=== PATIENT | female | born 1980 | race Caucasian/White ===

== ENCOUNTER 2019-12-02 13:33 | Emergency (ER) | payer SELFPAY ==
[~2019-12-02] VITALS: Ht 167.6 cm; Wt 102.2 kg
[2019-12-02 13:35] VITALS: BP 114/77
[2019-12-02] MEDS ORDERED: IV NORMAL SALINE 1,000ML 1,000 ML IV ONE (14:00)
--- NOTE | 2019-12-02 14:23 | RAD ---
INDICATION: Reason: cough / Spl. Instructions: / History: COMPARISON: None. FINDINGS: Single view of chest obtained. Cardiac silhouette is unremarkable. A definite focal region of airspace consolidation or edema is not seen. IMPRESSION: * No focal airspace consolidation or edema. Electronically signed by: Rizwan Deluca MD (12/02/2019 2:20 PM) [id number]
[2019-12-02] MEDS ORDERED: ONDANSETRON PF 4 MG/2 ML VIAL. IVP ONE (15:00)
[2019-12-02] MEDS ORDERED: FAMOTIDINE 20 MG/2 ML VIAL IVP ONE (15:00)
[2019-12-02] MEDS ORDERED: PANTOPRAZOLE IV 40 MG VIAL. IVP ONE (15:00)
--- NOTE | 2019-12-02 15:04 | PHYS DOC ---
General Adult EDM: Chief Complaint: COUGH HPI: HPI: 39-year-old female presents with 5-day history of cough, fatigue, and abdominal pain. The pain is a cramping and burning of mild intensity. She has had occasional vomiting, but more persistent nausea. The patient has a known peptic ulcer and takes medication for this. She ran out 1 week ago. She has not had a fever at home. She has no known COVID-19 symptoms, but she does go to work and occasionally to the store. Review of Systems: Review of Systems: Constitutional: Denies fever or chills. Fatigue. Eyes: Denies change in visual acuity HENT: Denies nasal congestion or sore throat Respiratory: Cough without shortness of breath Cardiovascular: Denies chest pain or edema GI: nausea, vomiting. : Denies dysuria Musculoskeletal: Denies back pain or joint pain Integument: Denies rash Neurologic: Denies headache, focal weakness or sensory changes Endocrine: Denies polyuria or polydipsia Lymphatic: Denies swollen glands Psychiatric: Denies depression or anxiety Heart Score: Risk Factors: Risk Factors: DM, Current or recent (<one month) smoker, HTN, HLP, family history of CAD, obesity. Risk Scores: Score 0 - 3: 2.5% MACE over next 6 weeks - Discharge Home Score 4 - 6: 20.3% MACE over next 6 weeks - Admit for Clinical Observation Score 7 - 10: 72.7% MACE over next 6 weeks - Early Invasive Strategies Current Medications: Current Meds: Current Medications Medications (Trade) Dose Ordered Sig/Lizzie Start Time Stop Time Status Last Admin Dose Admin Sodium Chloride 1,000 ml @ 1,000 mls/hr 1X ONCE 12/02/19 14:00 12/02/19 14:59 12/02/19 14:55 1,000 MLS/HR Allergies: Allergies: Allergies Coded Allergies Type Severity Reaction Last Updated Verified No Known Drug Allergies 12/02/19 No Physical Exam: PE: Constitutional: Well developed, well nourished, obese, no acute distress, non- toxic appearance. [] HENT: Normocephalic, atraumatic, bilateral external ears normal, oropharynx moist, no oral exudates, nose normal. [] Eyes: PERRLA, EOMI, conjunctiva normal, no discharge. [] Neck: Normal range of motion, no tenderness, supple, no stridor. [] Cardiovascular: Heart rate regular rhythm, no murmur [] Lungs & Thorax: Bilateral breath sounds clear to auscultation [] Abdomen: Bowel sounds normal, soft, no tenderness, no masses, no pulsatile masses. [] Skin: Warm, dry, no erythema, no rash. [] Back: No tenderness, no CVA tenderness. [] Extremities: No tenderness, no cyanosis, no clubbing, ROM intact, no edema. [] Neurologic: Alert and oriented X 3, normal motor function, normal sensory func tion, no focal deficits noted. [] Psychologic: Affect normal, judgement normal, mood normal. [] EKG: EKG: [] Radiology/Procedures: Radiology/Procedures: [] Impressions: INDICATION: Reason: cough / Spl. Instructions: / History: COMPARISON: None. FINDINGS: Single view of chest obtained. Cardiac silhouette is unremarkable. A definite focal region of airspace consolidation or edema is not seen. IMPRESSION: * No focal airspace consolidation or edema. Electronically signed by: Kimo Deluca MD (12/02/2019 2:20 PM) [id number] DICTATED AND SIGNED BY: KIMO DELUCA MD DATE: 12/02/191419 CC: BEVERLEY HUTCHINSON DO; PCP,NO ~ Course & Med Decision Making: Course & Med Decision Making Pertinent Labs and Imaging studies reviewed. (See chart for details) The patient's labs are essentially unremarkable. Her x-ray is negative for ac gilberto findings. We have done a COVID-19 test. These results are pending. I have advised the patient to stay isolated until she gets her results. I have also advised supportive care at home. She is stable for discharge at this time. [] Dragon Disclaimer: Dragon Disclaimer: This electronic medical record was generated, in whole or in part, using a voice recognition dictation system. Departure Departure: Impression: Primary Impression: Suspected COVID-19 virus infection Disposition: 01 HOME/RESIDENCE PRIOR TO ADM Condition: STABLE Referrals: PCP,NO (PCP) Additional Instructions: You have been tested for or diagnosed with COVID-19. It is an infection caused by a new type of coronavirus. COVID-19 will cause cold-like or mild flu symptoms in most. It can cause more severe symptoms like problems breathing in some. There is no treatment for COVID-19. The body will clear the infection over time. Self-care will help to ease discomfort. Steps to Take: Self-Care Rest as needed. Healthy habits may help you feel better. Steps include: Choose healthy foods including fruits and vegetables. Drink water throughout the day. Get plenty of sleep each night. If you smoke, try to quit. It may ease breathing. Avoid alcohol. Keep Others Healthy The virus can spread to others. Droplets are released every time you sneeze or cough. The droplets can get into the mouth, nose, or eyes of people near you and lead to infection. To lower the chances of spreading COVID-19 to others: Stay at home until your doctor has said it is safe to leave. If you tested positive this will mean staying isolated until both of the following are true: At least 7 days have passed since the start of illness. You are free of fever for at least 72 hours without the use of medicine. During this time: - Avoid public areas, events, or transportation. Do not return to work or school until your doctor has said it is safe to do so. - Call ahead if you need to go to a medical center. Let them know you may have COVID-19. It will help them guide you where to go. They may also ask you to wear a facemask when you come to the office. - If you call for emergency medical services, let them know you may have COVID- 19. While at home: - Try to avoid close contact with others. Stay about 6 feet away. - If possible, spend most of your time in a separate room from others. - Use a face mask if you will be in close contact with others such as sharing a room or vehicle. - Have someone wipe down common surfaces in the home. Use household spray gun repairer every day on areas like doorknobs, counters, or sinks. - Cough or sneeze into a tissue. Throw the tissue away right after use. If a tissue is not available, cough or sneeze into your elbow. - Wash your hands often. Wash them after sneezing or coughing. Use soap and water and wash for at least 20 seconds. Alcohol based hand cleaner wall can be used if soap and water is not available. - Do not prepare food for others. Avoid sharing personal items like forks, spoons, or toothbrushes. - Avoid close contact with pets while you are sick. There is no evidence of the virus passing to pets. This is a safety step until more is known about this virus. Isolation can be frustrating. Social interaction can help. Keep in touch with friends and family through phone and tech options. You can still interact with others in your home, just keep a safe distance of about 6 feet. Follow-up: Your doctors office will check in with you to see if there are any changes in your health. You may be asked to keep track of symptoms to share with them. They will also let you know when you are clear to be in public again. Problems to Look Out For: Contact your doctor if your recovery is not going as you expect. Get emergency care if you have problems such as: - Trouble breathing - Nonstop chest pain or pressure - Changes in awareness, confusion, or problems waking - Lips or face have bluish color - Worsening of symptoms If you think you have an emergency, call for emergency medical services right away. As taken from [facility] Justification of Admission: Justification of Admission: Justification of Admission Dx: N/A BEVERLEY HUTCHINSON DO Dec 02, 2019 15:04
[2019-12-02 15:15] LABS: BASO % 1 % (0-3); EOS # 0.2 x10^3/uL (0.0-0.7); EOS % 5 % (0-3); HEMATOCRIT 37.7 % (36.0-47.0); HEMOGLOBIN 12.2 g/dL (12.0-15.5); LYMPH # 1.7 x10^3/uL (1.0-4.8); LYMPH % 35 % (24-48); MEAN CORPUSCULAR HEMOGLOBIN 29 pg (25-35); MEAN CORPUSCULAR HGB CONC 32 g/dL (31-37); MEAN CORPUSCULAR VOLUME 89 fL (79-100); MONO # 0.5 x10^3/uL (0.0-1.1); MONO % 10 % (0-9); NEUT # 2.5 x10^3uL (1.8-7.7); NEUT % 50 % (31-73); PLATELET COUNT 179 x10^3/uL (140-400); RED BLOOD COUNT 4.23 x10^6/uL (3.50-5.40); RED CELL DISTRIBUTION WIDTH 14.5 % (11.5-14.5); WHITE BLOOD COUNT 4.9 x10^3/uL (4.0-11.0)
[2019-12-02 15:52] LABS: ALBUMIN 3.5 g/dL (3.4-5.0); ALBUMIN/GLOBULIN RATIO 1.1 (1.0-1.7); CALCIUM 8.8 mg/dL (8.5-10.1); TOTAL BILIRUBIN 0.3 mg/dL (0.2-1.0); TOTAL PROTEIN 6.6 g/dL (6.4-8.2)
[2019-12-02 15:53] LABS: CREATININE 1.2 mg/dL (0.6-1.0); POTASSIUM 3.4 mmol/L (3.5-5.1)
--- NOTE | 2019-12-03 12:29 | NUR ---
IP: notified patient of COVID result.
--- NOTE | 2019-12-04 09:31 | NUR ---
IP: notified patient of COVID result.
== END 2019-12-02 16:25 | disposition home or self-care (01) ==
LOC: ER 13:33
DX: R05 Cough (principal); R53.83 Other fatigue; R11.2 Nausea with vomiting, unspecified; R10.9 Unspecified abdominal pain; Z20.828 Contact with and (suspected) exposure to other viral communicable diseases
CPT/HCPCS: 36415; 71045; 80053; 85025; 87070; 87880; 96361; 96374; 96375; 99284; C9113; J2405; J3490; J7030; U0003

== ENCOUNTER 2019-12-12 14:31 | Emergency (ER) | payer SELFPAY ==
[~2019-12-12] VITALS: Ht 167.6 cm; Wt 102.2 kg
[2019-12-12] MEDS ORDERED: GUAI-108 PO (15:19)
[2019-12-12] MEDS ORDERED: FLUT9.9S NS (15:19)
[2019-12-12] MEDS ORDERED: FAMO-63 PO (15:19)
--- NOTE | 2019-12-12 15:19 | PHYS DOC ---
Past History Past Medical History: Anxiety, Depression, Kidney Stones Past Surgical History: Appendectomy, Hysterectomy Alcohol Use: Occasionally General Adult EDM: Chief Complaint: SORE THROAT HPI: HPI: History obtained from the patient. Patient is a 39-year-old female past medical history significant for anxiety, depression who presents with chief complaint of general fatigue, sore throat. Patient states she was seen in our facility approximately 10 days ago and had COVID testing obtained. States it was negative. States she did get better after her general fatigue symptoms at that time. However she states she has not felt well over the past 2 days. Denies any objective fevers. Denies any sinus pressure teeth pain. Does note a mild raspy throat. Denies pain with swallowing. Denies changes to her voice. Denies headaches. Denies chest pain or shortness of breath. Does note a mild dry cough. Denies any recent antibiotics. Has tried NyQuil at home with minimal relief. Denies of tobacco abuse. States has a follow-up appoint with her primary care physician in 2 weeks. Denies abdominal pain. Does note some nausea but is been able to eat and drink well otherwise. No other complaints. Review of Systems: Review of Systems: Constitutional: General fatigue Eyes: Denies change in visual acuity HENT: Sore throat Respiratory: Cough Cardiovascular: Denies chest pain or edema GI: Denies abdominal pain, nausea, vomiting, bloody stools or diarrhea : Denies dysuria Musculoskeletal: Denies back pain or joint pain Integument: Denies rash Neurologic: Denies headache, focal weakness or sensory changes Endocrine: Denies polyuria or polydipsia Lymphatic: Denies swollen glands Psychiatric: Denies depression or anxiety Heart Score: Risk Factors: Risk Factors: DM, Current or recent (<one month) smoker, HTN, HLP, family history of CAD, obesity. Risk Scores: Score 0 - 3: 2.5% MACE over next 6 weeks - Discharge Home Score 4 - 6: 20.3% MACE over next 6 weeks - Admit for Clinical Observation Score 7 - 10: 72.7% MACE over next 6 weeks - Early Invasive Strategies Allergies: Allergies: Allergies Coded Allergies Type Severity Reaction Last Updated Verified No Known Drug Allergies 12/12/19 No Physical Exam: PE: Constitutional: Well developed, well nourished, no acute distress, non-toxic appearance. [] HENT: Normocephalic, atraumatic, bilateral external ears normal, oropharynx moist, no oral exudates, nose normal. [] Eyes: PERRLA, EOMI, conjunctiva normal, no discharge. [] Neck: Normal range of motion, no tenderness, supple, no stridor. [] Cardiovascular:Heart rate regular rhythm, no murmur [] Lungs & Thorax: Bilateral breath sounds clear to auscultation [] Abdomen: soft, no tenderness, no masses, no pulsatile masses. [] Skin: Warm, dry, no erythema, no rash. [] Back: No tenderness, no CVA tenderness. [] Extremities: No tenderness, no cyanosis, no clubbing, ROM intact, no edema. [] Neurologic: Alert and oriented X 3, normal motor function, normal sensory function, no focal deficits noted. [] Psychologic: Affect normal, judgement normal, mood normal. [] EKG: EKG: [] Radiology/Procedures: Radiology/Procedures: [] Course & Med Decision Making: Course & Med Decision Making Pertinent Labs and Imaging studies reviewed. (See chart for details) [] Patient is a clinically nontoxic and well-appearing 39-year-old female who presents with chief complaint of general fatigue, sore throat, cough. Initial vital signs unremarkable. Physical exam overall reassuring. Lungs are clear to auscultation bilaterally. No signs of focal bacterial infection. Posterior oropharynx clear. Sinus without tactile tenderness. She does note she was tested for coronavirus approximate 10 days ago and was negative. Patient is requesting COVID testing to be reobtained per her work. This will be obtained and she will be notified of positive results. Given her continued symptoms and repeat testing she was instructed to quarantine again. She will be discharged home with Mucinex, Flonase, and refilled prescriptions for home dyspepsia medication. Instructed to follow-up with her primary care physician. Return precautions discussed and understood. Stable for discharge home. COVID-19 CRITERIA: The patient was evaluated during the global COVID-19 pandemic, and that diagnosis was suspected/considered upon their initial presentation. Their evaluation, treatment and testing was consistent with current guidelines for patients who present with complaints or symptoms that may be related to COVID-19. Lencho Disclaimer: Lencho Disclaimer: This electronic medical record was generated, in whole or in part, using a voice recognition dictation system. Departure Departure: Impression: Primary Impression: Sore throat Additional Impressions: Cough Fatigue Qualified Codes: R53.83 - Other fatigue Disposition: 01 DC HOME SELF CARE/HOMELESS Condition: STABLE Referrals: PCPGEOFF (PCP) Additional Instructions: You have been tested for or diagnosed with COVID-19. It is an infection caused by a new type of coronavirus. COVID-19 will cause cold-like or mild flu symptoms in most. It can cause more severe symptoms like problems breathing in some. There is no treatment for COVID-19. The body will clear the infection over time. Self-care will help to ease discomfort. Steps to Take: Self-Care Rest as needed. Healthy habits may help you feel better. Steps include: Choose healthy foods including fruits and vegetables. Drink water throughout the day. Get plenty of sleep each night. If you smoke, try to quit. It may ease breathing. Avoid alcohol. Keep Others Healthy The virus can spread to others. Droplets are released every time you sneeze or cough. The droplets can get into the mouth, nose, or eyes of people near you and lead to infection. To lower the chances of spreading COVID-19 to others: Stay at home until your doctor has said it is safe to leave. If you tested positive this will mean staying isolated until both of the following are true: At least 7 days have passed since the start of illness. You are free of fever for at least 72 hours without the use of medicine. During this time: - Avoid public areas, events, or transportation. Do not return to work or school until your doctor has said it is safe to do so. - Call ahead if you need to go to a medical center. Let them know you may have COVID-19. It will help them guide you where to go. They may also ask you to wear a facemask when you come to the office. - If you call for emergency medical services, let them know you may have COVID- 19. While at home: - Try to avoid close contact with others. Stay about 6 feet away. - If possible, spend most of your time in a separate room from others. - Use a face mask if you will be in close contact with others such as sharing a room or vehicle. - Have someone wipe down common surfaces in the home. Use household straight slicing machine operator every day on areas like doorknobs, counters, or sinks. - Cough or sneeze into a tissue. Throw the tissue away right after use. If a tissue is not available, cough or sneeze into your elbow. - Wash your hands often. Wash them after sneezing or coughing. Use soap and water and wash for at least 20 seconds. Alcohol based hand cone cleaner can be used if soap and water is not available. - Do not prepare food for others. Avoid sharing personal items like forks, spoons, or toothbrushes. - Avoid close contact with pets while you are sick. There is no evidence of the virus passing to pets. This is a safety step until more is known about this virus. Isolation can be frustrating. Social interaction can help. Keep in touch with friends and family through phone and tech options. You can still interact with others in your home, just keep a safe distance of about 6 feet. Follow-up: Your doctors office will check in with you to see if there are any changes in your health. You may be asked to keep track of symptoms to share with them. They will also let you know when you are clear to be in public again. Problems to Look Out For: Contact your doctor if your recovery is not going as you expect. Get emergency care if you have problems such as: - Trouble breathing - Nonstop chest pain or pressure - Changes in awareness, confusion, or problems waking - Lips or face have bluish color - Worsening of symptoms If you think you have an emergency, call for emergency medical services right away. As taken from [facility] Famotidine (PEPCID) 20 Mg Tablet 20 MG PO BID for dyspepsia for 7 Days, #14 TAB Prov: SHAYE LUIS DO 12/12/19 Fluticasone Propionate (Flonase Allergy Relief) 9.9 Ml [place].susp 2 SPRAYS NS DAILY for nasal congestion for 14 Days, #1 BOTTLE Prov: SHAYE LUIS DO 12/12/19 Guaifenesin/Dextromethorphan (MUCINEX DM ER 600-30 MG TABLET) 1 Each Tab.er.12h 1 TAB PO PRN BID PRN for cough and congestion for 5 Days, #10 TAB 0 Refills Prov: SHAYE LUIS DO 12/12/19 SHAYE LUIS DO Dec 12, 2019 15:19
[2019-12-12 15:40] VITALS: BP 123/93
== END 2019-12-12 15:40 | disposition home or self-care (01) ==
LOC: ER 14:31
DX: J02.9 Acute pharyngitis, unspecified (principal); R53.83 Other fatigue; R05 Cough; Z20.828 Contact with and (suspected) exposure to other viral communicable diseases; Z87.442 Personal history of urinary calculi
CPT/HCPCS: 99283; U0003

== ENCOUNTER 2020-02-02 15:52 | Emergency (ER) | payer SELFPAY ==
[~2020-02-02] VITALS: Ht 167.6 cm; Wt 100.0 kg
[~2020-02-02 15:52] MED LIST: FAMO-63 PO; FLUT9.9S NS; GUAI-108 PO
[2020-02-02 15:58] VITALS: BP 116/87
[2020-02-02] MEDS ORDERED: KETOROLAC 60 MG/2 ML VIAL. IM ONE (16:30)
--- NOTE | 2020-02-02 16:47 | RAD ---
Right knee 4 views, left hip 2 views with one view pelvis. HISTORY: Right knee pain, left hip pain Right knee 3 views were taken of the right knee. There is mild hypertrophic spurring medially. There is no acute fracture. There is no joint effusion. Left hip with one view pelvis AP view was taken of the pelvis. Pelvis is intact without fracture. There is mild disc space narrowing at the lower lumbar spine. AP and lateral views were taken the left hip. There is no fracture or acute osseous abnormality. There is a minimal spur on the femoral head. IMPRESSION: 1. Mild hypertrophic spurring medially without other acute osseous abnormality. 2. Slight spurring on the femoral head without other osseous abnormality in the left hip. 3. No acute osseous abnormality in the pelvis. Electronically signed by: Nathaniel Gonzalez MD (02/02/2020 4:45 PM) [facility]
[2020-02-02] MEDS ORDERED: MELO7.5T5 PO (17:38)
--- NOTE | 2020-02-02 17:38 | PHYS DOC ---
Past History Past Medical History: Depression, Other Additional Past Medical Histor: sleep (RAFI BERRY APRN) Past Surgical History: Appendectomy, , Hysterectomy, Tubal ligation (RAFI BERRY APRN) Alcohol Use: None (RAFI BERRY APRN) Adult General Chief Complaint Chief Complaint: HIP PAIN [facility] HPI Patient is a 39-year-old female presents emergency department with complaints of left hip and right knee pain for the past 3 weeks after having been manipulated by her chiropractor. Patient states that her pain is currently a 10/10 on a 1- 10 pain scale. Patient states that she did not injure her left hip nor her right knee, however has just been having chronic pains for what she says is quite some time possibly a year and has followed up with a chiropractor because she thought that would help. Patient states that she last took 5 tablets of extra strength Tylenol over the past 3 to 4 days without relief of pain. Patient denies any other injuries, denies any other illnesses. Patient states no one else living in her home is having similar symptoms, or illnesses. (RAFI BERRY APRN) Review of Systems Review of Systems Constitutional: Denies fever or chills Eyes: Denies change in visual acuity, redness, or eye pain HENT: Denies nasal congestion or sore throat Respiratory: Denies cough or shortness of breath Cardiovascular: No additional information not addressed in HPI GI: Denies abdominal pain, nausea, vomiting, bloody stools or diarrhea : Denies dysuria or hematuria Musculoskeletal: Denies back pain, complains of left hip and right knee pain Integument: Denies rash or skin lesions Neurologic: Denies headache, focal weakness or sensory changes Endocrine: Denies polyuria or polydipsia All other systems were reviewed and found to be within normal limits, except as documented in this note. Patient reports a surgical history of L4-L5 and S1 hernia repair 1-1/2 years ago , appendectomy repair 15 years ago, hysterectomy in 2010, kidney stones removed 7 months ago, 16 years ago, colonoscopy 2 years ago with polyp removal. (RAFI BERRY APRN) Family History Family History Patient states that her mother and father are generally healthy and there is no family history significant to this ER visit today. (RAFI BERRY APRN) Current Medications Current Medications Patient denies taking home prescription medications. Current Medications Medications (Trade) Dose Ordered Sig/Lizzie Start Time Stop Time Status Last Admin Dose Admin Ketorolac Tromethamine (Toradol Im) 60 mg 1X ONCE 02/02/20 16:30 02/02/20 16:31 DC 02/02/20 16:53 60 MG (RAFI BERRY APRN) Allergies Allergies Allergies Coded Allergies Type Severity Reaction Last Updated Verified No Known Drug Allergies 12/12/19 No (RAFI BERRY APRN) Physical Exam Physical Exam Constitutional: Well developed, well nourished, no acute distress, non-toxic appearance. HENT: Normocephalic, atraumatic, bilateral external ears normal, oropharynx moist, no oral exudates, nose normal. Eyes: PERRLA, EOMI, conjunctiva normal, no discharge. Neck: Normal range of motion, no tenderness, supple, no stridor. Cardiovascular:Heart rate regular rhythm, no murmur Lungs & Thorax: Bilateral breath sounds clear to auscultation Abdomen: Bowel sounds normal, soft, no tenderness, no masses, no pulsatile masses. Skin: Warm, dry, no erythema, no rash. Back: No tenderness, no CVA tenderness. Extremities: No tenderness, no cyanosis, no clubbing, ROM intact, no edema. Full AROM/PROM of right knee and left hip, no crepitus noted, no deformity noted, no swelling, no erythema, no ecchymotic areas noted. Distal cap refill less than 2 seconds. +2 dorsalis pedis and posterior tibial pulses bilaterally. No numbness or tingling to the lower extremities. Neurologic: Alert and oriented X 3, normal motor function, normal sensory function, no focal deficits noted. Psychologic: Affect normal, judgement normal, mood normal. (RAFI BERRY APRN) Current Patient Data Vital Signs Vital Signs Date Time Temp Pulse Resp B/P (MAP) Pulse Ox O2 Delivery O2 Flow Rate FiO2 02/02/20 15:58 97.6 108 16 116/87 (97) 97 Room Air (RAFI BERRY APRN) EKG EKG [] (RAFI BERRY APRN) Radiology/Procedures Radiology/Procedures STATUS: REG ER ORD. PHYSICIAN: RAFI BERRY APRN REASON: Right knee PAIN FROM CHIROPRACTOR MANIPULATION PROCEDURE: KNEE RIGHT 4V Right knee 4 views, left hip 2 views with one view pelvis. HISTORY: Right knee pain, left hip pain Right knee 3 views were taken of the right knee. There is mild hypertrophic spurring medially. There is no acute fracture. There is no joint effusion. Left hip with one view pelvis AP view was taken of the pelvis. Pelvis is intact without fracture. There is mild disc space narrowing at the lower lumbar spine. AP and lateral views were taken the left hip. There is no fracture or acute osseous abnormality. There is a minimal spur on the femoral head. IMPRESSION: 1. Mild hypertrophic spurring medially without other acute osseous abnormality. 2. Slight spurring on the femoral head without other osseous abnormality in the left hip. 3. No acute osseous abnormality in the pelvis. Electronically signed by: Nathaniel Gonzalez MD (02/02/2020 4:45 PM) [facility] DICTATED AND SIGNED BY: NATHANIEL GONZALEZ MD DATE: 02/02/20 1645 CC: RAFI BERRY APRN; CIARA BLANCO ~MTH0 0 (RAFI BERRY APRN) Heart Score Risk Factors: Risk Factors: DM, Current or recent (<one month) smoker, HTN, HLP, family history of CAD, obesity. Risk Scores: Risk Factors: DM, Current or recent (<one month) smoker, HTN, HLP, family history of CAD, obesity. (RAFI BERRY APRN) Course & Med Decision Making Course & Med Decision Making Pertinent Labs and Imaging studies reviewed. (See chart for details) 39-year-old patient reported to the emergency department with left hip and right knee pain after being manipulated by a chiropractor for relief of chronic aches and pains of these 2 joints. Physical examination was unremarkable. However given the patient's complaints of pain of 10/10 on a 1-10 pain scale, 60 mg of Toradol was ordered IM. X-ray imaging of the left hip and pelvis along with the right knee were done. Radiologist interpreted right knee is negative for acute process, interpreted left hip and pelvis as small bony spur of the left femoral head. Discussed findings with patient and reexamination patient found marika atkinson's pain down to a 1/10 1-10 pain scale. Will start patient on 7.5 mg of Mobic, patient is to see her primary care provider this week to let them know she is on new medication Mobic, and to have her follow-up with an home health specialist regarding her abnormal x-rays. Patient gave verbal understanding of prescription medications, follow-up with primary care physician, follow-up with home health specialist. Patient gave understanding of return to ER concerns, patient had no further questions or concerns, patient discharged home without incident. Diagnosis of hip pain most likely related to bone spur of left femoral head as interpreted by house radiologist. Related to radiologist interpretation of x- ray, femoral neck fracture is unlikely, also unlikely pelvis fracture, dislocation of hip, groin injury, tendinitis or bursitis, this is unlikely a avascular necrosis of the hip. (RAFI BERRY APRN) Dragon Disclaimer Dragon Disclaimer This electronic medical record was generated, in whole or in part, using a voice recognition dictation system. (RAFI BERRY APRN) Attending Co-Sign The patient was seen and well-appearing. The chart was reviewed. The case was discussed. Agree with the plan of care. (RL JARQUIN DO) Departure Departure: Impression: Primary Impression: Hip joint pain Disposition: 01 DC HOME SELF CARE/HOMELESS Condition: IMPROVED Referrals: CIARA BLANCO (PCP) Patient Instructions: Hip Pain Additional Instructions: Please take medications as prescribed, follow-up with your primary care physician soon, please see a home health specialist regarding your left hip spur of the femoral head. Return to emergency department for worsening symptoms, or other concerns. EMERGENCY DEPARTMENT GENERAL DISCHARGE INSTRUCTIONS Thank you for coming to [facility] (ED) today and trusting us with you care. We trust that you had a positivie experience in our Emergency Department. If you wish to speak to the department management, you may call the director at [phone]. YOUR FOLLOW UP INSTRUCTIONS ARE FOLLOWS: 1. Do you have a private Doctor? If you do not have a private doctor, please ask for a resource list of physicians or clinics that may be able to assist you with follow up care. 2. The Emergency Physician has interpreted your x-rays. The X-Ray specialist will also review them. If there is a change in the findings, you will be notified in 48 hours when at all possible. 3. A lab test or culture has been done, your results will be reviewed and you will be notified if you need a change in treatment. ADDITIONAL INSTRUCTIONS AND INFORMATION: 1. Your care today has been supervised by a physician who is specially trained in emergency care. Many problems require more than one evaluation for a complete diagnosis and treatment. We recommend that you schedule your follow up appointment as recommended to ensure complete treatment of you illness or injury. If you are unable to obtain follow up care and continue to have a problem, or if your condition worsens, we recommend that you return to the ED. 2. We are not able to safely determine your condition over the phone nor are we able to give sound medical advice over the phone. For these safety reasons, if you call for medical advice we will ask you to come to the ED for further evaluation. 3. If you have any questions regarding these discharge instructions please call the ED at [phone]. SAFETY INFORMATION: In the interest of safety, wellness, and injury prevention; we encourage you to wear your sealbelt, if you smoke; quite smoking, and we encourage family to use a protective helmet for bicycling and other sporting events that present an increased risk for head injury. IF YOUR SYMPTOMS WORSEN OR NEW SYMPTOMS DEVELOP, OR YOU HAVE CONCERNS ABOUT YOUR CONDITION; OR IF YOUR CONDITION WORSENS WHILE YOU ARE WAITING FOR YOUR FOLLOW UP APPOINTMENT; EITHER CONTACT YOUR PRIMARY CARE DOCTOR, THE PHYSICIAN WHOSE NAME AND NUMBER YOU WERE GIVEN, OR RETURN TO THE ED IMMEDIATELY. Scripts Meloxicam (MOBIC) 7.5 Mg Tablet 1 TAB PO DAILY for HIP PAIN, #30 TAB 0 Refills TAKE ONE PER DAY FOR HIP PAIN Prov: RAFI BERRY APRN 02/02/20 Problem Qualifiers Primary Impression: Hip joint pain Laterality: left Qualified Codes: M25.552 - Pain in left hip RAFI BERRY APRN Feb 02, 2020 17:38 RL JARQUIN DO Feb 04, 2020 13:08
== END 2020-02-02 17:51 | disposition home or self-care (01) ==
LOC: ER 15:52
DX: M25.552 Pain in left hip (principal); M25.561 Pain in right knee; F32.9 Major depressive disorder, single episode, unspecified; Z90.89 Acquired absence of other organs; Z98.890 Other specified postprocedural states; Z90.710 Acquired absence of both cervix and uterus; Z98.51 Tubal ligation status
CPT/HCPCS: 73502; 73564; 96372; 99284; J1885

== ENCOUNTER 2020-03-13 09:45 | Emergency (ER) | payer SELFPAY ==
[~2020-03-13] VITALS: Ht 167.6 cm; Wt 100.0 kg
[~2020-03-13 09:45] MED LIST changes: +MELO7.5T5 PO
[2020-03-13 10:11] VITALS: BP 154/65
--- NOTE | 2020-03-13 10:15 | PHYS DOC ---
Past History Past Medical History: Anxiety, Depression, High Cholesterol, Migraines, Other Additional Past Medical Histor: sleep Past Surgical History: Appendectomy, , Hysterectomy, Tubal ligation Alcohol Use: None Adult General Chief Complaint Chief Complaint: NAUSEA/VOMITING/DIARRHEA [facility] Patient is a 39-year-old female presenting with URI-like symptoms and nausea. Reports onset was approximately 72 hours. Nothing known makes better or worse. Patient denies any focal pain. Patient states " a lot of people are out at work recently for Covid", is here for testing today. Denies any fever, syncope, chest pain, productive cough, abdominal pain, changes in bladder or bowel function. She is not immunocompromised Review of Systems Review of Systems Fourteen body systems of review of systems have been reviewed. See HPI for pertinent positives and negative responses, other dubois all other systems are negative, non-pertinent or non-contributory Allergies Allergies Allergies Coded Allergies Type Severity Reaction Last Updated Verified No Known Drug Allergies 12/12/19 No Physical Exam Physical Exam General: Appears well, non toxic, and comfortable Skin: Warm, dry. Normal for ethnicity. HEENT: Atraumatic. PERRLA. Rhinorrhea and congestion. Nasal turbinates boggy b/l. Moist mucous membranes. Uvula midline. Maintaining secretions. No phonation changes. Neck: Trachea midline. Normal ROM. No stridor. Respiratory: Normal WOB. CTAB w/o w/r/r. No tachypnea. Cardiovascular: Regular rate and rhythm. Normal peripheral perfusion. Abdomen: Soft. Non tender. No distension. No guarding or tenderness, nonacute abdomen Back: Normal ROM. Musculoskeletal: No swelling or deformity. Neuro: Alert and oriented x 4. MAEE. Lymph: No cervical LAD. Psych: Normal affect and mood. Current Patient Data Vital Signs Vital Signs Date Time Temp Pulse Resp B/P (MAP) Pulse Ox O2 Delivery O2 Flow Rate FiO2 03/13/20 09:54 98.0 102 16 171/94 (119) 97 Room Air EKG EKG [] Radiology/Procedures Radiology/Procedures [] Heart Score Risk Factors: Risk Factors: DM, Current or recent (<one month) smoker, HTN, HLP, family history of CAD, obesity. Risk Scores: Risk Factors: DM, Current or recent (<one month) smoker, HTN, HLP, family history of CAD, obesity. Course & Med Decision Making Course & Med Decision Making I discussed most likely diagnosis of viral syndrome, cannot rule out COVID-19 given current pandemic, patient tested for this with test pending. I disclose there is no indication for further diagnostic work-up and otherwise hemodynamically stable well-appearing nontoxic patient. Patient has had prior hysterectomy, no indication for urine . I advised continued supportive care at home with self quarantine instructions. I stressed need for close outpatient follow-up to review today's ER visit when appropriate/safe. Strict return precautions were also discussed at length with good understanding by patient. Patient voiced understanding and agreement with the plan. Patient knows to come back for repeat evaluation if concerning signs or symptoms present prior to outpatient follow-up. Dragon Disclaimer Dragon Disclaimer This electronic medical record was generated, in whole or in part, using a voice recognition dictation system. Departure Departure: Impression: Primary Impression: Person under investigation for COVID-19 Disposition: 01 DC HOME SELF CARE/HOMELESS Condition: GOOD Referrals: CIARA BLANCO (PCP) Additional Instructions: You were seen for URI-like symptoms and nausea, given current pandemic cannot definitively rule out COVID-19. Your physical exam was reassuring. As disclose, there was no further indication for further diagnostic work-up in ER setting. We tested you for COVID-19 but this test does not come back for 1 to 2 days. In the meantime you need to quarantine yourself at home away from all other individuals, especially those who are elderly or have any other chronic health issues or an immunocompromised status. You should return to the ED if you develop worsening cough, shortness of breath, chest pain, or any other new or concerning symptoms. Alternate Tylenol and ibuprofen as needed for body aches and pain. If your test does come back positive you need to quarantine yourself for 10 days until symptom-free. You should make sure to drink plenty of fluids and get plenty of rest. RL JARQUIN DO Mar 13, 2020 10:15
--- NOTE | 2020-03-16 09:06 | NUR ---
IP: notified patient of COVID result.
== END 2020-03-13 10:18 | disposition home or self-care (01) ==
LOC: ER 09:45
DX: R11.0 Nausea (principal); Z20.828 Contact with and (suspected) exposure to other viral communicable diseases; F41.9 Anxiety disorder, unspecified; F32.9 Major depressive disorder, single episode, unspecified; E78.00 Pure hypercholesterolemia, unspecified; G43.909 Migraine, unspecified, not intractable, without status migrainosus; Z90.89 Acquired absence of other organs; Z90.710 Acquired absence of both cervix and uterus; Z98.51 Tubal ligation status; Z98.890 Other specified postprocedural states
CPT/HCPCS: 99283; U0003

== ENCOUNTER 2020-03-17 18:24 | Emergency (ER) | payer SELFPAY ==
[~2020-03-17] VITALS: Ht 167.6 cm; Wt 100.0 kg
--- NOTE | 2020-03-17 19:06 | PHYS DOC ---
Past History Past Medical History: Anxiety, Depression, High Cholesterol, Migraines, Other Additional Past Medical Histor: sleep Past Surgical History: Appendectomy, , Hysterectomy, Tubal ligation Alcohol Use: None General Adult EDM: Chief Complaint: NAUSEA/VOMITING/DIARRHEA HPI: HPI: ".. My doctor stopped the refill of my Imtrex... and I am getting my Migraines again... " Patient is a 39 year old female who presents with above hx and complaints n ausea, vomiting, migraine symptoms. Patient has longstanding history of migraines. Has recently had success with Imitrex for blunting course of a migraine. Patient has had previous CT head which were reportedly normal. Patient denies any intake of bad food. No recent travel. No specific ill contacts. No history of fever or chills. Normally follows at [facility] for care. Recent Covid test was negative. Patient does have past medical history of anxiety, depression, elevated cholesterol, migraines, insomnia unable to maintain duration or adequate sleep. Patient denies any illicit drug use. Patient denies any alcohol use. Patient has had previous surgeries appendectomy, , hysterectomy and tubal ligation. Patient currently ambulatory without significant discomfort. Localizes her migraine pain on posterior neck and radiates upward top of scalp. There is no temporal artery tenderness. There is no bruits of carotids. It is right-hand dominant. Pt. did have one loose stool earlier today. Review of Systems: Review of Systems: Constitutional: Denies fever or chills Eyes: Denies change in visual acuity HENT: Denies nasal congestion or sore throat Respiratory: Denies cough or shortness of breath Cardiovascular: Denies chest pain or edema GI: Complains of nausea, vomiting,. Denies bloody stools or diarrhea : Denies dysuria Musculoskeletal: Denies back pain or joint pain Integument: Denies rash Neurologic: Complains of migraine headache,. Denies focal weakness or sensory changes Endocrine: Denies polyuria or polydipsia Lymphatic: Denies swollen glands Psychiatric: Denies depression or anxiety Family History: Family History: Noncontributory to presentation. Current Medications: Current Meds: See nursing for home meds. Allergies: Allergies: Allergies Coded Allergies Type Severity Reaction Last Updated Verified No Known Drug Allergies 12/12/19 No Physical Exam: PE: Constitutional: no acute distress, non-toxic appearance. [] HENT: Normocephalic, atraumatic, bilateral external ears normal, oropharynx moist, no oral exudates, nose normal. Scalp tenderness. Eyes: PERRLA, EOMI, conjunctiva normal, no discharge. Myopia. (Not wearing her glasses). Fundus benign Neck: Normal range of motion, no tenderness, supple, no stridor. [] Cardiovascular:Heart rate regular rhythm, no murmur [] Lungs & Thorax: Bilateral breath sounds equal apex on auscultation [], .A few scattered wheezes Abdomen: Bowel sounds hyperactive, soft, no tenderness, no masses, no pulsatile masses. Obese. Old surgery scars. Skin: Warm, dry, no erythema, no rash. [] Back: No tenderness, no CVA tenderness. [] Extremities: No tenderness, no cyanosis, no clubbing, ROM intact, no edema. No cording appreciated Neurologic: Alert and oriented X 3, moves extremities on request, has distal sensory, no gross focal deficits noted. [] DTRs +2 at patella and brachial. No drift. Certified Nurse equal. Right-hand dominant. Ambulatory without problems. Psychologic: Affect anxious, judgement normal, mood normal. [] EKG: EKG: [] Radiology/Procedures: Radiology/Procedures: Patient declined CT of head. [] Heart Score: Risk Factors: Risk Factors: DM, Current or recent (<one month) smoker, HTN, HLP, family history of CAD, obesity. Risk Scores: Score 0 - 3: 2.5% MACE over next 6 weeks - Discharge Home Score 4 - 6: 20.3% MACE over next 6 weeks - Admit for Clinical Observation Score 7 - 10: 72.7% MACE over next 6 weeks - Early Invasive Strategies Course & Med Decision Making: Course & Med Decision Making Pertinent Labs and Imaging studies reviewed. (See chart for details) Discussed options of treatment with patient. Primary concern is her nausea. Patient has a scheduled appointment at [facility] for follow-up and renewal of her Imitrex. Patient currently declines spinal tap risk and benefits discussed. Pt.declined CT of head at this time. Patient be discharged home with a short course of Imitrex 100 mg at beginning of headache. No more than 200 mg in 24 hours. Zofran 8 as needed for nausea and vomiting. Follow-up with primary care. Return if any concerns. Recommend replacement of her eyeglasses since eyestrain can induce migraines. Must follow up. Impression: 1. Migraine headache 2. Nausea and vomiting secondary to migraine headache [] Dragon Disclaimer: Dragon Disclaimer: This electronic medical record was generated, in whole or in part, using a voice recognition dictation system. Departure Departure: Referrals: CIARA BLANCO (PCP) Scripts Sumatriptan Succinate (IMITREX) 100 Mg Tablet 100 MG PO daily prn for migraine for 10 Days, TAB Prov: ANGELIQUE MADDOX MD 03/17/20 Ondansetron Hcl (ZOFRAN) 4 Mg Tablet 4 MG PO QIDPRN for nv, #30 TAB Prov: ANGELIQUE MADDOX MD 03/17/20 Dragon Disclaimer This chart was dictated in whole or in part using Voice Recognition software in a busy, high-work load, and often noisy Emergency Department environment. It may contain unintended and wholly unrecognized errors or omissions. ANGELIQUE MADDOX MD Mar 17, 2020 19:06
[2020-03-17] MEDS ORDERED: KETOROLAC 60 MG/2 ML VIAL. IM ONE (19:15)
[2020-03-17] MEDS ORDERED: PROCHLORPERAZINE 10 MG/2 ML VIAL. IM ONE (19:15)
[2020-03-17] MEDS ORDERED: SUMAtriptan SUCC 6 MG/0.5 ML VIAL SQ ONE (19:15)
[2020-03-17] MEDS ORDERED: diphenhydrAMINE 50 MG/ML VIAL IM ONE (19:15)
[2020-03-17] MEDS ORDERED: SUMA100T3 PO (19:20)
[2020-03-17] MEDS ORDERED: ONDA4TAB7 PO (19:20)
[2020-03-17] MEDS ORDERED: oxyCODONE/APAP 5/325 1 TAB TABLET PO ONE (19:30)
[2020-03-17 19:49] VITALS: BP 129/89
== END 2020-03-17 20:08 | disposition home or self-care (01) ==
LOC: ER 18:24
DX: G43.909 Migraine, unspecified, not intractable, without status migrainosus (principal); R11.2 Nausea with vomiting, unspecified; F41.9 Anxiety disorder, unspecified; F32.9 Major depressive disorder, single episode, unspecified; E78.00 Pure hypercholesterolemia, unspecified
CPT/HCPCS: 96372; 99284; J0780; J1200; J1885; J3030

== ENCOUNTER 2020-03-23 09:11 | Emergency (ER) | payer SELFPAY ==
[~2020-03-23] VITALS: Ht 167.6 cm; Wt 102.8 kg
[~2020-03-23 09:11] MED LIST changes: +ONDA4TAB7 PO; +SUMA100T3 PO
[2020-03-23] MEDS ORDERED: FLUORESCEIN 1MG EYE STRIP. ONE (09:24)
[2020-03-23] MEDS ORDERED: TETRACAINE 0.5% OPHTH SOLUTION 4ML BOTTLE. ONE (09:25)
[2020-03-23] MEDS ORDERED: ERYT30GE2 TP (09:40)
--- NOTE | 2020-03-23 09:40 | PHYS DOC ---
Past History Past Medical History: Anxiety, Depression, High Cholesterol, Migraines, Other Additional Past Medical Histor: sleep Past Surgical History: Appendectomy, , Hysterectomy, Tubal ligation Alcohol Use: None Adult General Chief Complaint Chief Complaint: EYE PROBLEMS HPI HPI Patient is a 39-year-old female with a past medical history of hypertension anxiety presents emergency department with right-sided eye pain and swelling. Patient states for the last 2 days she is noted worsening redness and swelling of the right periorbital region of the right inferior eyelid. Patient states that the area is also been itchy. Did take 200 of Motrin this morning but no additional medications. Denies any vision changes or double vision Review of Systems Review of Systems Constitutional: Denies fever or chills [] Eyes: Denies change in visual acuity, redness, or eye pain [] HENT: Denies nasal congestion or sore throat [] Respiratory: Denies cough or shortness of breath [] Cardiovascular: No additional information not addressed in HPI [] GI: Denies abdominal pain, nausea, vomiting, bloody stools or diarrhea [] : Denies dysuria or hematuria [] Musculoskeletal: Denies back pain or joint pain [] Integument: Denies rash or skin lesions [] Neurologic: Denies headache, focal weakness or sensory changes [] Endocrine: Denies polyuria or polydipsia [] All other systems were reviewed and found to be within normal limits, except as documented in this note. Current Medications Current Medications Current Medications Medications (Trade) Dose Ordered Sig/Lizzie Start Time Stop Time Status Last Admin Dose Admin Fluorescein Sodium (Ful-Margot 1mg) 1 strip STK-MED ONCE 03/23/20 09:24 03/23/20 09:24 DC Tetracaine HCl (Tetracaine) 40 drop STK-MED ONCE 03/23/20 09:25 03/23/20 09:25 DC Allergies Allergies Allergies Coded Allergies Type Severity Reaction Last Updated Verified No Known Drug Allergies 12/12/19 No Physical Exam Physical Exam Constitutional: Well developed, well nourished, no acute distress, non-toxic appearance. [] HENT: Normocephalic, atraumatic, bilateral external ears normal, oropharynx moist, no oral exudates, nose normal. Right inferior eyelid with a medial erythema and induration Eyes: PERRLA, EOMI, conjunctiva normal, no discharge. [] Neck: Normal range of motion, no tenderness, supple, no stridor. [] Cardiovascular:Heart rate regular rhythm, no murmur [] Lungs & Thorax: Bilateral breath sounds clear to auscultation [] Abdomen: Bowel sounds normal, soft, no tenderness, no masses, no pulsatile masses. [] Skin: Warm, dry, no erythema, no rash. [] Back: No tenderness, no CVA tenderness. [] Extremities: No tenderness, no cyanosis, no clubbing, ROM intact, no edema. [] Neurologic: Alert and oriented X 3, normal motor function, normal sensory function, no focal deficits noted. [] Psychologic: Affect normal, judgement normal, mood normal. [] EKG EKG [] Radiology/Procedures Radiology/Procedures [] Heart Score Risk Factors: Risk Factors: DM, Current or recent (<one month) smoker, HTN, HLP, family history of CAD, obesity. Risk Scores: Risk Factors: DM, Current or recent (<one month) smoker, HTN, HLP, family history of CAD, obesity. Course & Med Decision Making Course & Med Decision Making Pertinent Labs and Imaging studies reviewed. (See chart for details) 39 female with new onset of right inferior eyelid redness most consistent with hordeolum however there is some consideration for possible preseptal cellulitis. We will treat the patient with antibiotic and discharge. Dragon Disclaimer Dragon Disclaimer This electronic medical record was generated, in whole or in part, using a voice recognition dictation system. Departure Departure: Impression: Primary Impression: Hordeolum externum Disposition: 01 DC HOME SELF CARE/HOMELESS Condition: GOOD Referrals: CIARA BLANCO (PCP) Additional Instructions: EMERGENCY DEPARTMENT GENERAL DISCHARGE INSTRUCTIONS Thank you for coming to [facility] Emergency Department (ED) today and trusting us with you care. We trust that you had a positive experience in our Emergency Department. If you wish to speak to the department management, you may call the Director at [phone]. YOUR FOLLOW UP INSTRUCTIONS ARE FOLLOWS: 1. Do you have a private Doctor? If you do not have a private doctor, please ask for a resource list of physicians or clinics that may be able to assist you with follow up care. 2. The Emergency Physicain has interpreted your x-rays. The X-Ray specialist will also review them. If there is a change in the findings, you will be notified in 48 hours when at all possible. 3. A lab test or culture has been done, your results will be reviewed and you will be notified if you need a change in treatment. ADDITIONAL INSTRUCTIONS AND INFORMATION: 1. Your care today has been supervised by a physician who is specially trained in emergency care. Many problems require more than one evaluation for a complete diagnosis and treatment. We recommend that you schedule your follow up appointment as recommended to ensure complete treatment of you illness or injury. If you are unable to obtain follow up care and continue to have a problem, or if your condition worsens, we recommend that you return to the ED. 2. We are not able to safely determine your condition over the phone nor are we able to give sound medical advice over the phone. For these safety reasons, if you call for medical advice we will ask you to come to the ED for further evaluation. 3. If you have any questions regarding these discharge instructions please call the ED at [phone]. SAFETY INFORMATION: In the interest of safety, wellness, and injury prevention; we encourage you to wear your sealbelt, if you smoke; quite smoking, and we encourage family to use a protective helmet for bicycling and other sporting events that present an increased risk for head injury. IF YOUR SYMPTOMS WORSEN OR NEW SYMPTOMS DEVELOP, OR YOU HAVE CONCERNS ABOUT YOUR CONDITION; OR IF YOUR CONDITION WORSENS WHILE YOU ARE WAITING FOR YOUR FOLLOW UP APPOINTMENT; EITHER CONTACT YOUR PRIMARY CARE DOCTOR, THE PHYSICIAN WHOSE NAME AND NUMBER YOU WERE GIVEN, OR RETURN TO THE ED IMMEDIATELY. Scripts Erythromycin Base/Ethanol (ERYTHROMYCIN 2% GEL) 30 Gm Gel..gram. 1 FERDINAND TP BID for eye pain for 15 Days, #30 GM 0 Refills Prov: VERENICE GALE MD 03/23/20 VERENICE GALE MD Mar 23, 2020 09:40
[2020-03-23] MEDS ORDERED: IBUPROFEN 600 MG TABLET. PO ONE (09:45)
[2020-03-23 10:13] VITALS: BP 119/80
== END 2020-03-23 10:09 | disposition home or self-care (01) ==
LOC: ER 09:11
DX: H00.013 Hordeolum externum right eye, unspecified eyelid (principal); I10 Essential (primary) hypertension; F41.9 Anxiety disorder, unspecified; F32.9 Major depressive disorder, single episode, unspecified; G43.909 Migraine, unspecified, not intractable, without status migrainosus; E78.00 Pure hypercholesterolemia, unspecified
CPT/HCPCS: 99283

== ENCOUNTER 2020-04-08 04:22 | Emergency (ER) | payer SELFPAY ==
[~2020-04-08] VITALS: Ht 167.6 cm; Wt 102.3 kg
[~2020-04-08 04:22] MED LIST changes: +ERYT30GE2 TP
[2020-04-08 04:25] VITALS: BP 115/77
--- NOTE | 2020-04-08 04:31 | PHYS DOC ---
Past History Past Medical History: Arthritis, Depression, Other Additional Past Medical Histor: INSOMNIA Past Surgical History: Appendectomy, Hysterectomy, Oophorectomy, Tubal li gation, Other Additional Past Surgical Histo: BACK SURGERY X 2; KIDNEY STONE X 4 Alcohol Use: Occasionally General Adult HPI: HPI: ".. I think I got a cock nagel in my lt. ear..." Patient is a 39 year old female who presents with of cockroach in her Lt. ear. Patient states she is having discomfort from the insect. Has tried to wash it out at home. Patient left ear does have a 2 cm cockroach that is lodged up against her tympanic membrane. Patient denies any history of travel. Patient denies any significant ill contacts. Normally healthy. Pt. follow s with Dr. Vito Bass for care. Review of Systems: Review of Systems: Constitutional: Denies fever or chills Eyes: Denies change in visual acuity HENT: Denies nasal congestion or sore throat . Complains of left ear pain and bug lodged in ear Respiratory: Denies cough or shortness of breath Cardiovascular: Denies chest pain or edema GI: Denies abdominal pain, nausea, vomiting, bloody stools or diarrhea : Denies dysuria Musculoskeletal: Denies back pain or joint pain Integument: Denies rash Neurologic: Denies headache, focal weakness or sensory changes Endocrine: Denies polyuria or polydipsia Lymphatic: Denies swollen glands Psychiatric: Denies depression or anxiety Family History: Family History: Noncontributory to presentation Current Medications: Current Meds: See nursing for home meds Allergies: Allergies: Allergies Coded Allergies Type Severity Reaction Last Updated Verified No Known Drug Allergies 12/12/19 No Physical Exam: PE: Constitutional: in acute distress, non-toxic appearance. [] HENT: Normocephalic, atraumatic, bilateral external ears normal, oropharynx moist, no oral exudates, nose normal. Cockroach lodged in left ear Eyes: PERRLA, EOMI, conjunctiva normal, no discharge. [] Neck: Normal range of motion, no tenderness, supple, no stridor. [] Cardiovascular:Heart rate regular rhythm, no murmur [] Lungs & Thorax: Bilateral breath sounds clear to auscultation [] Abdomen: Bowel sounds normal, soft, no tenderness, no masses, no pulsatile masses. Obese. Old surgery scars Skin: Warm, dry, no erythema, no rash. [] Back: No tenderness, no CVA tenderness. [] Extremities: No tenderness, no cyanosis, no clubbing, ROM intact, no edema. [] Neurologic: Alert and oriented X 3, normal motor function, normal sensory function, no focal deficits noted. [] Psychologic: Affect anxious, judgement normal, mood normal. [] EKG: EKG: [] Radiology/Procedures: Radiology/Procedures: [] Heart Score: Risk Factors: Risk Factors: DM, Current or recent (<one month) smoker, HTN, HLP, family history of CAD, obesity. Risk Scores: Score 0 - 3: 2.5% MACE over next 6 weeks - Discharge Home Score 4 - 6: 20.3% MACE over next 6 weeks - Admit for Clinical Observation Score 7 - 10: 72.7% MACE over next 6 weeks - Early Invasive Strategies Course & Med Decision Making: Course & Med Decision Making Pertinent Labs and Imaging studies reviewed. (See chart for details) Procedure note-removal of foreign body( cockroach) Lt ear-instilled lidocaine with 2% epinephrine and left ear. With use of curette and forceps was able to remove cockroach. Patient to use Cortisporin eardrops 2 drops 4 times a day to left ear. Follow-up primary care. Tylenol and ibuprofen for pain. Return if any concerns Impression: 1. Foreign body left ear-cockroach [] Lencho Disclaimer: Lencho Disclaimer: This electronic medical record was generated, in whole or in part, using a voice recognition dictation system. Departure Departure: Referrals: CIARA BASS (PCP) Lencho Disclaimer This chart was dictated in whole or in part using Voice Recognition software in a busy, high-work load, and often noisy Emergency Department environment. It may contain unintended and wholly unrecognized errors or omissions. ANGELIQUE MADDOX MD Apr 08, 2020 04:31
[2020-04-08] MEDS ORDERED: LIDOCAINE 2% 20 ML VIAL. IJ ONE (06:00)
[2020-04-08] MEDS ORDERED: LIDOCAINE 2%/EPI 1:100,000 20 ML VIAL. IJ ONE (06:00)
[2020-04-08] MEDS ORDERED: NEOMYCIN/POLYMYXIN/HC OTIC SUSPENSION 10ML BOTTLE. AS ONE (06:00)
== END 2020-04-08 05:50 | disposition home or self-care (01) ==
LOC: ER 04:22
DX: T16.2XXA Foreign body in left ear, initial encounter (principal); M19.90 Unspecified osteoarthritis, unspecified site; Z87.442 Personal history of urinary calculi; X58.XXXA Exposure to other specified factors, initial encounter; Y93.89 Activity, other specified; Y92.89 Other specified places as the place of occurrence of the external cause; Y99.8 Other external cause status
CPT/HCPCS: 69200; 99284; J2001

== ENCOUNTER 2020-04-14 11:53 | Emergency (ER) | payer BC ==
[~2020-04-14] VITALS: Ht 167.6 cm; Wt 100.0 kg
[2020-04-14 12:01] VITALS: BP 135/90
--- NOTE | 2020-04-14 12:25 | PHYS DOC ---
Past History Past Medical History: Anxiety, Depression, High Cholesterol, Kidney Stones, Migraines, Other Additional Past Medical Histor: "Pre Diabetic" Past Surgical History: Appendectomy, , Hysterectomy, Tubal ligation Additional Past Surgical Histo: Back surgery of L4-L5 and S1 hernia repair Alcohol Use: Occasionally Adult General Chief Complaint Chief Complaint: FLU SYMPTOM HPI HPI Patient is a 39-year-old female presents to the emergency department complaining of cough for the past 4 days. Patient states she has been experiencing nasal congestion, body aches, loss of taste, chest pain with cough, nausea, diarrhea x2 today, sore throat. Patient denies fever or chills, headaches, loss of smell. Patient reports her pain at a 7/10 on a 1-10 pain scale on the left side of her chest when she takes a deep breath. Patient states that she would like to have a COVID-19 test today. Patient denies any rashes on her skin. Patient denies any other physical complaints or physical concerns. Patient states that she has been off of work and would like to obtain a work excuse today. Review of Systems Review of Systems 14 body systems of review of systems have been reviewed. See HPI for pertinent positives and negative responses, otherwise all other systems are negative, nonpertinent or noncontributory. Allergies Allergies Allergies Coded Allergies Type Severity Reaction Last Updated Verified No Known Drug Allergies 12/12/19 No Physical Exam Physical Exam Constitutional: Well developed, well nourished, no acute distress, non-toxic appearance. HENT: Normocephalic, atraumatic, bilateral external ears normal, oropharynx moist, no oral exudates, nose normal. Oropharynx pink, no peritonsillar abscess appreciated, tonsils within normal limits, no postnasal drip, no uvular edema appreciated. Bilateral nasal turbinates moist, not erythematous. No nasal congestion appreciated. Eyes: PERRLA, EOMI, conjunctiva normal, no discharge. Neck: Normal range of motion, no tenderness, supple, no stridor. Cardiovascular:Heart rate regular rhythm, no murmur, heart sounds S1-S2. Lungs & Thorax: Bilateral breath sounds clear to auscultation all lung patel. Abdomen: Bowel sounds normal, soft, no tenderness, no masses, no pulsatile masses. Skin: Warm, dry, no erythema, no rash. Back: No tenderness, no CVA tenderness. Extremities: No tenderness, no cyanosis, no clubbing, ROM intact, no edema. Neurologic: Alert and oriented X 3, normal motor function, normal sensory function, no focal deficits noted. Psychologic: Affect normal, judgement normal, mood normal. Current Patient Data Vital Signs Vital Signs Date Time Temp Pulse Resp B/P (MAP) Pulse Ox O2 Delivery O2 Flow Rate FiO2 04/14/20 12:01 98.2 111 16 135/90 (105) 96 Room Air EKG EKG EKG performed at 1248 by house respiratory therapy staff, heart rate sinus tachycardia without ectopy with a heart rate of 102, LA interval 0.142, QTc interval 0.46, no acute STEMI, no ACS, no acute ischemia appreciated, EKG interpreted by ED attending physician Dr. Sandra Radiology/Procedures Radiology/Procedures PATIENT: LIZ DOMINGUEZCOUNT: [id number] : 1980 LOCATION: ER AGE: 39 SEX: F EXAM STATUS: REG ER ORD. PHYSICIAN: RAFI BERRY APRN REASON: COUGH, CHEST PAIN, PUI PROCEDURE: CHEST AP ONLY Study: XR CHEST 1V Indication: Cough. Chest pain. Comparison: 12/02/2019 Findings: Unchanged cardiomediastinal silhouette and oxana from the comparison noting lower lung volumes. Similar aeration pattern of the lungs. No dense consolidation, layering effusion or pneumothorax. Impression: There are no radiographic findings that would confirm the presence of a pneumonia. Overall the appearance of the chest is similar to 12/02/2019 comparison noting shallower inspiration. Electronically signed by: JUDY CHOWDHURY MD (04/14/2020 1:23 PM) [id number] DICTATED AND SIGNED BY: JUDY CHOWDHURY MD DATE: 04/14/20 1322 CC: RAFI BERRY APRN; CIARA BLANCO ~MTH0 0 Heart Score HEART Score for Chest Pain: HEART Score for Chest Pain Response (Comments) Value History Slighlty/Non-Suspicious 0 ECG Normal 0 Age < 45 0 Risk Factors 1 or 2 Risk Factors 1 Troponin < Normal Limit 0 Total 1 Risk Factors: Risk Factors: DM, Current or recent (<one month) smoker, HTN, HLP, family history of CAD, obesity. Risk Scores: Risk Factors: DM, Current or recent (<one month) smoker, HTN, HLP, family history of CAD, obesity. Course & Med Decision Making Course & Med Decision Making Pertinent Labs and Imaging studies reviewed. (See chart for details) 39-year-old female, vital signs reviewed, presents emergency department complaining of COVID-19 symptoms. Patient's physical examination unremarkable, related to patient's complaint of chest pain a cardiac work-up was initiated along with rapid flu, rapid strep, COVID-19 testing. Chest x-ray read unremarkable by house radiology interpretation, patient's serum labs unremarkable, negative rapid flu, negative rapid strep. COVID-19 test pending. Discussed findings with patient, patient was given IV Zofran for nausea, patient states that her chest pain has resolved and she no longer feels nauseated. Patient gave verbal understanding of discharge home instructions, COVID-19 social distancing, will do a work excuse for 2 days pending test, will extend 10 more days if testing positive. Patient gave verbal understanding of return to ER precautions or concerns, was discharged home without incident. Patient has a PUI, I wore N95 mask, goggles, face shield, PPE down and gloves during all contact with patient. Dragon Disclaimer Dragon Disclaimer This electronic medical record was generated, in whole or in part, using a voice recognition dictation system. Departure Departure: Impression: Primary Impression: Person under investigation for COVID-19 Additional Impressions: Counseled about COVID-19 virus infection Educated about COVID-19 virus infection Chest wall pain Disposition: 01 DC HOME SELF CARE/HOMELESS Condition: GOOD Referrals: CIARA BLANCO (PCP) Additional Instructions: I have attached COVID-19 virus instructions to this document please review, return to the emergency department for worsening symptoms or other concerns, I have given you a work excuse for 2 days pending the results, if negative you may return to regular work, if positive I will extend this 10 more days. EMERGENCY DEPARTMENT GENERAL DISCHARGE INSTRUCTIONS Thank you for coming to [facility] [place] Department (ED) today and trusting us with you care. We trust that you had a positivie experience in our Emergency Department. If you wish to speak to the department management, you may call the director at [phone]. YOUR FOLLOW UP INSTRUCTIONS ARE FOLLOWS: 1. Do you have a private Doctor? If you do not have a private doctor, please ask for a resource list of physicians or clinics that may be able to assist you with follow up care. 2. The Emergency Physician has interpreted your x-rays. The X-Ray specialist will also review them. If there is a change in the findings, you will be notified in 48 hours when at all possible. 3. A lab test or culture has been done, your results will be reviewed and you will be notified if you need a change in treatment. ADDITIONAL INSTRUCTIONS AND INFORMATION: 1. Your care today has been supervised by a physician who is specially trained in emergency care. Many problems require more than one evaluation for a complete diagnosis and treatment. We recommend that you schedule your follow up appointment as recommended to ensure complete treatment of you illness or injury. If you are unable to obtain follow up care and continue to have a problem, or if your condition worsens, we recommend that you return to the ED. 2. We are not able to safely determine your condition over the phone nor are we able to give sound medical advice over the phone. For these safety reasons, if you call for medical advice we will ask you to come to the ED for further evaluation. 3. If you have any questions regarding these discharge instructions please call the ED at [phone]. SAFETY INFORMATION: In the interest of safety, wellness, and injury prevention; we encourage you to wear your sealbelt, if you smoke; quite smoking, and we encourage family to use a protective helmet for bicycling and other sporting events that present an increased risk for head injury. IF YOUR SYMPTOMS WORSEN OR NEW SYMPTOMS DEVELOP, OR YOU HAVE CONCERNS ABOUT YOUR CONDITION; OR IF YOUR CONDITION WORSENS WHILE YOU ARE WAITING FOR YOUR FOLLOW UP APPOINTMENT; EITHER CONTACT YOUR PRIMARY CARE DOCTOR, THE PHYSICIAN WHOSE NAME AND NUMBER YOU WERE GIVEN, OR RETURN TO THE ED IMMEDIATELY. You have been tested for or diagnosed with COVID-19. It is an infection caused by a new type of coronavirus. COVID-19 will cause cold-like or mild flu symptoms in most. It can cause more severe symptoms like problems breathing in some. There is no treatment for COVID-19. The body will clear the infection over time. Self-care will help to ease discomfort. Steps to Take: Self-Care Rest as needed. Healthy habits may help you feel better. Steps include: Choose healthy foods including fruits and vegetables. Drink water throughout the day. Get plenty of sleep each night. If you smoke, try to quit. It may ease breathing. Avoid alcohol. Keep Others Healthy The virus can spread to others. Droplets are released every time you sneeze or cough. The droplets can get into the mouth, nose, or eyes of people near you and lead to infection. To lower the chances of spreading COVID-19 to others: Stay at home until your doctor has said it is safe to leave. If you tested positive this will mean staying isolated until both of the following are true: At least 7 days have passed since the start of illness. You are free of fever for at least 72 hours without the use of medicine. During this time: - Avoid public areas, events, or transportation. Do not return to work or school until your doctor has said it is safe to do so. - Call ahead if you need to go to a medical center. Let them know you may have COVID-19. It will help them guide you where to go. They may also ask you to wear a facemask when you come to the office. - If you call for emergency medical services, let them know you may have COVID- 19. While at home: - Try to avoid close contact with others. Stay about 6 feet away. - If possible, spend most of your time in a separate room from others. - Use a face mask if you will be in close contact with others such as sharing a room or vehicle. - Have someone wipe down common surfaces in the home. Use household power technician every day on areas like doorknobs, counters, or sinks. - Cough or sneeze into a tissue. Throw the tissue away right after use. If a tissue is not available, cough or sneeze into your elbow. - Wash your hands often. Wash them after sneezing or coughing. Use soap and water and wash for at least 20 seconds. Alcohol based hand wall cleaner can be used if soap and water is not available. - Do not prepare food for others. Avoid sharing personal items like forks, spoons, or toothbrushes. - Avoid close contact with pets while you are sick. There is no evidence of the virus passing to pets. This is a safety step until more is known about this virus. Isolation can be frustrating. Social interaction can help. Keep in touch with friends and family through phone and tech options. You can still interact with others in your home, just keep a safe distance of about 6 feet. Follow-up: Your doctors office will check in with you to see if there are any changes in your health. You may be asked to keep track of symptoms to share with them. They will also let you know when you are clear to be in public again. Problems to Look Out For: Contact your doctor if your recovery is not going as you expect. Get emergency care if you have problems such as: - Trouble breathing - Nonstop chest pain or pressure - Changes in awareness, confusion, or problems waking - Lips or face have bluish color - Worsening of symptoms If you think you have an emergency, call for emergency medical services right away. [facility] Health Problem Qualifiers RAFI BERRY APRN Apr 14, 2020 12:25
[2020-04-14] MEDS ORDERED: ONDANSETRON PF 4 MG/2 ML VIAL. IVP ONE (12:30)
[2020-04-14 12:56] LABS: BASO % 1 % (0-3); EOS % 0 % (0-3); HEMATOCRIT 42.4 % (36.0-47.0); HEMOGLOBIN 13.8 g/dL (12.0-15.5); LYMPH # 1.3 x10^3/uL (1.0-4.8); LYMPH % 34 % (24-48); MEAN CORPUSCULAR HEMOGLOBIN 29 pg (25-35); MEAN CORPUSCULAR HGB CONC 33 g/dL (31-37); MEAN CORPUSCULAR VOLUME 88 fL (79-100); MONO # 0.4 x10^3/uL (0.0-1.1); MONO % 11 % (0-9); NEUT % 54 % (31-73); PLATELET COUNT 147 x10^3/uL (140-400); RED BLOOD COUNT 4.81 x10^6/uL (3.50-5.40); RED CELL DISTRIBUTION WIDTH 15.5 % (11.5-14.5); WHITE BLOOD COUNT 3.7 x10^3/uL (4.0-11.0)
[2020-04-14 13:07] LABS: CALCIUM 9.6 mg/dL (8.5-10.1); CREATININE 1.2 mg/dL (0.6-1.0); POTASSIUM 3.8 mmol/L (3.5-5.1)
[2020-04-14 13:12] LABS: ALBUMIN/GLOBULIN RATIO 1.1 (1.0-1.7); TOTAL BILIRUBIN 0.3 mg/dL (0.2-1.0); TOTAL PROTEIN 7.6 g/dL (6.4-8.2)
[2020-04-14 13:22] LABS: INFLUENZA A PATIENT NEGATIVE (NEGATIVE); INFLUENZA B PATIENT NEGATIVE (NEGATIVE)
--- NOTE | 2020-04-14 13:26 | RAD ---
Study: XR CHEST 1V Indication: Cough. Chest pain. Comparison: 12/02/2019 Findings: Unchanged cardiomediastinal silhouette and oxana from the comparison noting lower lung volumes. Similar aeration pattern of the lungs. No dense consolidation, layering effusion or pneumothorax. Impression: There are no radiographic findings that would confirm the presence of a pneumonia. Overall the appear ance of the chest is similar to 12/02/2019 comparison noting shallower inspiration. Electronically signed by: JUDY CHOWDHURY MD (04/14/2020 1:23 PM) [id number]
--- NOTE | 2020-04-14 15:58 | EKG ---
[address] [address] Test Date: 2020-04-14 Test Time: 12:48:00 Pat Name: LIZ DOMINGUEZ Department: Room: Gender: F Manager Professional Development: : 1980 Requested By: RAFI BERRY Order Number: [id number] Reading MD: Measurements Intervals [place] Rate: 102 P: 38 IA: 142 QRS: 1 QRSD: 80 T: 34 QT: 324 QTc: 426 Interpretive Statements SINUS TACHYCARDIA OTHERWISE NORMAL ECG RI6.02 No previous ECG available for comparison
== END 2020-04-14 14:00 | disposition home or self-care (01) ==
LOC: ER 11:53
DX: R07.89 Other chest pain (principal); J02.9 Acute pharyngitis, unspecified; R19.7 Diarrhea, unspecified; F41.9 Anxiety disorder, unspecified; F32.9 Major depressive disorder, single episode, unspecified; E78.00 Pure hypercholesterolemia, unspecified; G43.909 Migraine, unspecified, not intractable, without status migrainosus; Z20.822 Contact with and (suspected) exposure to COVID-19; Z87.442 Personal history of urinary calculi
CPT/HCPCS: 36415; 71045; 80053; 83690; 84484; 85025; 87070; 87804; 87880; 93005; 96374; 99285; C9803; J2405; U0003

== ENCOUNTER 2020-06-16 10:42 | Emergency (ER) | payer BC ==
[~2020-06-16] VITALS: Ht 167.6 cm; Wt 105.3 kg
[2020-06-16 10:45] VITALS: BP 122/80
--- NOTE | 2020-06-16 11:08 | PHYS DOC ---
Past History Past Medical History: Anxiety, Depression, High Cholesterol, Kidney Stones, Migraines, Other Additional Past Medical Histor: "Pre Diabetic" Past Surgical History: Appendectomy, , Hysterectomy, Tubal ligation Additional Past Surgical Histo: Back surgery of L4-L5 and S1 hernia repair Alcohol Use: Rarely General Adult EDM: Chief Complaint: BACK PAIN OR INJURY HPI: HPI: Patient is a 39-year-old female who presented to ER due to low back pain that radiated to her right leg area. Patient says she was walking her dog yesterday, the dog chased after a squirrel, pulled her really hard, patient feels like it popped her back out of place. Patient has history of this problem in her L4 and L5 area, had operation done of her back 2 years ago. , Patient denies any bowel or bladder incontinence. Review of Systems: Review of Systems: Constitutional: Denies fever or chills Eyes: Denies change in visual acuity HENT: Denies nasal congestion or sore throat Respiratory: Denies cough or shortness of breath Cardiovascular: Denies chest pain or edema GI: Denies abdominal pain, nausea, vomiting, bloody stools or diarrhea : Denies dysuria Musculoskeletal: Positive for low back pain, no joint pain. Integument: Denies rash Neurologic: Denies headache, focal weakness or sensory changes Endocrine: Denies polyuria or polydipsia Lymphatic: Denies swollen glands Psychiatric: Denies depression or anxiety Allergies: Allergies: Allergies Coded Allergies Type Severity Reaction Last Updated Verified No Known Drug Allergies 06/16/20 No Physical Exam: PE: Constitutional: Well developed, well nourished, no acute distress, non-toxic appearance. [] HENT: Normocephalic, atraumatic, bilateral external ears normal, oropharynx moist, no oral exudates, nose normal. [] Eyes: PERRLA, EOMI, conjunctiva normal, no discharge. [] Neck: Normal range of motion, no tenderness, supple, no stridor. [] Cardiovascular:Heart rate regular rhythm, no murmur [] Lungs & Thorax: Bilateral breath sounds clear to auscultation [] Abdomen: Bowel sounds normal, soft, no tenderness, no masses, no pulsatile masses. [] Skin: Warm, dry, no erythema, no rash. [] Back there is midline tenderness to palpation at L4 and L5 area, no CVA tenderness Extremities: No tenderness, no cyanosis, no clubbing, ROM intact, no edema. [] Neurologic: Alert and oriented X 3, normal motor function, normal sensory function, no focal deficits noted. [] Psychologic: Affect normal, judgement normal, mood normal. [] Current Patient Data: Vital Signs: Vital Signs Date Time Temp Pulse Resp B/P (MAP) Pulse Ox O2 Delivery O2 Flow Rate FiO2 06/16/20 10:45 97.9 94 18 122/80 (94) 96 EKG: EKG: [] Radiology/Procedures: Radiology/Procedures: [][address] [address] IMAGING REPORT Signed PATIENT: LIZ DOMINGUEZUNT: [id number] : 1980 LOCATION: ER AGE: 39 SEX: F EXAM STATUS: REG ER ORD. PHYSICIAN: REMINGTON WILSON DO REASON: lower back pain- pain radiates down right leg, 2 prev. spine sx's PROCEDURE: LUMBAR SPINE 2-3V INDICATION: Reason: lower back pain- pain radiates down right leg, 2 prev. spine sx's / Spl. Instructions: / History: COMPARISON: None. IMPRESSION: Lumbar spine: 3 views obtained. Calcifications projecting over left renal shadow measuring up to 15 mm could be secondary to stones. Degenerative changes of the spine with osteophyte formation at the vertebral body endplates as well as facet hypertrophy. No acute fracture or dislocation is seen. Electronically signed by: Kimo Fisher MD (06/16/2020 11:24 AM) [id number] DICTATED AND SIGNED BY: KIMO FISHER MD DATE: 06/16/20 1122 CC: CIARA BLANCO; REMINGTON WILSON DO ~MTH0 0 Heart Score: C/O Chest Pain: N/A Risk Factors: Risk Factors: DM, Current or recent (<one month) smoker, HTN, HLP, family history of CAD, obesity. Risk Scores: Score 0 - 3: 2.5% MACE over next 6 weeks - Discharge Home Score 4 - 6: 20.3% MACE over next 6 weeks - Admit for Clinical Observation Score 7 - 10: 72.7% MACE over next 6 weeks - Early Invasive Strategies Course & Med Decision Making: Course & Med Decision Making Pertinent Labs and Imaging studies reviewed. (See chart for details) [] Lencho Disclaimer: Lencho Disclaimer: This electronic medical record was generated, in whole or in part, using a voice recognition dictation system. Departure Departure: Impression: Primary Impression: Lower back pain Disposition: HOME / SELF CARE / HOMELESS Condition: IMPROVED Referrals: CIARA BLANCO (PCP) FOLLOW UP WITH YOUR DOCTOR NEEDED Patient Instructions: Back Pain, Adult Additional Instructions: Thank you for visiting our Emergency Department. We appreciate you trusting us with your care. If any additional problems come up don't hesitate to return to visit us. Please follow up with your primary care provider so they can plan additional care if needed and know about the problem that you had. If symptoms w orsen come back to the Emergency Department. Any concerning symptoms that start such as chest pain, shortness of air, weakness or numbness on one side of the body, running high fevers or any other concerning symptoms return to the ER. Scripts Cyclobenzaprine Hcl (CYCLOBENZAPRINE HCL) 10 Mg Tablet 1 TAB PO TID PRN for MUSCLE SPASMS, #20 TAB Prov: REMINGTON WILSON DO 06/16/20 Naproxen Sodium (ANAPROX DS) 550 Mg Tablet 1 TAB PO BID PRN for PAIN for 15 Days, #30 TAB 0 Refills Prov: REMINGTON WILSON DO 06/16/20 REMINGTON WILSON DO Jun 16, 2020 11:08
[2020-06-16] MEDS ORDERED: KETOROLAC 60 MG/2 ML VIAL. IM ONE (11:15)
[2020-06-16] MEDS ORDERED: ORPHENADRINE CITRATE 60 MG/2 ML VIAL. IM ONE (11:15)
--- NOTE | 2020-06-16 11:26 | RAD ---
INDICATION: Reason: lower back pain- pain radiates down right leg, 2 prev. spine sx's / Spl. Instruct ions: / History: COMPARISON: None. IMPRESSION: Lumbar spine: 3 views obtained. Calcifications projecting over left renal shadow measuring up to 15 m m could be secondary to stones. Degenerative changes of the spine with osteophyte formation at the ve rtebral body endplates as well as facet hypertrophy. No acute fracture or dislocation is seen. Electronically signed by: Rizwan Deluca MD (06/16/2020 11:24 AM) [id number]
[2020-06-16] MEDS ORDERED: CYCL-331 PO (12:03)
[2020-06-16] MEDS ORDERED: NAPR-682 PO (12:03)
== END 2020-06-16 12:15 | disposition home or self-care (01) ==
LOC: ER 10:42
DX: M54.5 Low back pain (principal); E78.00 Pure hypercholesterolemia, unspecified; G43.909 Migraine, unspecified, not intractable, without status migrainosus; Z87.442 Personal history of urinary calculi; Z90.89 Acquired absence of other organs; Z98.890 Other specified postprocedural states; Z90.710 Acquired absence of both cervix and uterus; Z98.51 Tubal ligation status; X50.9XXA Other and unspecified overexertion or strenuous movements or postures, initial encounter; Y93.K1 Activity, walking an animal; Y92.89 Other specified places as the place of occurrence of the external cause; Y99.8 Other external cause status
CPT/HCPCS: 72100; 96372; 99284; J1885; J2360

== ENCOUNTER 2020-06-18 15:36 | Emergency (ER) | payer BC ==
[~2020-06-18] VITALS: Ht 167.6 cm; Wt 107.5 kg
[~2020-06-18 15:36] MED LIST changes: +CYCL-331 PO; +NAPR-682 PO
[2020-06-18 15:49] VITALS: BP 113/60
[2020-06-18] MEDS ORDERED: DEXAMETHASONE 4 MG TABLET PO ONE (16:15)
--- NOTE | 2020-06-18 16:31 | RAD ---
EXAM: Chest, single view. HISTORY: Cough and weakness. COMPARISON: 04/14/2020 FINDINGS: A frontal view of the chest is obtained. There is no infiltrate, pleural effusion or thorax . The heart is normal in size. IMPRESSION: No acute pulmonary finding. Electronically signed by: Adenike Tariq MD (06/18/2020 4:29 PM) [facility]
--- NOTE | 2020-06-18 17:59 | PHYS DOC ---
Past History Past Medical History: Anxiety, Depression, High Cholesterol, Kidney Stones, Migraines, Other Additional Past Medical Histor: "Pre Diabetic" Past Surgical History: Appendectomy, , Hysterectomy, Tubal ligation Additional Past Surgical Histo: Back surgery of L4-L5 and S1 hernia repair Alcohol Use: Rarely General Adult EDM: Chief Complaint: MULTIPLE COMPLAINTS HPI: HPI: Patient is a [age] year old [sex] who presents with [] Review of Systems: Review of Systems: Constitutional: Denies fever or chills Eyes: Denies redness or eye pain HENT: Denies nasal congestion or sore throat Respiratory: Denies cough or shortness of breath Cardiovascular: Denies chest pain or palpitations GI: Denies abdominal pain, nausea, or vomiting : Denies dysuria or hematuria Musculoskeletal: Denies back pain or joint pain Integument: Denies rash or skin lesions Neurologic: Denies headache, focal weakness or sensory changes Complete systems were reviewed and found to be within normal limits, except as documented in this note. Current Medications: Current Meds: Current Medications Medications (Trade) Dose Ordered Sig/Lizzie Start Time Stop Time Status Last Admin Dose Admin Dexamethasone (Decadron) 10 mg 1X ONCE 06/18/20 16:15 06/18/20 16:23 DC 06/18/20 17:03 10 MG Allergies: Allergies: Allergies Coded Allergies Type Severity Reaction Last Updated Verified No Known Drug Allergies 06/16/20 No Physical Exam: PE: Constitutional: Well developed, well nourished, no acute distress, non-toxic appearance HENT: Normocephalic, atraumatic Eyes: PERRL, EOMI, conjunctiva normal, no discharge Neck: Normal range of motion, no tenderness, supple Lungs & Thorax: No respiratory distress, equal chest rise and fall Abdomen: Soft, no tenderness Skin: Warm, dry, no erythema, no rash Back: No tenderness, no CVA tenderness Extremities: No tenderness, ROM intact, no edema Neurologic: Alert and oriented X 3, normal motor function, normal sensory function, no focal deficits noted Psychologic: Affect normal, judgment normal Current Patient Data: Labs: Laboratory Tests Test 06/18/20 16:17 Group A Streptococcus Rapid Negative (NEGATIVE) Vital Signs: Vital Signs Date Time Temp Pulse Resp B/P (MAP) Pulse Ox O2 Delivery O2 Flow Rate FiO2 06/18/20 15:49 99.8 92 20 113/60 (90) 20 EKG: EKG: [] Radiology/Procedures: Radiology/Procedures: PROCEDURE: CHEST AP ONLY EXAM: Chest, single view. HISTORY: Cough and weakness. COMPARISON: 04/14/2020 FINDINGS: A frontal view of the chest is obtained. There is no infiltrate, pleural effusion or thorax. The heart is normal in size. IMPRESSION: No acute pulmonary finding. Electronically signed by: Adenike Tariq MD (06/18/2020 4:29 PM) [facility] Heart Score: C/O Chest Pain: N/A Course & Med Decision Making: Course & Med Decision Making Pertinent Labs and Imaging studies reviewed. (See chart for details) Patient stable for discharge with outpatient follow-up with PCP. Discussed findings and plan with patient, who acknowledges understanding and agreement. Dragon Disclaimer: Dragon Disclaimer: This electronic medical record was generated, in whole or in part, using a voice recognition dictation system. Departure Departure: Impression: Primary Impression: Viral syndrome Disposition: HOME / SELF CARE / HOMELESS Condition: STABLE Referrals: LEONOR ROBISON (PCP) Patient Instructions: Viral Syndrome Additional Instructions: You have been tested for or diagnosed with COVID-19. It is an infection caused by a new type of coronavirus. COVID-19 will cause cold-like or mild flu symptoms in most. It can cause more severe symptoms like problems breathing in some. There is no treatment for COVID-19. The body will clear the infection over time. Self-care will help to ease discomfort. Steps to Take: Self-Care Rest as needed. Healthy habits may help you feel better. Steps include: Choose healthy foods including fruits and vegetables. Drink water throughout the day. Get plenty of sleep each night. If you smoke, try to quit. It may ease breathing. Avoid alcohol. Keep Others Healthy The virus can spread to others. Droplets are released every time you sneeze or cough. The droplets can get into the mouth, nose, or eyes of people near you and lead to infection. To lower the chances of spreading COVID-19 to others: Stay at home until your doctor has said it is safe to leave. If you tested positive this will mean staying isolated until both of the following are true: At least 7 days have passed since the start of illness. You are free of fever for at least 72 hours without the use of medicine. During this time: - Avoid public areas, events, or transportation. Do not return to work or school until your doctor has said it is safe to do so. - Call ahead if you need to go to a medical center. Let them know you may have COVID-19. It will help them guide you where to go. They may also ask you to wear a facemask when you come to the office. - If you call for emergency medical services, let them know you may have COVID- 19. While at home: - Try to avoid close contact with others. Stay about 6 feet away. - If possible, spend most of your time in a separate room from others. - Use a face mask if you will be in close contact with others such as sharing a room or vehicle. - Have someone wipe down common surfaces in the home. Use household umbrella mender every day on areas like doorknobs, counters, or sinks. - Cough or sneeze into a tissue. Throw the tissue away right after use. If a tissue is not available, cough or sneeze into your elbow. - Wash your hands often. Wash them after sneezing or coughing. Use soap and water and wash for at least 20 seconds. Alcohol based hand cutch cleaner can be used if soap and water is not available. - Do not prepare food for others. Avoid sharing personal items like forks, spoons, or toothbrushes. - Avoid close contact with pets while you are sick. There is no evidence of the virus passing to pets. This is a safety step until more is known about this virus. Isolation can be frustrating. Social interaction can help. Keep in touch with friends and family through phone and tech options. You can still interact with others in your home, just keep a safe distance of about 6 feet. Follow-up: Your doctors office will check in with you to see if there are any changes in your health. You may be asked to keep track of symptoms to share with them. They will also let you know when you are clear to be in public again. Problems to Look Out For: Contact your doctor if your recovery is not going as you expect. Get emergency care if you have problems such as: - Trouble breathing - Nonstop chest pain or pressure - Changes in awareness, confusion, or problems waking - Lips or face have bluish color - Worsening of symptoms If you think you have an emergency, call for emergency medical services right away. As taken from [facility] RAFI AZAR DO Jun 18, 2020 17:59
[2020-06-19] MEDS ORDERED: PRED50TA PO (17:29)
[2020-06-19] MEDS ORDERED: AZIT250T6 PO (17:29)
[2020-06-19] MEDS ORDERED: GUAI118L13 PO (17:29)
== END 2020-06-18 18:08 | disposition home or self-care (01) ==
LOC: ER 15:36
DX: U07.1 COVID-19 (principal); B34.9 Viral infection, unspecified; F41.9 Anxiety disorder, unspecified; F32.9 Major depressive disorder, single episode, unspecified; E78.00 Pure hypercholesterolemia, unspecified; G43.909 Migraine, unspecified, not intractable, without status migrainosus; Z87.442 Personal history of urinary calculi; Z90.89 Acquired absence of other organs; Z98.890 Other specified postprocedural states; Z90.710 Acquired absence of both cervix and uterus; Z98.51 Tubal ligation status
CPT/HCPCS: 71045; 87070; 87880; 99284; C9803; J8540; U0003; U0005

== ENCOUNTER 2020-06-19 15:29 | Emergency (ER) | payer BC ==
[~2020-06-19] VITALS: Ht 167.6 cm; Wt 107.5 kg
[2020-06-19] MEDS ORDERED: PROMETH/CODEINE 6.25/10MG 5 ML SYRUP. PO STA (16:37)
--- NOTE | 2020-06-19 16:43 | PHYS DOC ---
Past History Past Medical History: Anxiety, Depression, High Cholesterol, Kidney Stones, Migraines, Other Additional Past Medical Histor: "Pre Diabetic" Past Surgical History: Appendectomy, , Hysterectomy, Oophorectomy, Tubal ligation Additional Past Surgical Histo: Back surgery of L4-L5 and S1 hernia repair Alcohol Use: Rarely General Adult EDM: Chief Complaint: SHORTNESS OF BREATH HPI: HPI: Patient is a 39-year-old female coming in for cough, chest congestion, rhinorrhea, sore throat the past 2 days. Patient states she saw her primary care provider and had a chest x-ray done yesterday. Was not sent home with any prescriptions. Was told she did not have pneumonia. Was swabbed for Covid but has not gotten the results yet. No known sick contacts. Patient denies a history of asthma, COPD. Denies any history of smoking. No history of blood clots in herself or family. States her cough is productive of whitish phlegm. No vomiting or diarrhea. Review of Systems: Review of Systems: All other systems within normal limits except for as noted in the HPI Allergies: Allergies: Allergies Coded Allergies Type Severity Reaction Last Updated Verified No Known Drug Allergies 06/19/20 No Physical Exam: PE: Constitutional: Well developed, well nourished, no acute distress, non-toxic appearance. [] HENT: Normocephalic, atraumatic, bilateral external ears normal, nose normal. [] Eyes: PERRLA, conjunctiva normal, no discharge. [] Neck: No rigidity, supple, no stridor. [] Cardiovascular: Regular rate and rhythm, brisk cap refill. No murmurs rubs or gallops. [] Lungs & Thorax: Non labored symmetric respirations, no tachypnea or respiratory distress. Clear bilateral breath sounds, cough provoked by deep breath. [] Abdomen: Soft, nondistended. Skin: Warm, dry, no erythema, no rash. [] Back: Unremarkable Extremities: No deformities, range of motion grossly intact, no lower extremity edema [] Neurologic: Alert and oriented X 3, no focal deficits noted. [] Psychologic: Affect normal, judgement normal, mood normal. [] Current Patient Data: Vital Signs: Vital Signs Date Time Temp Pulse Resp B/P (MAP) Pulse Ox O2 Delivery O2 Flow Rate FiO2 06/19/20 15:55 98.1 89 20 139/83 (101) 97 Room Air EKG: EKG: [] Radiology/Procedures: Radiology/Procedures: Chest, PA and Lateral: Technique: PA and lateral views of the chest were obtained. History: Cough. Comparison: 06/18/2020. Findings: Mild cardiomegaly. Mild prominent bilateral perihilar interstitial lung markings could be congestive changes or interstitial infiltrates. IMPRESSION: Mild prominent bilateral perihilar interstitial lung markings could be congestive changes or interstitial infiltrates. [] Heart Score: C/O Chest Pain: N/A Risk Factors: Risk Factors: DM, Current or recent (<one month) smoker, HTN, HLP, family history of CAD, obesity. Risk Scores: Score 0 - 3: 2.5% MACE over next 6 weeks - Discharge Home Score 4 - 6: 20.3% MACE over next 6 weeks - Admit for Clinical Observation Score 7 - 10: 72.7% MACE over next 6 weeks - Early Invasive Strategies Course & Med Decision Making: Course & Med Decision Making Pertinent Labs and Imaging studies reviewed. (See chart for details) [] Dragon Disclaimer: Dragon Disclaimer: This electronic medical record was generated, in whole or in part, using a voice recognition dictation system. Departure Departure: Impression: Primary Impression: Person under investigation for COVID-19 Additional Impression: CAP (community acquired pneumonia) Disposition: 01 HOME / SELF CARE / HOMELESS Condition: STABLE Referrals: LEONOR ROBISON (PCP) Additional Instructions: You have been tested for or diagnosed with COVID-19. It is an infection caused by a new type of coronavirus. COVID-19 will cause cold-like or mild flu symptoms in most. It can cause more severe symptoms like problems breathing in some. There is no treatment for COVID-19. The body will clear the infection over time. Self-care will help to ease discomfort. Steps to Take: Self-Care Rest as needed. Healthy habits may help you feel better. Steps include: Choose healthy foods including fruits and vegetables. Drink water throughout the day. Get plenty of sleep each night. If you smoke, try to quit. It may ease breathing. Avoid alcohol. Keep Others Healthy The virus can spread to others. Droplets are released every time you sneeze or cough. The droplets can get into the mouth, nose, or eyes of people near you and lead to infection. To lower the chances of spreading COVID-19 to others: Stay at home until your doctor has said it is safe to leave. If you tested positive this will mean staying isolated until both of the following are true: At least 7 days have passed since the start of illness. You are free of fever for at least 72 hours without the use of medicine. During this time: - Avoid public areas, events, or transportation. Do not return to work or school until your doctor has said it is safe to do so. - Call ahead if you need to go to a medical center. Let them know you may have COVID-19. It will help them guide you where to go. They may also ask you to wear a facemask when you come to the office. - If you call for emergency medical services, let them know you may have COVID- 19. While at home: - Try to avoid close contact with others. Stay about 6 feet away. - If possible, spend most of your time in a separate room from others. - Use a face mask if you will be in close contact with others such as sharing a room or vehicle. - Have someone wipe down common surfaces in the home. Use household exchange administrator every day on areas like doorknobs, counters, or sinks. - Cough or sneeze into a tissue. Throw the tissue away right after use. If a tissue is not available, cough or sneeze into your elbow. - Wash your hands often. Wash them after sneezing or coughing. Use soap and water and wash for at least 20 seconds. Alcohol based hand supervisor bottle house cleaners can be used if soap and water is not available. - Do not prepare food for others. Avoid sharing personal items like forks, spoons, or toothbrushes. - Avoid close contact with pets while you are sick. There is no evidence of the virus passing to pets. This is a safety step until more is known about this virus. Isolation can be frustrating. Social interaction can help. Keep in touch with friends and family through phone and tech options. You can still interact with others in your home, just keep a safe distance of about 6 feet. Follow-up: Your doctors office will check in with you to see if there are any changes in your health. You may be asked to keep track of symptoms to share with them. They will also let you know when you are clear to be in public again. Problems to Look Out For: Contact your doctor if your recovery is not going as you expect. Get emergency care if you have problems such as: - Trouble breathing - Nonstop chest pain or pressure - Changes in awareness, confusion, or problems waking - Lips or face have bluish color - Worsening of symptoms If you think you have an emergency, call for emergency medical services right away. As taken from [facility] Scripts Guaifenesin/Codeine Phosphate (GUAIFENESIN-CODEINE SYRUP) 118 Ml Liquid 5 ML PO Q6HRS PRN for COUGH for 5 Days, #120 ML Prov: YESI TEAGUE MD 06/19/20 Azithromycin (AZITHROMYCIN TABLET) 250 Mg Tablet 1 PKG PO UD for antibiotic for 5 Days, #6 TAB 0 Refills 2 the first day followed by 1 for days 2-5 Prov: YESI TEAGUE MD 06/19/20 Prednisone (PREDNISONE) 50 Mg Tablet 1 TAB PO DAILY for steroid for 5 Days, #5 TAB Prov: YESI TEAGUE MD 06/19/20 YESI TEAGUE MD Jun 19, 2020 16:43
[2020-06-19] MEDS ORDERED: methylPREDNISolone SOD SUCC PF 125 MG/2 ML VIAL. IM ONE (16:45)
[2020-06-19] MEDS ORDERED: IPRATRPIUM/ALBUTEROL 0.5/2.5MG 3 ML NEBU. NEB ONE (16:45)
[2020-06-19] MEDS ORDERED: IPRATRPIUM/ALBUTEROL 0.5/2.5MG 3 ML NEBU. ONE (16:49)
--- NOTE | 2020-06-19 17:19 | RAD ---
Chest, PA and Lateral: Technique: PA and lateral views of the chest were obtained. History: Cough. Comparison: 06/18/2020. Findings: Mild cardiomegaly. Mild prominent bilateral perihilar interstitial lung markings could be congestive changes or interstitial infiltrates. IMPRESSION: Mild prominent bilateral perihilar interstitial lung markings could be congestive changes or intersti tial infiltrates. Electronically signed by: Andrew Akbar MD (06/19/2020 5:16 PM) [id number]
[2020-06-19] MEDS ORDERED: AZIT250T6 PO (17:29)
[2020-06-19] MEDS ORDERED: PRED50TA PO (17:29)
[2020-06-19] MEDS ORDERED: GUAI118L13 PO (17:29)
[2020-06-19 17:42] VITALS: BP 131/79
== END 2020-06-19 17:45 | disposition home or self-care (01) ==
LOC: ER 15:29
DX: J18.9 Pneumonia, unspecified organism (principal); E78.00 Pure hypercholesterolemia, unspecified; G43.909 Migraine, unspecified, not intractable, without status migrainosus; I51.7 Cardiomegaly
CPT/HCPCS: 71046; 94640; 96372; 99283; J2930

== ENCOUNTER 2020-09-27 13:14 | Emergency (ER) | payer SELFPAY ==
[~2020-09-27] VITALS: Ht 167.6 cm; Wt 107.5 kg
[~2020-09-27 13:14] MED LIST changes: +AZIT250T6 PO; +GUAI118L13 PO; +PRED50TA PO
[2020-09-27 13:20] VITALS: BP 133/86
[2020-09-27] MEDS ORDERED: CYCL-331 PO (13:58)
[2020-09-27] MEDS ORDERED: MELO15TA23 PO (13:58)
--- NOTE | 2020-09-27 13:59 | PHYS DOC ---
Past History Past Medical History: Anxiety, Depression, High Cholesterol, Kidney Stones, Migraines, Other Additional Past Medical Histor: "Pre Diabetic" Past Surgical History: Appendectomy, , Hysterectomy, Oophorectomy, Tubal ligation Additional Past Surgical Histo: Back surgery of L4-L5 and S1 hernia repair Alcohol Use: Rarely General Adult EDM: Chief Complaint: MULTIPLE COMPLAINTS HPI: HPI: Patient is a 40-year-old female coming in for complaints of bilateral posterior neck, right shoulder, hip, back pain. Patient states that she has been having pain for the past year but says over the past 1 to 2 months it has been getting worse. Took Tylenol few days ago without much improvement. Patient has not seen her primary care doctor for this complaint. Patient has had 9 visits to the emergency department this year, asked why she has not addressed this on prior visits or why it is any different today. Asked patient which is a symptom is bothersome that brought her in today she says it is her right shoulder. Denies any trauma or injuries. Review of Systems: Review of Systems: All other systems within normal limits except for as noted in the HPI Allergies: Allergies: Allergies Coded Allergies Type Severity Reaction Last Updated Verified No Known Drug Allergies 06/19/20 No Physical Exam: PE: Constitutional: Well developed, well nourished, no acute distress, non-toxic appearance. Obese [] HENT: Normocephalic, atraumatic, bilateral external ears normal, nose normal. [] Eyes: PERRLA, conjunctiva normal, no discharge. [] Neck: No rigidity, supple, no stridor. No C-spine tenderness, step-off, or deformity. Tenderness over paraspinous muscles [] Cardiovascular: Regular rate and rhythm, brisk cap refill [] Lungs & Thorax: Non labored symmetric respirations, no tachypnea or respiratory distress [] Abdomen: Soft, nondistended. Skin: Warm, dry, no erythema, no rash. [] Back: Unremarkable Extremities: No deformities, range of motion grossly intact, no lower extremity edema. Tenderness and muscle spasm over right trapezius, range of motion of right shoulder intact. [] Neurologic: Alert and oriented X 3, no focal deficits noted. [] Psychologic: Affect normal, judgement normal, mood normal. [] Current Patient Data: Vital Signs: Vital Signs Date Time Temp Pulse Resp B/P (MAP) Pulse Ox O2 Delivery O2 Flow Rate FiO2 09/27/20 13:20 98.4 100 18 133/86 100 Room Air EKG: EKG: [] Radiology/Procedures: Radiology/Procedures: [] Heart Score: C/O Chest Pain: No Risk Factors: Risk Factors: DM, Current or recent (<one month) smoker, HTN, HLP, family history of CAD, obesity. Risk Scores: Score 0 - 3: 2.5% MACE over next 6 weeks - Discharge Home Score 4 - 6: 20.3% MACE over next 6 weeks - Admit for Clinical Observation Score 7 - 10: 72.7% MACE over next 6 weeks - Early Invasive Strategies Course & Med Decision Making: Course & Med Decision Making History and physical states musculoskeletal pain and muscle spasm. Notification for work-up in emergency department. Discussed patient is to follow-up with her primary care provider if muscle relaxers and NSAIDs do not work, also discussed other treatment options for muscle spasm, and possible follow-up with physical therapy if symptoms not able to resolve Lencho Disclaimer: Lencho Disclaimer: This electronic medical record was generated, in whole or in part, using a voice recognition dictation system. Departure Departure: Impression: Primary Impression: Muscle spasm Disposition: HOME / SELF CARE / HOMELESS Condition: STABLE Referrals: LEONOR ROBISON (PCP) Patient Instructions: Back Exercises Scripts Cyclobenzaprine Hcl (CYCLOBENZAPRINE HCL) 10 Mg Tablet 1 TAB PO TID PRN for MUSCLE PAIN for 5 Days, #15 TAB Prov: YESI TEAGUE MD 09/27/20 Meloxicam (MELOXICAM) 15 Mg Tablet 1 TAB PO DAILY PRN for PAIN for 10 Days, #10 TAB 0 Refills Prov: YESI TEAGUE MD 09/27/20 YESI TEAGUE MD Sep 27, 2020 13:59
== END 2020-09-27 14:06 | disposition home or self-care (01) ==
LOC: ER 13:14
DX: M62.838 Other muscle spasm (principal); M54.2 Cervicalgia; M25.511 Pain in right shoulder; M25.551 Pain in right hip; M54.89 Other dorsalgia; E78.00 Pure hypercholesterolemia, unspecified; G43.909 Migraine, unspecified, not intractable, without status migrainosus; Z87.442 Personal history of urinary calculi; Z90.89 Acquired absence of other organs; Z98.890 Other specified postprocedural states; Z90.710 Acquired absence of both cervix and uterus; Z98.51 Tubal ligation status
CPT/HCPCS: 99283

== ENCOUNTER 2020-10-20 09:39 | Emergency (ER) | payer SELFPAY ==
[~2020-10-20] VITALS: Ht 167.6 cm; Wt 112.0 kg
[~2020-10-20 09:39] MED LIST changes: +MELO15TA23 PO
[2020-10-20] MEDS ORDERED: ONDANSETRON PF 4 MG/2 ML VIAL. IVP ONE (10:30)
[2020-10-20] MEDS ORDERED: IV NORMAL SALINE 1,000ML 1,000 ML IV ONE (10:30)
[2020-10-20] MEDS ORDERED: MECLIZINE 12.5 MG TABLET. PO ONE (10:30)
[2020-10-20 10:50] LABS: BASO % 1 % (0-3); EOS % 0 % (0-3); HEMATOCRIT 37.9 % (36.0-47.0); HEMOGLOBIN 12.5 g/dL (12.0-15.5); LYMPH # 1.8 x10^3/uL (1.0-4.8); LYMPH % 37 % (24-48); MEAN CORPUSCULAR HEMOGLOBIN 30 pg (25-35); MEAN CORPUSCULAR HGB CONC 33 g/dL (31-37); MEAN CORPUSCULAR VOLUME 90 fL (79-100); MONO # 0.6 x10^3/uL (0.0-1.1); MONO % 13 % (0-9); NEUT # 2.4 x10^3uL (1.8-7.7); NEUT % 49 % (31-73); PLATELET COUNT 174 x10^3/uL (140-400); RED BLOOD COUNT 4.19 x10^6/uL (3.50-5.40); WHITE BLOOD COUNT 4.8 x10^3/uL (4.0-11.0)
--- NOTE | 2020-10-20 10:50 | PHYS DOC ---
Past History Past Medical History: Anxiety, Depression, High Cholesterol, Kidney Stones, Migraines, Other Additional Past Medical Histor: "Pre Diabetic" Past Surgical History: Appendectomy, , Hysterectomy, Oophorectomy, Tubal ligation Additional Past Surgical Histo: Back surgery of L4-L5 and S1 Alcohol Use: Rarely General Adult EDM: Chief Complaint: DIZZY/LIGHT HEADED HPI: HPI: Patient is a 40-year-old female being seen in the ER today for multiple complaints. Patient is reporting lightheadedness and a occipital intermittent headache has been going on for "years". She reports that it feels like she is spinning. She wanted to be seen in the ER today because she reports that her lightheadedness has been getting worse. She is reporting nausea, photophobia, intermittent tinnitus. She has a history of migraines. She states that this does not feel like a migraine. She denies vomiting, photophobia, blurry vision, chest pain, thunderclap headache, history of vertigo, head injury. Patient is also complaining of right anterior knee pain. She reports that the pain has been going on for a week. She reports her knee is giving out on her 2 times. She denies any injury. She is able to bear weight and ambulate. Review of Systems: Review of Systems: 14 body systems of the review of systems have been reviewed. See HPI for pertinent positive and negative responses, otherwise all other systems are negative, nonpertinent or noncontributory Current Medications: Current Meds: Current Medications Medications (Trade) Dose Ordered Sig/Lizzie Start Time Stop Time Status Last Admin Dose Admin Meclizine HCl (Antivert) 25 mg 1X ONCE 10/20/20 10:30 10/20/20 10:42 DC Ondansetron HCl (Zofran) 4 mg 1X ONCE 10/20/20 10:30 10/20/20 10:42 DC Sodium Chloride 1,000 ml @ 1,000 mls/hr 1X ONCE 10/20/20 10:30 10/20/20 11:29 Allergies: Allergies: Allergies Coded Allergies Type Severity Reaction Last Updated Verified No Known Drug Allergies 06/19/20 No Physical Exam: PE: Constitutional: Well developed, well nourished, no acute distress, non-toxic appearance. [] HENT: Normocephalic, atraumatic, bilateral external ears normal, oropharynx moist, no oral exudates, nose normal. [] Eyes: PERRLA, EOMI, 4 mm bilaterally, conjunctiva normal, no discharge. [] Neck: Normal range of motion, no tenderness, supple, no stridor. [] Cardiovascular:Heart rate regular rhythm, no murmur [] Lungs & Thorax: Bilateral breath sounds clear to auscultation [] Abdomen: Bowel sounds normal, soft, no tenderness, no masses, no pulsatile masses, no active vomiting. [] Skin: Warm, dry, no erythema, no rash. [] Back: Normal range of motion Extremities: No tenderness, no cyanosis, no clubbing, ROM intact, no edema. Right knee: Pain with palpation to anterior aspect of knee, no swelling, no obvious deformity, range of motion intact, neuro intact. [] Neurologic: Alert and oriented X 3, normal motor function, normal sensory function, no focal deficits noted. [] Psychologic: Affect normal, judgement normal, mood normal. [] Current Patient Data: Labs: Laboratory Tests Test 10/20/20 10:35 10/20/20 11:01 White Blood Count 4.8 x10^3/uL Red Blood Count 4.19 x10^6/uL Hemoglobin 12.5 g/dL Hematocrit 37.9 % Mean Corpuscular Volume 90 fL Mean Corpuscular Hemoglobin 30 pg Mean Corpuscular Hemoglobin Concent 33 g/dL Red Cell Distribution Width 15.0 % Platelet Count 174 x10^3/uL Neutrophils (%) (Auto) 49 % Lymphocytes (%) (Auto) 37 % Monocytes (%) (Auto) 13 % Eosinophils (%) (Auto) 0 % Basophils (%) (Auto) 1 % Neutrophils # (Auto) 2.4 x10^3uL Lymphocytes # (Auto) 1.8 x10^3/uL Monocytes # (Auto) 0.6 x10^3/uL Eosinophils # (Auto) 0.0 x10^3/uL Basophils # (Auto) 0.0 x10^3/uL Sodium Level 144 mmol/L Potassium Level 3.5 mmol/L Chloride Level 108 mmol/L Carbon Dioxide Level 29 mmol/L Anion Gap 7 Blood Urea Nitrogen 10 mg/dL Creatinine 0.9 mg/dL Estimated GFR (Cockcroft-Gault) 69.3 BUN/Creatinine Ratio 11 Glucose Level 101 mg/dL Calcium Level 8.5 mg/dL Total Bilirubin 0.2 mg/dL Aspartate Amino Transf (AST/SGOT) 23 U/L Alanine Aminotransferase (ALT/SGPT) 35 U/L Alkaline Phosphatase 83 U/L Troponin I Quantitative < 0.017 ng/mL Total Protein 6.6 g/dL Albumin 3.7 g/dL Albumin/Globulin Ratio 1.3 Urine Collection Type Unknown Urine Color Yellow Urine Clarity Clear Urine pH 5.5 Urine Specific [place] 1.015 Urine Protein Neg Urine Glucose (UA) Neg mg/dL Urine Ketones (Stick) Neg mg/dL Urine Blood Mod Urine Nitrite Neg Urine Bilirubin Neg Urine Urobilinogen Dipstick 0.2 mg/dL Urine Leukocyte Esterase Small Urine RBC 3-5 /HPF Urine WBC 5-10 /HPF Urine Squamous Epithelial Cells Occ /LPF Urine Bacteria Few /HPF Current Medications Medications (Trade) Dose Ordered Sig/Lizzie Route PRN Reason Start Time Stop Time Status Last Admin Dose Admin Sodium Chloride 1,000 ml @ 1,000 mls/hr 1X ONCE IV 10/20/20 10:30 10/20/20 11:29 DC 10/20/20 11:09 Ondansetron HCl (Zofran) 4 mg 1X ONCE IVP 10/20/20 10:30 10/20/20 10:42 DC 10/20/20 11:09 Meclizine HCl (Antivert) 25 mg 1X ONCE PO 10/20/20 10:30 10/20/20 10:42 DC 10/20/20 11:09 Vital Signs: Vital Signs Date Time Temp Pulse Resp B/P (MAP) Pulse Ox O2 Delivery O2 Flow Rate FiO2 10/20/20 09:52 98.5 89 16 130/84 97 Room Air EKG: EKG: EKG performed by ER staff at 1010 shows sinus rhythm, no STEMI as read by Dr. Garrido at 1022. Radiology/Procedures: Radiology/Procedures: PROCEDURE: KNEE RIGHT 3V 3 views right knee 10/20/2020 10:39 AM Indication: Reason: knee pain Comparison: Right radiographs February 02, 2020 Findings: There is no acute fracture or dislocation. Articular surfaces are uninterupted and smooth. Mild tricompartmental osteophytosis is noted, similar to comparison study. Soft tissues are unremarkable. Impression: No evidence of acute osseous abnormality. Electronically signed by: Drew Bourne MD (10/20/2020 11:16 AM) [id number] DICTATED AND SIGNED BY: DREW BORUNE MD DATE: 10/20/20 1104 CC: PEDRO OROPEZA APRN; PCP,NO ~MTH0 0 PROCEDURE: CT HEAD WO CONTRAST INDICATION: Reason: dizziness, near syncope / Spl. Instructions: / History: COMPARISON: None. TECHNIQUE: Axial CT images obtained through the head without intravenous contrast. One or more of the following individualized dose reduction techniques were utilized for this examination: 1. Automated exposure control; 2. Adjustment of the mA and/or kV according to patient size; 3. Use of iterative reconstruction technique. FINDINGS: No intracranial hemorrhage. No significant midline shift. Ventricles and sulci are unremarkable. No acute osseous abnormality. IMPRESSION: * No acute intracranial hemorrhage. Electronically signed by: Kimo Fisher MD (10/20/2020 10:54 AM) [id number] DICTATED AND SIGNED BY: KIMO FISHER MD DATE: 10/20/20 1050 CC: PEDRO OROPEZA APRN; PCP,NO ~MTH0 0 [] Heart Score: C/O Chest Pain: No Risk Factors: Risk Factors: DM, Current or recent (<one month) smoker, HTN, HLP, family history of CAD, obesity. Risk Scores: Score 0 - 3: 2.5% MACE over next 6 weeks - Discharge Home Score 4 - 6: 20.3% MACE over next 6 weeks - Admit for Clinical Observation Score 7 - 10: 72.7% MACE over next 6 weeks - Early Invasive Strategies Course & Med Decision Making: Course & Med Decision Making Pertinent Labs and Imaging studies reviewed. (See chart for details) Patient is a 40-year-old female being seen in the ER for lightheadedness and pain in the back of her head as well as right knee pain. Work-up in the ER consisted of blood work, urinalysis, CT scan of head, and x-ray of right knee. Blood work unremarkable, CT scan of head unremarkable, knee x-ray unremarkable. Urinalysis positive for urinary tract infection. Patient treated in the ER with an antibiotic and discharged home with antibiotics. Patient was treated in the ER with fluids and Antivert. Upon reassessment, patient was sleeping in the ER cot and she reports that her lightheadedness has resolved. She discharged home with Antivert prescription. I discussed with patient all findings and diagnostic testing as well as the need to follow-up with PCP for further evaluation and treatment or return to the ER if any new or worsening symptoms. Strict return precautions were also discussed at length. Patient voiced understanding and agreement with the plan. Patient is hemodynamically stable at the time of disposition. Dragon Disclaimer: Dragon Disclaimer: This electronic medical record was generated, in whole or in part, using a voice recognition dictation system. Departure Departure: Impression: Primary Impression: Urinary tract infection Qualified Codes: N30.01 - Acute cystitis with hematuria Disposition: HOME / SELF CARE / HOMELESS Condition: GOOD Referrals: PCP,NO (PCP) Patient Instructions: Urinary Tract Infection, Vertigo Additional Instructions: You were seen in the ER today for lightheadedness, head pain, and right knee pain. Your physical exam was reassuring. Your work-up in the ER was negative for any acute findings other than a UTI. You were given your first dose of an antibiotic in the ER. You were discharged home with an antibiotic. Please start and finish this completely. You were treated in the ER with meclizine for your lightheadedness and you reported feeling improvement in your symptoms following. You are being discharged home with a prescription for Antivert that you can take as needed for lightheadedness. You need to follow-up with your primary care provider tomorrow regarding your ER visit. Please return to the ER if you develop syncope, worsening of your headache, vision changes, uncontrollable nausea or vomiting, inability to ambulate, pain with urination, hematuria, abdominal pain or chest pain. EMERGENCY DEPARTMENT GENERAL DISCHARGE INSTRUCTIONS Thank you for coming to [facility] (ED) today and trusting us with you care. We trust that you had a positivie experience in our Emergency Department. If you wish to speak to the department management, you may call the director at [phone]. YOUR FOLLOW UP INSTRUCTIONS ARE FOLLOWS: 1. Do you have a private Doctor? If you do not have a private doctor, please ask for a resource list of physicians or clinics that may be able to assist you with follow up care. 2. The Emergency Physician has interpreted your x-rays. The X-Ray specialist will also review them. If there is a change in the findings, you will be notified in 48 hours when at all possible. 3. A lab test or culture has been done, your results will be reviewed and you will be notified if you need a change in treatment. ADDITIONAL INSTRUCTIONS AND INFORMATION: 1. Your care today has been supervised by a physician who is specially trained in emergency care. Many problems require more than one evaluation for a complete diagnosis and treatment. We recommend that you schedule your follow up appointment as recommended to ensure complete treatment of you illness or injury. If you are unable to obtain follow up care and continue to have a problem, or if your condition worsens, we recommend that you return to the ED. 2. We are not able to safely determine your condition over the phone nor are we able to give sound medical advice over the phone. For these safety reasons, if you call for medical advice we will ask you to come to the ED for further evaluation. 3. If you have any questions regarding these discharge instructions please call the ED at [phone]. SAFETY INFORMATION: In the interest of safety, wellness, and injury prevention; we encourage you to wear your sealbelt, if you smoke; quite smoking, and we encourage family to use a protective helmet for bicycling and other sporting events that present an increased risk for head injury. IF YOUR SYMPTOMS WORSEN OR NEW SYMPTOMS DEVELOP, OR YOU HAVE CONCERNS ABOUT YOUR CONDITION; OR IF YOUR CONDITION WORSENS WHILE YOU ARE WAITING FOR YOUR FOLLOW UP APPOINTMENT; EITHER CONTACT YOUR PRIMARY CARE DOCTOR, THE PHYSICIAN WHOSE NAME AND NUMBER YOU WERE GIVEN, OR RETURN TO THE ED IMMEDIATELY. Scripts Meclizine Hcl (MECLIZINE HCL) 25 Mg Tablet 1 TAB PO PRN TID for vertigo for 7 Days, #21 TAB 0 Refills Prov: PEDRO OROPEZA APRN 10/20/20 Cephalexin (CEPHALEXIN) 500 Mg Tablet 1 TAB PO BID for uti for 7 Days, #13 TAB 0 Refills Prov: PEDRO OROPEZA APRN 10/20/20 PEDRO OROPEZA APRN Oct 20, 2020 10:49
--- NOTE | 2020-10-20 10:51 | EKG ---
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
--- NOTE | 2020-10-20 10:56 | RAD ---
INDICATION: Reason: dizziness, near syncope / Spl. Instructions: / History: COMPARISON: None. TECHNIQUE: Axial CT images obtained through the head without intravenous contrast. One or more of the following individualized dose reduction techniques were utilized for this examinat ion: 1. Automated exposure control; 2. Adjustment of the mA and/or kV according to patient size; 3 . Use of iterative reconstruction technique. FINDINGS: No intracranial hemorrhage. No significant midline shift. Ventricles and sulci are unremarkable. No acute osseous abnormality. IMPRESSION: * No acute intracranial hemorrhage. Electronically signed by: Rizwan Deluca MD (10/20/2020 10:54 AM) [id number]
[2020-10-20 11:01] LABS: CALCIUM 8.5 mg/dL (8.5-10.1); CREATININE 0.9 mg/dL (0.6-1.0); GFR 69.3; POTASSIUM 3.5 mmol/L (3.5-5.1)
[2020-10-20 11:07] LABS: ALBUMIN 3.7 g/dL (3.4-5.0); ALBUMIN/GLOBULIN RATIO 1.3 (1.0-1.7); TOTAL BILIRUBIN 0.2 mg/dL (0.2-1.0); TOTAL PROTEIN 6.6 g/dL (6.4-8.2)
--- NOTE | 2020-10-20 11:18 | RAD ---
3 views right knee 10/20/2020 10:39 AM Indication: Reason: knee pain Comparison: Right radiographs February 02, 2020 Findings: There is no acute fracture or dislocation. Articular surfaces are uninterupted and smooth. Mild tricompartmental osteophytosis is noted, similar to comparison study. Soft tissues are unremarka ble. Impression: No evidence of acute osseous abnormality. Electronically signed by: Drew Bourne MD (10/20/2020 11:16 AM) [id number]
[2020-10-20 12:31] LABS: BILIRUBIN,URINE NEG (NEG); CLARITY,URINE CLEAR; COLOR,URINE YELLOW; GLUCOSE,URINE NEG (NEG); NITRITE,URINE NEG (NEG); UROBILINOGEN,URINE 0.2 mg/dL (0.2 mg/dL)
[2020-10-20 12:32] LABS: BACTERIA,URINE FEW /HPF (0-FEW); SQUAMOUS EPITHELIAL CELL,UR OCC /LPF
[2020-10-20 12:40] VITALS: BP 127/78
[2020-10-20] MEDS ORDERED: CEPHALEXIN 250 MG CAPSULE PO ONE (12:45)
[2020-10-20] MEDS ORDERED: MECL-75 PO (12:52)
[2020-10-20] MEDS ORDERED: CEPH500T PO (12:52)
== END 2020-10-20 13:09 | disposition home or self-care (01) ==
LOC: ER 09:39
DX: N30.01 Acute cystitis with hematuria (principal); G43.909 Migraine, unspecified, not intractable, without status migrainosus; F41.9 Anxiety disorder, unspecified; F32.9 Major depressive disorder, single episode, unspecified; E78.00 Pure hypercholesterolemia, unspecified; Z87.442 Personal history of urinary calculi
CPT/HCPCS: 36415; 70450; 73562; 80053; 81001; 84484; 85025; 87086; 93005; 96361; 96374; 99285; J2405; J7030

== ENCOUNTER 2020-10-27 18:44 | Emergency (ER) | payer SELFPAY ==
[~2020-10-27] VITALS: Ht 167.6 cm; Wt 112.0 kg
[~2020-10-27 18:44] MED LIST changes: +CEPH500T PO; +MECL-75 PO
[2020-10-27] MEDS ORDERED: HYDROcodone/APAP 5/325MG 1 TAB TABLET PO ONE (20:00)
--- NOTE | 2020-10-27 20:00 | PHYS DOC ---
Past History Past Medical History: Anxiety, Depression, High Cholesterol, Kidney Stones, Migraines, Other Additional Past Medical Histor: "Pre Diabetic" Past Surgical History: Appendectomy, , Hysterectomy, Oophorectomy, Tubal ligation Additional Past Surgical Histo: Back surgery of L4-L5 and S1 Alcohol Use: Rarely General Adult EDM: Chief Complaint: KNEE INJURY HPI: HPI: Patient is a 40-year-old female who presents to the ER with anterior right knee pain. Patient reports that she has a history of chronic right knee pain from a previous injury. She states that she was walking down the stairs at work when it popped around 6:00 this evening. Patient was able to bear weight and ambulate following and was able to drive herself home. Patient rates her pain 10 out of 10. No treatment prior to arrival. Patient was seen in this ER last week and had x-ray performed of the right knee that was negative for any acute findings. I discussed the exposure of radiation with patient she would like to have another x-ray of her right knee performed. Review of Systems: Review of Systems: 14 body systems of the review of systems have been reviewed. See HPI for p ertinent positive and negative responses, otherwise all other systems are negative, nonpertinent or noncontributory Allergies: Allergies: Allergies Coded Allergies Type Severity Reaction Last Updated Verified No Known Drug Allergies 06/19/20 No Physical Exam: PE: Constitutional: Well developed, well nourished, no acute distress, non-toxic appearance. [] HENT: Normocephalic, atraumatic Eyes: PERRL, EOMI, conjunctiva normal, no discharge. [] Neck: Normal range of motion, no stridor Cardiovascular: Normal peripheral perfusion Lungs & Thorax: Normal work of breathing, no tachypnea Skin: Warm, dry, no erythema, no rash. [] Back: Normal range of motion Extremities: No tenderness, no cyanosis, no clubbing, ROM intact, no edema. Right knee: No swelling, obvious deformity, wounds, pain with palpation of anterior right knee. Neuro intact, range of motion limited due to pain. Neurologic: Alert and oriented X 3, normal motor function, normal sensory function, no focal deficits noted. [] Psychologic: Affect normal, judgement normal, mood normal. [] EKG: EKG: [] Radiology/Procedures: Radiology/Procedures: [] Heart Score: C/O Chest Pain: No Risk Factors: Risk Factors: DM, Current or recent (<one month) smoker, HTN, HLP, family history of CAD, obesity. Risk Scores: Score 0 - 3: 2.5% MACE over next 6 weeks - Discharge Home Score 4 - 6: 20.3% MACE over next 6 weeks - Admit for Clinical Observation Score 7 - 10: 72.7% MACE over next 6 weeks - Early Invasive Strategies Course & Med Decision Making: Course & Med Decision Making Pertinent Labs and Imaging studies reviewed. (See chart for details) Patient is a 40-year-old female who presents to the ER with right knee pain after she stepped down the stairs and it popped. Patient is refusing x-ray. Patient states that she wants an MRI of her knee. I educated patient that we do not perform MRIs emergently in the ER for knee pain. Patient treated for pain in the ER. Patient is knee placed in Garfield wrap and crutches. Patient advised to use the rice protocol to help with her symptoms and follow-up with her primary care provider or orthopedic physician. I discussed with patient all findings and diagnostic testing as well as the need to follow-up with PCP for further evaluation and treatment or return to the ER if any new or worsening symptoms. Strict return precautions were also discussed at length. Patient voiced understanding and agreement with the plan. Patient is hemodynamically stable at the time of disposition. Lencho Disclaimer: Lencho Disclaimer: This electronic medical record was generated, in whole or in part, using a voice recognition dictation system. Departure Departure: Impression: Primary Impression: Knee pain Qualified Codes: M25.561 - Pain in right knee; G89.29 - Other chronic pain Disposition: HOME / SELF CARE / HOMELESS Condition: GOOD Referrals: PCP,NO (PCP) Patient Instructions: Crutch Use, RICE - Routine Care for Injuries Additional Instructions: Were seen in the ER for right knee pain. You refused an x-ray of your knee. You had a negative x-ray of your knee last week. It is likely that you have a ligamentous injury. Your knee was placed in an Garfield wrap and you were given crutches. Your pain was also treated in the ER. Your symptoms may be improved by something called the rice protocol. This is rest, ice, compression, elevation. Please follow-up when doing intense exercises that may make the pain worse. Sometimes gentle stretching can provide relief, but be careful to injury. It is important to perform gentle range of motion exercises to prevent stiff joints and chronic pain. Use ice packs over the affected areas to help decrease your pain. For the first 24 hours you can apply ice 20 minutes on 20 minutes off for 4 times per day. Sometimes compression such as the use of an Garfield wrap can help with the swelling. You may also elevate the affected area to help with the swelling. You can take Tylenol/ibuprofen for pain at home. You need to follow-up with your primary care provider or an orthopedic doctor. Please return to the ER if you develop decreased sensation in your extremity, inability to bear weight or ambulate or any new concerns. EMERGENCY DEPARTMENT GENERAL DISCHARGE INSTRUCTIONS Thank you for coming to [facility] ([facility]) today and trusting us with you care. We trust that you had a positivie experience in our Emergency Department. If you wish to speak to the department management, you may call the director at [phone]. YOUR FOLLOW UP INSTRUCTIONS ARE FOLLOWS: 1. Do you have a private Doctor? If you do not have a private doctor, please ask for a resource list of physicians or clinics that may be able to assist you with follow up care. 2. The Emergency Physician has interpreted your x-rays. The X-Ray specialist will also review them. If there is a change in the findings, you will be notified in 48 hours when at all possible. 3. A lab test or culture has been done, your results will be reviewed and you will be notified if you need a change in treatment. ADDITIONAL INSTRUCTIONS AND INFORMATION: 1. Your care today has been supervised by a physician who is specially trained in emergency care. Many problems require more than one evaluation for a complete diagnosis and treatment. We recommend that you schedule your follow up appointment as recommended to ensure complete treatment of you illness or injury. If you are unable to obtain follow up care and continue to have a problem, or if your condition worsens, we recommend that you return to the ED. 2. We are not able to safely determine your condition over the phone nor are we able to give sound medical advice over the phone. For these safety reasons, if you call for medical advice we will ask you to come to the ED for further evaluation. 3. If you have any questions regarding these discharge instructions please call the ED at [phone]. SAFETY INFORMATION: In the interest of safety, wellness, and injury prevention; we encourage you to wear your sealbelt, if you smoke; quite smoking, and we encourage family to use a protective helmet for bicycling and other sporting events that present an increased risk for head injury. IF YOUR SYMPTOMS WORSEN OR NEW SYMPTOMS DEVELOP, OR YOU HAVE CONCERNS ABOUT YOUR CONDITION; OR IF YOUR CONDITION WORSENS WHILE YOU ARE WAITING FOR YOUR FOLLOW UP APPOINTMENT; EITHER CONTACT YOUR PRIMARY CARE DOCTOR, THE PHYSICIAN WHOSE NAME AND NUMBER YOU WERE GIVEN, OR RETURN TO THE ED IMMEDIATELY. PEDRO OROPEZA APRN Oct 27, 2020 20:00
[2020-10-27 20:49] VITALS: BP 139/77
== END 2020-10-27 20:49 | disposition home or self-care (01) ==
LOC: ER 18:44
DX: M25.561 Pain in right knee (principal); G89.29 Other chronic pain; E78.00 Pure hypercholesterolemia, unspecified; G43.909 Migraine, unspecified, not intractable, without status migrainosus; Z87.442 Personal history of urinary calculi
CPT/HCPCS: 99283; 99284

== ENCOUNTER 2020-11-30 15:49 | Emergency (ER) | payer SELFPAY ==
[~2020-11-30] VITALS: Ht 167.6 cm; Wt 112.0 kg
[2020-11-30 15:49] VITALS: BP 129/62
--- NOTE | 2020-11-30 16:11 | PHYS DOC ---
Past History Past Medical History: Anxiety, Depression, High Cholesterol, Kidney Stones, Migraines, Other Additional Past Medical Histor: "Pre Diabetic" (PEDRO OROPEZA APRN) Past Surgical History: Appendectomy, , Hysterectomy, Oophorectomy, Tubal ligation Additional Past Surgical Histo: Back surgery of L4-L5 and S1 (PEDRO OROPEZA APRN) Alcohol Use: Occasionally (PEDRO OROPEZA APRN) General Adult EDM: Chief Complaint: DIARRHEA HPI: HPI: Patient is a 40-year-old female who presents to the ER for diarrhea x4 days. Patient states that she is taking Pepto-Bismol without relief in her symptoms. Patient denies any recent travel, antibiotic use, nausea, vomiting, abdominal pain, fevers, blood in her stools, sick exposures. (PEDRO OROPEZA APRN) Review of Systems: Review of Systems: 14 body systems of the review of systems have been reviewed. See HPI for pertinent positive and negative responses, otherwise all other systems are negative, nonpertinent or noncontributory (PEDRO OROPEZA APRN) Allergies: Allergies: Allergies Coded Allergies Type Severity Reaction Last Updated Verified No Known Drug Allergies 06/19/20 No (PEDRO OROPEZA APRN) Physical Exam: PE: Constitutional: Well developed, well nourished, no acute distress, non-toxic appearance. [] HENT: Normocephalic, atraumatic, bilateral external ears normal, oropharynx moist, no oral exudates, nose normal. [] Eyes: PERRL, EOMI, conjunctiva normal, no discharge. [] Neck: Normal range of motion, no stridor Cardiovascular:Heart rate tachycardic rhythm, no murmur [] Lungs & Thorax: Bilateral breath sounds clear to auscultation [] Abdomen: Bowel sounds normal, soft, no tenderness, obese, no masses, no pulsatile masses. [] Skin: Warm, dry, no erythema, no rash. [] Back: Normal range of motion Extremities: No tenderness, no cyanosis, no clubbing, ROM intact, no edema. [] Neurologic: Alert and oriented X 3, normal motor function, normal sensory function, no focal deficits noted. [] Psychologic: Affect normal, judgement normal, mood normal. [] (PEDRO OROPEZA APRN) Current Patient Data: Labs: Laboratory Tests Test 11/30/20 16:29 White Blood Count 5.1 x10^3/uL Red Blood Count 4.44 x10^6/uL Hemoglobin 13.4 g/dL Hematocrit 40.0 % Mean Corpuscular Volume 90 fL Mean Corpuscular Hemoglobin 30 pg Mean Corpuscular Hemoglobin Concent 34 g/dL Red Cell Distribution Width 14.7 % Platelet Count 228 x10^3/uL Neutrophils (%) (Auto) 48 % Lymphocytes (%) (Auto) 42 % Monocytes (%) (Auto) 9 % Eosinophils (%) (Auto) 0 % Basophils (%) (Auto) 1 % Neutrophils # (Auto) 2.5 x10^3uL Lymphocytes # (Auto) 2.2 x10^3/uL Monocytes # (Auto) 0.5 x10^3/uL Eosinophils # (Auto) 0.0 x10^3/uL Basophils # (Auto) 0.0 x10^3/uL Sodium Level 140 mmol/L Potassium Level 3.6 mmol/L Chloride Level 102 mmol/L Carbon Dioxide Level 27 mmol/L Anion Gap 11 Blood Urea Nitrogen 12 mg/dL Creatinine 0.9 mg/dL Estimated GFR (Cockcroft-Gault) 69.3 BUN/Creatinine Ratio 13 Glucose Level 127 mg/dL Calcium Level 10.0 mg/dL Total Bilirubin 0.4 mg/dL Aspartate Amino Transf (AST/SGOT) 33 U/L Alanine Aminotransferase (ALT/SGPT) 53 U/L Alkaline Phosphatase 101 U/L Total Protein 7.7 g/dL Albumin 4.2 g/dL Albumin/Globulin Ratio 1.2 Current Medications Medications (Trade) Dose Ordered Sig/Lizzie Route PRN Reason Start Time Stop Time Status Last Admin Dose Admin Sodium Chloride 1,000 ml @ 1,000 mls/hr 1X ONCE IV 11/30/20 16:15 11/30/20 17:14 11/30/20 16:35 Loperamide HCl (Imodium) 4 mg 1X ONCE PO 11/30/20 16:15 11/30/20 16:16 DC 11/30/20 16:35 (PEDRO OROPEZA APRN) EKG: EKG: [] (PEDRO OROPEZA APRN) Radiology/Procedures: Radiology/Procedures: [] (PEDRO OROPEZA APRN) Heart Score: C/O Chest Pain: No Risk Factors: Risk Factors: DM, Current or recent (<one month) smoker, HTN, HLP, family history of CAD, obesity. Risk Scores: Score 0 - 3: 2.5% MACE over next 6 weeks - Discharge Home Score 4 - 6: 20.3% MACE over next 6 weeks - Admit for Clinical Observation Score 7 - 10: 72.7% MACE over next 6 weeks - Early Invasive Strategies (PEDRO OROPEZA APRN) Course & Med Decision Making: Course & Med Decision Making Pertinent Labs and Imaging studies reviewed. (See chart for details) [] Patient is a 40-year-old female who presents to the ER with a 4-day history of diarrhea. Patient was noted to be mildly tachycardic in the ER. Work-up included blood work and stool studies. Stool studies are sent out lab and she will be notified of those results when they become available. Patient was treated with a liter of fluids and Imodium. Work-up in the ER is unremarkable. Following the liter of fluids, patient's heart rate has returned to a regular rate. I discussed with patient all findings and diagnostic testing as well as the need to follow-up with PCP for further evaluation and treatment or return to the ER if any new or worsening symptoms. Strict return precautions were also discussed at length. Patient voiced understanding and agreement with the plan. Patient is hemodynamically stable at the time of disposition. (PEDRO OROPEZA APRN) Dragon Disclaimer: Dragon Disclaimer: This electronic medical record was generated, in whole or in part, using a voice recognition dictation system. (PEDRO OROPEZA APRN) Attending Co-Sign The patient was seen and interviewed as well as examined at the bedside. The chart was reviewed. The case was discussed. Agree with the plan of care. (BEVERLEY HUTCHINSON DO) Departure Departure: Impression: Primary Impression: Diarrhea Qualified Codes: R19.7 - Diarrhea, unspecified Disposition: HOME / SELF CARE / HOMELESS Condition: GOOD Referrals: PCP,NO (PCP) Patient Instructions: Diarrhea, Diet for Diarrhea, Adult Additional Instructions: You were seen in the ER today for diarrhea. Your lab work was unremarkable. It is likely that you may be dehydrated from all of the rounds of diarrhea, please increase your fluid intake. You are also given a liter of normal saline in the ER. You should take Imodium [id number] as directed to help with your diarrhea. You will be notified of your stool sample results when they become available. Please follow-up with your primary care provider tomorrow regarding your ER visit. Please return to the ER if you develop abdominal pain, intractable nausea or vomiting, high fevers refractory to treatment, blood in your stools or vomit, lightheadedness. EMERGENCY DEPARTMENT GENERAL DISCHARGE INSTRUCTIONS Thank you for coming to [facility] ([facility]) today and trusting us with you care. We trust that you had a positivie experience in our Emergency Department. If you wish to speak to the department management, you may call the director at [phone]. YOUR FOLLOW UP INSTRUCTIONS ARE FOLLOWS: 1. Do you have a private Doctor? If you do not have a private doctor, please ask for a resource list of physicians or clinics that may be able to assist you with follow up care. 2. The Emergency Physician has interpreted your x-rays. The X-Ray specialist will also review them. If there is a change in the findings, you will be notified in 48 hours when at all possible. 3. A lab test or culture has been done, your results will be reviewed and you will be notified if you need a change in treatment. ADDITIONAL INSTRUCTIONS AND INFORMATION: 1. Your care today has been supervised by a physician who is specially trained in emergency care. Many problems require more than one evaluation for a complete diagnosis and treatment. We recommend that you schedule your follow up appointment as recommended to ensure complete treatment of you illness or injury. If you are unable to obtain follow up care and continue to have a problem, or if your condition worsens, we recommend that you return to the ED. 2. We are not able to safely determine your condition over the phone nor are we able to give sound medical advice over the phone. For these safety reasons, if you call for medical advice we will ask you to come to the ED for further evaluation. 3. If you have any questions regarding these discharge instructions please call the ED at [phone]. SAFETY INFORMATION: In the interest of safety, wellness, and injury prevention; we encourage you to wear your sealbelt, if you smoke; quite smoking, and we encourage family to use a protective helmet for bicycling and other sporting events that present an increased risk for head injury. IF YOUR SYMPTOMS WORSEN OR NEW SYMPTOMS DEVELOP, OR YOU HAVE CONCERNS ABOUT YOUR CONDITION; OR IF YOUR CONDITION WORSENS WHILE YOU ARE WAITING FOR YOUR FOLLOW UP APPOINTMENT; EITHER CONTACT YOUR PRIMARY CARE DOCTOR, THE PHYSICIAN WHOSE NAME AND NUMBER YOU WERE GIVEN, OR RETURN TO THE ED IMMEDIATELY. PEDRO OROPEZA APRN Nov 30, 2020 16:11 BEVERLEY HUTCHINSON DO Nov 30, 2020 17:41
[2020-11-30] MEDS ORDERED: LOPERAMIDE 2 MG CAPSULE PO ONE (16:15)
[2020-11-30] MEDS ORDERED: IV NORMAL SALINE 1,000ML 1,000 ML IV ONE (16:15)
[2020-11-30 16:49] LABS: BASO % 1 % (0-3); EOS % 0 % (0-3); HEMOGLOBIN 13.4 g/dL (12.0-15.5); LYMPH # 2.2 x10^3/uL (1.0-4.8); LYMPH % 42 % (24-48); MEAN CORPUSCULAR HEMOGLOBIN 30 pg (25-35); MEAN CORPUSCULAR HGB CONC 34 g/dL (31-37); MEAN CORPUSCULAR VOLUME 90 fL (79-100); MONO # 0.5 x10^3/uL (0.0-1.1); MONO % 9 % (0-9); NEUT # 2.5 x10^3uL (1.8-7.7); NEUT % 48 % (31-73); PLATELET COUNT 228 x10^3/uL (140-400); RED BLOOD COUNT 4.44 x10^6/uL (3.50-5.40); RED CELL DISTRIBUTION WIDTH 14.7 % (11.5-14.5); WHITE BLOOD COUNT 5.1 x10^3/uL (4.0-11.0)
[2020-11-30 16:54] LABS: CREATININE 0.9 mg/dL (0.6-1.0); GFR 69.3; POTASSIUM 3.6 mmol/L (3.5-5.1)
[2020-11-30 16:59] LABS: ALBUMIN 4.2 g/dL (3.4-5.0); ALBUMIN/GLOBULIN RATIO 1.2 (1.0-1.7); TOTAL BILIRUBIN 0.4 mg/dL (0.2-1.0); TOTAL PROTEIN 7.7 g/dL (6.4-8.2)
== END 2020-11-30 17:31 | disposition home or self-care (01) ==
LOC: ER 15:49
DX: R19.7 Diarrhea, unspecified (principal); E78.00 Pure hypercholesterolemia, unspecified; G43.909 Migraine, unspecified, not intractable, without status migrainosus; Z87.442 Personal history of urinary calculi; Z90.89 Acquired absence of other organs; Z98.890 Other specified postprocedural states; Z90.710 Acquired absence of both cervix and uterus; Z98.51 Tubal ligation status; Z90.722 Acquired absence of ovaries, bilateral
CPT/HCPCS: 80053; 85025; 87177; 87209; 87493; 87505; 96360; 99283; J7030

== ENCOUNTER 2021-01-02 15:21 | Emergency (ER) | payer SELFPAY ==
[~2021-01-02] VITALS: Ht 167.6 cm; Wt 110.5 kg
[~2021-01-02 15:21] MED LIST changes: -CYCL-331 PO; +CYCL10TA19 PO
[2021-01-02 15:25] VITALS: BP 115/74
[2021-01-02] MEDS ORDERED: HYDROcodone/APAP 5/325MG 1 TAB TABLET PO ONE (15:45)
--- NOTE | 2021-01-02 15:57 | RAD ---
EXAM: Right knee, 4 views. HISTORY: Pain. Fall. COMPARISON: 10/20/2020. FINDINGS: 4 views of the right knee are obtained. There is mild tricompartmental spurring. There is n o fracture, dislocation or subluxation. There is a small to moderate joint effusion. IMPRESSION: 1. Mild tricompartment osteoarthritis of the right knee. 2. Small to moderate right knee effusion. Electronically signed by: Adenike Tariq MD (01/02/2021 3:54 PM) [id number]
--- NOTE | 2021-01-02 16:12 | PHYS DOC ---
Past History Past Medical History: Anxiety, Depression, High Cholesterol, Kidney Stones, Migraines, Other Additional Past Medical Histor: "Pre Diabetic" (RAFI BERRY APRN) Past Surgical History: Appendectomy, , Hysterectomy, Oophorectomy, Tubal ligation Additional Past Surgical Histo: Back surgery of L4-L5 and S1 (RAFI BERRY APRN) Alcohol Use: Occasionally (RAFI BERRY APRN) Adult General Chief Complaint Chief Complaint: KNEE INJURY HPI HPI Patient is a 40-year-old female comes to the emergency department today concerning right knee pain after a fall 4 days ago. Patient reports she stumbled while walking and landed on her right knee. Reports a 7 out of 10 pain after taking 800 mg of Motrin an hour prior to arrival to the emergency department, denies numbness or tingling to her leg on the right, denies other injury. (RAFI BERRY APRN) Review of Systems Review of Systems 14 body systems of review of systems have been reviewed. See HPI for pertinent positives and negative responses, otherwise all other systems are negative, nonpertinent or noncontributory. Constitutional: Negative except as outlined in HPI above. Skin: Negative except as outlined in HPI above. Eyes: Negative except as outlined in HPI above. HENT: Negative except as outlined in HPI above. Respiratory: Negative except as outlined in HPI above. Cardiovascular: Negative except as outlined in HPI above. GI: Negative except as outlined in HPI above. : Negative except as outlined in HPI above. Musculoskeletal: Negative except as outlined in HPI above. Integument: Negative except as outlined in HPI above. Neurologic: Negative except as outlined in HPI above. Endocrine: Negative except as outlined in HPI above. Lymphatic: Negative except as outlined in HPI above. Psychiatric: Negative except as outlined in HPI above. (RAFI BERRY APRN) Current Medications Current Medications Current Medications Medications (Trade) Dose Ordered Sig/Lizzie Start Time Stop Time Status Last Admin Dose Admin Acetaminophen/ Hydrocodone Bitart (Lortab 5/325) 2 tab 1X ONCE 01/02/21 15:45 01/02/21 15:50 DC 01/02/21 15:58 2 TAB (RAFI BERRY APRN) Allergies Allergies Allergies Coded Allergies Type Severity Reaction Last Updated Verified No Known Drug Allergies 01/02/21 No (RAFI BERRY APRN) Physical Exam Physical Exam Constitutional: Well developed, well nourished, no acute distress, non-toxic appearance. 40-year-old female in no apparent distress. HENT: Normocephalic, atraumatic. Eyes: Conjunctiva normal, no discharge. Neck: Normal range of motion, no stridor. Cardiovascular: No cyanosis appreciated, distal cap refill less than 2 seconds. Lungs & Thorax: Patient is in no respiratory distress, no audible adventitious lung sounds appreciated. Abdomen: Nontender, no abnormalities noted. Skin: Warm, dry, no erythema, no rash. Back: No tenderness, no deformities. Extremities: No tenderness, no cyanosis, no clubbing, ROM intact, no edema. Except for right knee, pain to lateral aspect, no swelling appreciated, full passive range of motion, negative knee stability tests. Distal cap refill less than 2 seconds, 2+ dorsalis pedis/posterior tibial pulse. Neurologic: Alert and oriented X 3, normal motor function, normal sensory function, no focal deficits noted. Psychologic: Affect normal, judgement normal, mood normal. (RAFI BERRY APRN) Current Patient Data Vital Signs Vital Signs Date Time Temp Pulse Resp B/P (MAP) Pulse Ox O2 Delivery O2 Flow Rate FiO2 01/02/21 15:58 18 100 01/02/21 15:25 97.7 86 115/74 (88) Room Air (RAFI BERRY APRN) EKG EKG [] (RAFI BERRY APRN) Radiology/Procedures Radiology/Procedures PATIENT: LIZ DOMINGUEZ RACCOUNT: [id number] : 1980 LOCATION: ER AGE: 40 SEX: F EXAM STATUS: REG ER ORD. PHYSICIAN: RAFI BERRY APRN REASON: Right knee pain after fall from 4 days ago PROCEDURE: KNEE RIGHT 4V EXAM: Right knee, 4 views. HISTORY: Pain. Fall. COMPARISON: 10/20/2020. FINDINGS: 4 views of the right knee are obtained. There is mild tricompartmental spurring. There is no fracture, dislocation or subluxation. There is a small to moderate joint effusion. IMPRESSION: 1. Mild tricompartment osteoarthritis of the right knee. 2. Small to moderate right knee effusion. Electronically signed by: Adenike Cid MD (01/02/2021 3:54 PM) [id number] DICTATED AND SIGNED BY: ADENIKE CID MD DATE: 01/02/21 1554 CC: RAFI BERRY APRN; PCP,UNKNOWN ~MTH0 0 (RAFI BERRY APRN) Heart Score C/O Chest Pain: No Risk Factors: Risk Factors: DM, Current or recent (<one month) smoker, HTN, HLP, family history of CAD, obesity. Risk Scores: Risk Factors: DM, Current or recent (<one month) smoker, HTN, HLP, family history of CAD, obesity. (RAFI BERRY APRN) Course & Med Decision Making Course & Med Decision Making Pertinent Labs and Imaging studies reviewed. (See chart for details) 40-year-old female, vital signs reviewed, presents emergency department concerning right knee pain after fall 4 days ago. Will order x-ray, pain medication, ice pack. X-ray concerning for small effusion, will recommend to patient strict follow-up with orthopedic surgeon, Garfield wrap, knee immobilizer, [id number] NSAIDs for pain management. RICE therapy. Discussed findings with patient, reviewed home care, strict follow-up with orthopedic surgeon, return ER precautions or concerns, patient is amenable to ED discharge planning. Discussed with the patient all findings and diagnostic testing as well as the need to follow-up with their primary care provider for further evaluation and treatment or return to the ED if any new or worsening symptoms. Strict return precautions were also discussed at length, the patient voiced understanding and agreement with the discharge planning. The patient was nontoxic in appearance, in no apparent distress, and hemodynamically stable at the time of disposition. (RAFI BERRY APRN) Dragon Disclaimer Dragon Disclaimer This electronic medical record was generated, in whole or in part, using a voice recognition dictation system. (RAFI BERRY APRN) Attending Co-Sign The patient was seen and interviewed as well as examined at the bedside. The chart was reviewed. The case was discussed. Agree with the plan of care. (BEVERLEY HUTCHINSON DO) Departure Departure: Impression: Primary Impression: Knee pain Additional Impression: Knee effusion, right Disposition: 01 HOME / SELF CARE / HOMELESS Condition: GOOD Referrals: PCP,UNKNOWN (PCP) Additional Instructions: You were seen today in the emergency department for right knee pain. Your x-ray showed a small effusion within the knee joint. There were no broken bones. An Garfield wrap and knee immobilizer was placed today in the emergency department. As we discussed please follow-up with an orthopedic surgeon soon, you may use any orthopedic surgeon of your choice, I have recommended the orthopedic group at [facility] located at [address] [place] [address] [address] [place] [address], their telephone number is area code [phone]. Please call first thing this Monday morning for an appointment to be seen this week. You may use [id number] Tylenol or Motrin for ongoing aches and pains of your knee. Please consider using RICE therapy rest, ice, compression, elevation to help assist with pain control and discomfort. Thank you for visiting our Emergency Department. It was a pleasure taking care of you today in the emergency department and we appreciate you trusting us with your care. If any additional problems come up don't hesitate to return to visit us. Please follow up with your primary care provider so they can plan additional care if needed and know about the problem that you had. If symptoms worsen come back to the Emergency Department. Any concerning symptoms that start such as chest pain, shortness of air, weakness or numbness on one side of the body, running high fevers or any other concerning symptoms return to the ER. EMERGENCY DEPARTMENT GENERAL DISCHARGE INSTRUCTIONS Thank you for coming to [facility] (ED) today and trusting us with you care. We trust that you had a positivie experience in our Emergency Department. If you wish to speak to the department management, you may call the director at [phone]. YOUR FOLLOW UP INSTRUCTIONS ARE FOLLOWS: 1. Do you have a private Doctor? If you do not have a private doctor, please ask for a resource list of physicians or clinics that may be able to assist you with follow up care. 2. The Emergency Physician has interpreted your x-rays. The X-Ray specialist will also review them. If there is a change in the findings, you will be notified in 48 hours when at all possible. 3. A lab test or culture has been done, your results will be reviewed and you will be notified if you need a change in treatment. ADDITIONAL INSTRUCTIONS AND INFORMATION: 1. Your care today has been supervised by a physician who is specially trained in emergency care. Many problems require more than one evaluation for a complete diagnosis and treatment. We recommend that you schedule your follow up appointment as recommended to ensure complete treatment of you illness or injury. If you are unable to obtain follow up care and continue to have a problem, or if your condition worsens, we recommend that you return to the ED. 2. We are not able to safely determine your condition over the phone nor are we able to give sound medical advice over the phone. For these safety reasons, if you call for medical advice we will ask you to come to the ED for further evaluation. 3. If you have any questions regarding these discharge instructions please call the ED at [phone]. SAFETY INFORMATION: In the interest of safety, wellness, and injury prevention; we encourage you to wear your sealbelt, if you smoke; quite smoking, and we encourage family to use a protective helmet for bicycling and other sporting events that present an increased risk for head injury. IF YOUR SYMPTOMS WORSEN OR NEW SYMPTOMS DEVELOP, OR YOU HAVE CONCERNS ABOUT YOUR CONDITION; OR IF YOUR CONDITION WORSENS WHILE YOU ARE WAITING FOR YOUR FOLLOW UP APPOINTMENT; EITHER CONTACT YOUR PRIMARY CARE DOCTOR, THE PHYSICIAN WHOSE NAME AND NUMBER YOU WERE GIVEN, OR RETURN TO THE ED IMMEDIATELY. Problem Qualifiers Primary Impression: Knee pain Chronicity: acute Laterality: right Qualified Codes: M25.561 - Pain in right knee RAFI BERRY APRN Jan 02, 2021 16:12 BEVERLEY HUTCHINSON DO Jan 03, 2021 06:34
== END 2021-01-02 16:44 | disposition home or self-care (01) ==
LOC: ER 15:21
DX: M25.461 Effusion, right knee (principal); E78.5 Hyperlipidemia, unspecified; Z90.710 Acquired absence of both cervix and uterus; Z98.51 Tubal ligation status; W01.0XXA Fall on same level from slipping, tripping and stumbling without subsequent striking against object, initial encounter; Y93.01 Activity, walking, marching and hiking; Y92.89 Other specified places as the place of occurrence of the external cause; Y99.8 Other external cause status
CPT/HCPCS: 29505; 73564; 99283-25

== ENCOUNTER 2021-01-13 01:49 | Emergency (ER) | payer SELFPAY ==
[~2021-01-13] VITALS: Ht 167.6 cm; Wt 110.0 kg
[2021-01-13 01:55] VITALS: BP 122/67
--- NOTE | 2021-01-13 02:16 | PHYS DOC ---
Past History Past Medical History: Anxiety, Depression, High Cholesterol, Kidney Stones, Migraines, Other Additional Past Medical Histor: "Pre Diabetic" Past Surgical History: Appendectomy, , Hysterectomy, Oophorectomy, Tubal ligation Additional Past Surgical Histo: Back surgery of L4-L5 and S1 Alcohol Use: None Adult General Chief Complaint Chief Complaint: FOREIGNBODY EAR HPI HPI Patient is a 40-year-old female presenting for right ear foreign body. Reports she was lying on the couch with her significant other when a nagel crawled in her right ear. Reports she felt movement but her boyfriend irrigated her right ear heavily for about 10 minutes until all movement stopped so she thinks it . States her boyfriend use several household items in attempt to retrieve insect without success prompting her to come in for evaluation. She has no changes in hearing. She does admit that she had some slight ear bleeding shortly after her boyfriend tried extracting bug due to external trauma to tragus but this has since resolved. Review of Systems Review of Systems Fourteen body systems of review of systems have been reviewed. See HPI for pertinent positives and negative responses, other dubois all other systems are negative, non-pertinent or non-contributory Allergies Allergies Allergies Coded Allergies Type Severity Reaction Last Updated Verified No Known Drug Allergies 01/02/21 No Physical Exam Physical Exam Constitutional: Well developed, well nourished, no acute distress, non-toxic appearance. HENT: Normocephalic, atraumatic, right ear tragus with small abrasion noted with hemostasis achieved, inner ear red with several abrasions noted likely from boyfriends attempted foreign body retrieval, insect which shallow consistent with nagel present without obvious tympanic membrane perforation near wall of the tympanic membrane, oropharynx moist, no oral exudates, nose normal. Eyes: PERRLA, EOMI, conjunctiva normal, no discharge. Neck: Normal range of motion, no tenderness, supple, no stridor. Cardiovascular: Heart rate regular per monitor Lungs & Thorax: No respiratory distress or accessory muscle use, bilateral chest rise Abdomen: Abdomen soft, non-tender, bowel sounds present in all quadrants, no guarding or rebound, nonacute abdomen. Skin: Warm, dry, no erythema, no rash. Back: No tenderness, no CVA tenderness. Extremities: No tenderness, no cyanosis, no clubbing, ROM intact, no edema. Neurologic: Alert and oriented X 3, grossly normal motor & sensory function, no focal deficits noted. Psychologic: Anxious affect and mood Current Patient Data Vital Signs Vital Signs Date Time Temp Pulse Resp B/P (MAP) Pulse Ox O2 Delivery O2 Flow Rate FiO2 01/13/21 01:55 98.1 88 18 122/67 (85) 97 EKG EKG [] Radiology/Procedures Radiology/Procedures [] Heart Score C/O Chest Pain: No Risk Factors: Risk Factors: DM, Current or recent (<one month) smoker, HTN, HLP, family history of CAD, obesity. Risk Scores: Risk Factors: DM, Current or recent (<one month) smoker, HTN, HLP, family history of CAD, obesity. Course & Med Decision Making Course & Med Decision Making ABCs unremarkable HPI and physical exam nonconcerning for any emergent or surgical issues Patient has known foreign body, likely a nagel embedded within right ear Attempts were made to use alligator forceps which failed. Curette and lighted curette with magnifying glass used without relief. Patient's right ear was irrigated with copious amount of normal saline without significant location change Wall suction with ear curette used for cerumen impaction was used with expulsion of majority of insect contents but there still remains a significant portion of insect shell embedded near the tympanic membrane. Attempts above repeated without success Joint decision made between myself and patient to stop further attempts to avoid any potential harm to patient's tympanic membrane or inner ear. Joint decision made to start topical antibiotic drop with close ENT follow-up for definitive retrieval Strict return precautions discussed at length with good understanding by patient, all questions and concerns addressed prior to ER departure Dragon Disclaimer Dragon Disclaimer This electronic medical record was generated, in whole or in part, using a voice recognition dictation system. Departure Departure: Impression: Primary Impression: Foreign body in right ear Disposition: HOME / SELF CARE / HOMELESS Condition: STABLE Referrals: PCP,UNKNOWN (PCP) Additional Instructions: As discussed prior to ER departure, your vitals and physical exam were nonconcerning for any emergent or surgical issues. You had an obvious foreign body by means of likely a nagel in your right ear. Several efforts were made to retrieve this with significant amount retrieved but there is still a retained shell. Efforts were stopped to avoid any further damage to inner ear or tympanic membrane. As such, decision was made to start you on ofloxacin eardrops that should be used for a total of 7 days. Please drop 5 drops in affected ear once in the morning and once at night. He also need to call your primary care physician immediately in the morning to review ER visit and need for close ENT specialist follow-up for definitive management and foreign body retrieval. Any concerning signs or symptoms present prior to outpatient follow- up please do not hesitate to come back for repeat evaluation. Is a pleasure to take care of you and I wish you the best going forward Scripts Ofloxacin (OFLOXACIN) 5 Ml Drops 5 DROP BID for foreign body, #5 ML 0 Refills Prov: RL JARQUIN DO 01/13/21 RL JARQUIN DO Jan 13, 2021 02:16
[2021-01-13] MEDS ORDERED: OFLO5DRO7 AS (03:08)
[2021-01-14] MEDS ORDERED: DICL50TA2 PO (18:46)
[2021-01-14] MEDS ORDERED: PRED50TA PO (18:46)
== END 2021-01-13 03:11 | disposition home or self-care (01) ==
LOC: ER 01:49
DX: T16.1XXA Foreign body in right ear, initial encounter (principal); F41.9 Anxiety disorder, unspecified; F32.9 Major depressive disorder, single episode, unspecified; E78.00 Pure hypercholesterolemia, unspecified; Z87.442 Personal history of urinary calculi; G43.909 Migraine, unspecified, not intractable, without status migrainosus; X58.XXXA Exposure to other specified factors, initial encounter; Y93.89 Activity, other specified; Y92.89 Other specified places as the place of occurrence of the external cause; Y99.8 Other external cause status
CPT/HCPCS: 69200; 99284

== ENCOUNTER 2021-01-14 16:58 | Emergency (ER) | payer BC ==
[~2021-01-14] VITALS: Ht 167.6 cm; Wt 110.0 kg
[~2021-01-14 16:58] MED LIST changes: +OFLO5DRO7 AS
--- NOTE | 2021-01-14 17:51 | RAD ---
Study: XR CHEST 1V Indication: Cough. Comparison: 06/19/2020 Findings: Similar overall aeration pattern of the lungs from the comparison. No confluent infiltrate, pleural e ffusion or pneumothorax. The cardiomediastinal silhouette is within normal limits for size. Relativel y symmetric oxana. No newly apparent osseous abnormality. Impression: No acute radiographic abnormality of the chest. Electronically signed by: JUDY CHOWDHURY MD (01/14/2021 5:49 PM) [facility]
--- NOTE | 2021-01-14 18:39 | PHYS DOC ---
Past History Past Medical History: Anxiety, Depression, High Cholesterol, Kidney Stones, Migraines, Other Additional Past Medical Histor: "Pre Diabetic" (ODILON JENNINGS FUNERAL ATTENDANT) Past Surgical History: Appendectomy, , Hysterectomy, Oophorectomy, Tubal ligation Additional Past Surgical Histo: Back surgery of L4-L5 and S1 (ODILON JENNINGS FUNERAL ATTENDANT) Alcohol Use: None (ODILON JENNINGS FUNERAL ATTENDANT) Adult General Chief Complaint Chief Complaint: MULTIPLE COMPLAINTS HPI HPI Patient is a 40-year-old male patient presenting to the ED today with multiple complaints. Patient is complaining of a productive cough, symptoms have been going on since June 2020 after being diagnosed with COVID-19. Patient is also complaining of sore throat and chills since yesterday. Denies any fever. Patient is also complaining of mild right ear pain for 2 days, she states 2 days ago she had part of a cockroach removed from the right ear but they were not able to remove the whole cockroach, she states she is not able to follow-up with a specialist because of money. Patient is also complaining of chronic right knee pain, she states she already had x-rays done and she was noted to have some fluid in the right knee and was instructed to follow-up with an orthopedic doctor, she states she is not able to follow-up because they need velásquez money or insurance which she does not have until February 03. Denies any injuries. She is requesting a note for work for a few days (ODILON JENNINGS FUNERAL ATTENDANT) Review of Systems Review of Systems Constitutional: Reports chills, denies fever Eyes: Denies change in visual acuity, redness, or eye pain [] HENT: Reports right ear pain. Reports sore throat. Denies nasal congestion Respiratory: Reports cough, denies shortness of breath [] Cardiovascular: No additional information not addressed in HPI [] GI: Denies abdominal pain, nausea, vomiting, bloody stools or diarrhea [] : Denies dysuria or hematuria [] Musculoskeletal: Reports right knee pain Integument: Denies rash or skin lesions [] Neurologic: Denies headache, focal weakness or sensory changes [] Endocrine: Denies polyuria or polydipsia [] All other systems were reviewed and found to be within normal limits, except as documented in this note. (ODILON JENNINGS APRN) Allergies Allergies Allergies Coded Allergies Type Severity Reaction Last Updated Verified No Known Drug Allergies 01/14/21 No (ODILON JENNINGS APRN) Physical Exam Physical Exam Constitutional: Well developed, well nourished, no acute distress, non-toxic appearance. [] HENT: Normocephalic, atraumatic, bilateral external ears normal, oropharynx moist, no oral exudates, nose normal. [] Right ear canal noted for partial insect suspicious of cockroach Eyes: PERRLA, EOMI, conjunctiva normal, no discharge. [] Neck: Normal range of motion, no tenderness, supple, no stridor. [] Cardiovascular:Heart rate regular rhythm, no murmur [] Lungs & Thorax: Bilateral breath sounds clear to auscultation [] Abdomen: Bowel sounds normal, soft, no tenderness, no masses, no pulsatile masses. [] Skin: Warm, dry, no erythema, no rash. [] Back: No tenderness, no CVA tenderness. [] Extremities: No tenderness, no cyanosis, no clubbing, ROM intact, no edema. [] Neurologic: Alert and oriented X 3, normal motor function, normal sensory function, no focal deficits noted. [] Psychologic: Affect normal, judgement normal, mood normal. [] (ODILON JENNINGS APRN) Current Patient Data Vital Signs Vital Signs Date Time Temp Pulse Resp B/P (MAP) Pulse Ox O2 Delivery O2 Flow Rate FiO2 01/14/21 17:05 98.7 91 18 148/85 (106) 98 Room Air Lab Results Laboratory Tests Test 01/14/21 17:30 Group A Streptococcus Rapid Negative (NEGATIVE) (ODILON JENNINGS APRN) EKG EKG [] (ODILON JENNINGS APRN) Radiology/Procedures Radiology/Procedures []PROCEDURE: CHEST AP ONLY Study: XR CHEST 1V Indication: Cough. Comparison: 06/19/2020 Findings: Similar overall aeration pattern of the lungs from the comparison. No confluent infiltrate, pleural effusion or pneumothorax. The cardiomediastinal silhouette is within normal limits for size. Relatively symmetric oxana. No newly apparent osseous abnormality. Impression: No acute radiographic abnormality of the chest. Electronically signed by: JUDY CHOWDHURY MD (01/14/2021 5:49 PM) [facility] DICTATED AND SIGNED BY: JUDY CHOWDHURY MD DATE: 01/14/21 1748 CC: ODILON JENNINGS APRN; NORBERT ROMERO APRN ~MTH0 0 (ODILON JENNINGS APRN) Heart Score C/O Chest Pain: N/A Risk Factors: Risk Factors: DM, Current or recent (<one month) smoker, HTN, HLP, family history of CAD, obesity. Risk Scores: Risk Factors: DM, Current or recent (<one month) smoker, HTN, HLP, family history of CAD, obesity. (ODILON JENNINGS APRN) Course & Med Decision Making Course & Med Decision Making Pertinent Labs and Imaging studies reviewed. (See chart for details) This is a 40-year-old female patient presented to the ED today with multiple complaints including a cough since June. Sore throat and chills since yesterday, chronic right knee pain. Right ear pain for 2 days. She had partial cockroach removed from the ear. Right ear canal still shows there is a tiny cockroach deep into the ear canal. She already had x-rays of the right knee which were negative for any acute findings. Rapid strep test is negative. Chest x-ray interpreted by radiologist is negative for any acute findings. Recommended she follows up with the ENT for the cockroach in the ear, orthopedic doctor for right knee pain and PCP for the rest. She also requested a note for work for 3 days which was provided. (ODILON JENNINGS APRN) Course & Med Decision Making I was the Attending physician on the above date of service of this patient. This patient was evaluated, examined, treated, and dispositioned from the emergency department by the mid-level practitioner. Although I was working at the time , no assistance was requested. Electronically signed, Rl Jarquin DO (RL JARQUIN DO) Lencho Disclaimer Dragon Disclaimer This electronic medical record was generated, in whole or in part, using a voice recognition dictation system. (ODILON JENNINGS APRN) Departure Departure: Impression: Primary Impression: Cough Additional Impressions: Acute pharyngitis Otalgia, right ear Chronic knee pain Ear foreign body Disposition: HOME / SELF CARE / HOMELESS Condition: STABLE Referrals: ROMERO,NORBERT A FUNERAL ATTENDANT (PCP) follow up in one week Patient Instructions: Cough, Adult, [id number], Knee Pain, Otalgia, Viral Pharyngitis Additional Instructions: You were evaluated in the emergency room, your rapid strep test is negative. Your chest x-ray is negative for any acute findings. Please follow-up with your primary care doctor, ENT and orthopedic doctor next week Scripts Diclofenac Potassium (DICLOFENAC POTASSIUM) 50 Mg Tablet 1 TAB PO BID, #20 TAB 1 Refill Prov: ODILON JENNINGS APRN 01/14/21 Prednisone (PREDNISONE) 50 Mg Tablet 1 TAB PO DAILY, #5 TAB Prov: ODILON JENNINGS APRN 01/14/21 Problem Qualifiers Additional Impressions: Acute pharyngitis Pharyngitis/tonsillitis etiology: unspecified etiology Qualified Codes: J02.9 - Acute pharyngitis, unspecified Chronic knee pain Laterality: right Qualified Codes: M25.561 - Pain in right knee; G89.29 - Other chronic pain Ear foreign body Encounter type: initial encounter Laterality: right Qualified Codes: T16.1XXA - Foreign body in right ear, initial encounter ODILON JENNINGS APRN Jan 14, 2021 18:39 RL JARQUIN DO Jan 16, 2021 06:17
[2021-01-14] MEDS ORDERED: PRED50TA PO (18:46)
[2021-01-14] MEDS ORDERED: DICL50TA2 PO (18:46)
[2021-01-14 18:50] VITALS: BP 136/72
== END 2021-01-14 18:55 | disposition home or self-care (01) ==
LOC: ER 16:58
DX: T16.1XXA Foreign body in right ear, initial encounter (principal); J02.9 Acute pharyngitis, unspecified; H92.01 Otalgia, right ear; E78.5 Hyperlipidemia, unspecified; Z90.710 Acquired absence of both cervix and uterus; Z98.51 Tubal ligation status; Z87.442 Personal history of urinary calculi; X58.XXXA Exposure to other specified factors, initial encounter; Y93.89 Activity, other specified; Y92.89 Other specified places as the place of occurrence of the external cause; Y99.8 Other external cause status
CPT/HCPCS: 71045; 87070; 87880; 99284-25

== ENCOUNTER 2021-01-16 13:29 | Emergency (ER) | payer BC ==
[~2021-01-16] VITALS: Ht 167.6 cm; Wt 110.0 kg
[~2021-01-16 13:29] MED LIST changes: +DICL50TA2 PO
[2021-01-16 13:40] VITALS: BP 138/90
--- NOTE | 2021-01-16 13:59 | PHYS DOC ---
Past History Past Medical History: Anxiety, Depression, High Cholesterol, Kidney Stones, Migraines, Other Additional Past Medical Histor: "Pre Diabetic" insomnia (ODILON JENNINGS APRN) Past Surgical History: Appendectomy, , Hysterectomy, Oophorectomy, Tubal ligation Additional Past Surgical Histo: Back surgery of L4-L5 and S1 (ODILON JENNINGS APRN) Alcohol Use: None (ODILON JENNINGS APRN) Adult General Chief Complaint Chief Complaint: COUGH HPI HPI Patient is a 40-year-old female patient who presents to the ED today complaining of a productive cough since June 2020 after she was diagnosed with COVID-19. She is also complaining of a sore throat and chills for 4 days. Patient is also complaining of mild right ear pain, she was seen in the ED on June 13, 2020 and had a cockroach in the right ear, they tried to remove it but part of the cockroach was too deep into the ear canal and they were unable to remove it. She states she is not able to follow up with ENT because she has no insurance. She was seen in the ED 2 days ago for the same complaints. Patient states her job will not let her back to work without a negative Covid test. She states she was already vaccinated against Covid. 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 Reports sore throat Denies nasal congestion Respiratory: Denies cough or shortness of breath [] Cardiovascular: No additional information not addressed in HPI [] GI: Denies abdominal pain, nausea, vomiting, bloody stools or diarrhea [] : Denies dysuria or hematuria [] Musculoskeletal: Denies back pain or joint pain [] Integument: Denies rash or skin lesions [] Neurologic: Denies headache, focal weakness or sensory changes [] All other systems were reviewed and found to be within normal limits, except as documented in this note. (ODILON JENNINGS APRN) Allergies Allergies Allergies Coded Allergies Type Severity Reaction Last Updated Verified No Known Drug Allergies 01/14/21 No (ODILON JENNINGS APRN) Physical Exam Physical Exam Constitutional: Well developed, well nourished, no acute distress, non-toxic appearance. [] HENT: Normocephalic, atraumatic, bilateral external ears normal, oropharynx moist, no oral exudates, nose normal. [] Right TM cannot be visualized, there is a foreign object suspicious of a cockroach deep into the ear Eyes: PERRLA, EOMI, conjunctiva normal, no discharge. [] Neck: Normal range of motion, no tenderness, supple, no stridor. [] Cardiovascular:Heart rate regular rhythm, no murmur [] Lungs & Thorax: Bilateral breath sounds clear to auscultation [] Abdomen: Bowel sounds normal, soft, no tenderness, no masses, no pulsatile masses. [] Skin: Warm, dry, no erythema, no rash. [] Back: No tenderness, no CVA tenderness. [] Extremities: No tenderness, no cyanosis, no clubbing, ROM intact, no edema. [] Neurologic: Alert and oriented X 3, normal motor function, normal sensory function, no focal deficits noted. [] Psychologic: Affect normal, judgement normal, mood normal. [] (ODILON JENNINGS HADOOP ARCHITECT) Current Patient Data Vital Signs Vital Signs Date Time Temp Pulse Resp B/P (MAP) Pulse Ox O2 Delivery O2 Flow Rate FiO2 01/16/21 13:40 98.5 96 18 138/90 (106) 98 (ODILON JENNINGS APRN) EKG EKG [] (ODILON JENNINGS APRN) Radiology/Procedures Radiology/Procedures [] (ODILON JENNINGS APRN) Heart Score C/O Chest Pain: N/A Risk Factors: Risk Factors: DM, Current or recent (<one month) smoker, HTN, HLP, family history of CAD, obesity. Risk Scores: Risk Factors: DM, Current or recent (<one month) smoker, HTN, HLP, family history of CAD, obesity. (ODILON JENNINGS HADOOP ARCHITECT) Course & Med Decision Making Course & Med Decision Making Pertinent Labs and Imaging studies reviewed. (See chart for details) This is a 40-year-old female patient presenting to the ED today requesting a Covid test. Patient has had a cough since June. Was seen in the ED 2 days ago for the same complaints of cough, sore throat, chills and ear pain. She had a negative chest x-ray. She states today she cannot return to work without a negative. She was tested in the ED and results will be called to her when available. She cockroach in the right ear, he was in the ED 3 days ago and they were unable to remove the whole cockroach. I provided her ENT for follow up. (ODILON JENNINGS APRN) Course & Med Decision Making I was the Attending physician on the above date of service of this patient. This patient was evaluated, examined, treated, and dispositioned from the emergency department by the mid-level practitioner. Although I was working at the time , no assistance was requested. Electronically signed, Rl Jarquin DO (RL JARQUIN DO) Lencho Disclaimer Dragon Disclaimer This electronic medical record was generated, in whole or in part, using a voice recognition dictation system. (ODILON JENNINGS APRN) Departure Departure: Impression: Primary Impression: Person under investigation for COVID-19 Additional Impressions: Cough Otalgia, right ear Ear foreign body Disposition: 01 HOME / SELF CARE / HOMELESS Condition: STABLE Referrals: NORBERT ROMERO APRN (PCP) Please follow up with Dr. Vanessa Deluca [address] [facility] [facility] [address] [address] Patient Instructions: Cough, Adult, [id number], Ear Foreign Body Additional Instructions: You were evaluated in the emergency room for cough, sore throat and chills. You were tested for COVID-19, please quarantine yourself until you get results from us. We will call you when results are available. You can use [id number] medicines as needed for your symptoms Please follow-up with ENT specialist Dr. Vanessa Deluca [address] [facility] [address], [place], [place] [id number] Problem Qualifiers Additional Impressions: Ear foreign body Encounter type: subsequent encounter Laterality: right Qualified Codes: T16.1XXD - Foreign body in right ear, subsequent encounter ODILON JENNINGS APRN Jan 16, 2021 13:59 RL JARQUIN DO Jan 17, 2021 06:54
--- NOTE | 2021-01-18 16:10 | NUR ---
IP: Pt called asking for covid results. Informed pt of negative results. She voiced understanding.
== END 2021-01-16 14:20 | disposition home or self-care (01) ==
LOC: ER 13:29
DX: H92.01 Otalgia, right ear (principal); T16.1XXD Foreign body in right ear, subsequent encounter; J02.9 Acute pharyngitis, unspecified; E78.00 Pure hypercholesterolemia, unspecified; G43.909 Migraine, unspecified, not intractable, without status migrainosus; Z20.822 Contact with and (suspected) exposure to COVID-19; Z87.442 Personal history of urinary calculi; X58.XXXD Exposure to other specified factors, subsequent encounter
CPT/HCPCS: 99283; C9803; U0003

== ENCOUNTER 2021-02-02 11:51 | Emergency (ER) | payer BC, MEDICAID ==
[~2021-02-02] VITALS: Ht 167.6 cm; Wt 110.0 kg
[2021-02-02 12:31] VITALS: BP 113/81
[2021-02-02 13:27] LABS: CALCIUM 8.8 mg/dL (8.5-10.1); GFR 61.4; POTASSIUM 3.8 mmol/L (3.5-5.1)
[2021-02-02] MEDS ORDERED: DEXAMETHASONE SOD PHOS 10 MG/ML VIAL. PO ONE (13:30)
[2021-02-02] MEDS ORDERED: ONDANSETRON PF 4 MG/2 ML VIAL. IVP ONE (13:30)
--- NOTE | 2021-02-02 13:33 | PHYS DOC ---
Past History Past Medical History: Anxiety, Depression, High Cholesterol, Kidney Stones, Migraines, Other Additional Past Medical Histor: "Pre Diabetic" insomnia (CURRY NOEL APRN) Past Surgical History: Appendectomy, , Hysterectomy, Oophorectomy, Tubal ligation Additional Past Surgical Histo: Back surgery of L4-L5 and S1 (CURRY NOEL APRN) Alcohol Use: Rarely (CURRY NOEL APRN) General Adult EDM: Chief Complaint: NAUSEA/VOMITING/DIARRHEA HPI: HPI: Patient is a 40-year-old female who presents with cough since June. Patient states "I had Covid in June and ever since then I cannot get rid of my cough". I have also been feeling nauseous the last couple of days. Denies fever. Patient is also reporting a cockroach in her right ear. Patient states that when she was seen in June she was referred to ENT but has not followed up with them. Insect is too far in the ear canal to remove. Patient has history of anxiety, depression, high cholesterol. (CURRY NOEL APRN) Review of Systems: Review of Systems: ROS At least 10 ROS systems have been reviewed and are negative except as documented in the HPI. General: Negative except as outlined in HPI above. Skin: Negative except as outlined in HPI above. HEENT: Negative except as outlined in HPI above. Neck: Negative except as outlined in HPI above. Respiratory: Negative except as outlined in HPI above.. Cardiovascular: Negative except as outlined in HPI above. Abdomen: Negative except as outlined in HPI above. : Negative except as outlined in HPI above. Back/MSK: Negative except as outlined in HPI above. Neuro: Negative except as outlined in HPI above. Psych: Negative except as outlined in HPI above. (CURRY NOEL APRN) Current Medications: Current Meds: Current Medications Medications (Trade) Dose Ordered Sig/Lizzie Start Time Stop Time Status Last Admin Dose Admin Dexamethasone Sodium Phosphate (Decadron) 10 mg 1X ONCE 02/02/21 13:30 02/02/21 13:31 UNV Ondansetron HCl (Zofran) 4 mg 1X ONCE 02/02/21 13:30 02/02/21 13:31 UNV (CURRY NOEL APRN) Allergies: Allergies: Allergies Coded Allergies Type Severity Reaction Last Updated Verified No Known Drug Allergies 01/14/21 No (CURRY NOEL APRN) Physical Exam: PE: Constitutional: Well developed, well nourished, no acute distress, non-toxic appearance. [] HENT: Normocephalic, atraumatic, bilateral external ears normal, patient has foreign body in right ear, oropharynx moist, no oral exudates, nose normal. [] Eyes: PERRLA, EOMI, conjunctiva normal, no discharge. [] Neck: Normal range of motion, no tenderness, supple, no stridor. [] Cardiovascular:Heart rate regular rhythm, no murmur [] Lungs & Thorax: Bilateral breath sounds clear to auscultation [] Abdomen: Bowel sounds normal, soft, no tenderness Skin: Warm, dry, no erythema, no rash. [] Back: No tenderness, no CVA tenderness. [] Extremities: No tenderness, no cyanosis, no clubbing, ROM intact, no edema. [] Neurologic: Alert and oriented X 3, normal motor function, normal sensory function, no focal deficits noted. [] Psychologic: Affect normal, judgement normal, mood normal. [] (CURRY NOEL APRN) Current Patient Data: Vital Signs: Vital Signs Date Time Temp Pulse Resp B/P (MAP) Pulse Ox O2 Delivery O2 Flow Rate FiO2 02/02/21 12:31 98.5 111 16 113/81 (92) 98 Room Air (CURRY NOEL APRN) EKG: EKG: [] (CURRY NOEL APRN) Radiology/Procedures: Radiology/Procedures: [] (CURRY NOEL APRN) Heart Score: C/O Chest Pain: No Risk Factors: Risk Factors: DM, Current or recent (<one month) smoker, HTN, HLP, family history of CAD, obesity. Risk Scores: Score 0 - 3: 2.5% MACE over next 6 weeks - Discharge Home Score 4 - 6: 20.3% MACE over next 6 weeks - Admit for Clinical Observation Score 7 - 10: 72.7% MACE over next 6 weeks - Early Invasive Strategies (CURRY NOEL APRN) Course & Med Decision Making: Course & Med Decision Making Pertinent Labs and Imaging studies reviewed. (See chart for details) [] 40-year-old female presents with cough since June. Patient reports that cough has been present since June when she was diagnosed with Covid. Chest x- ray ordered. Zofran given for nausea. Dexamethasone given. Basic labs reviewed in ER. Patient also states that she was seen here a couple weeks ago and had a cockroach in her ear. Patient states that cockroach was not able to be completely removed and was told to follow-up with ENT. Advised patient she still needs to follow-up with ENT due to it being too far in the ear canal for removal. Chest x-ray as unremarkable. Patient sent home with Zofran for nausea. Advised patient to follow-up with [facility] if symptoms continue. Patient was likely has a viral syndrome. Patient agrees with discharge plan. Hemodynamically stable upon disposition. (CURRY NOEL APRN) Course & Med Decision Making I was the Attending physician on the above date of service of this patient. This patient was evaluated, examined, treated, and dispositioned from the emergency department by the mid-level practitioner. Although I was working at the time , no assistance was requested. Electronically signed, Rl Jarquin DO (RL JARQUIN DO) Lencho Disclaimer: Lencho Disclaimer: This electronic medical record was generated, in whole or in part, using a voice recognition dictation system. (CURRY NOEL APRN) Departure Departure: Impression: Primary Impression: Cough Additional Impression: Nausea Disposition: 01 HOME / SELF CARE / HOMELESS Condition: STABLE Referrals: NORBERT ROMERO APRN (PCP) Patient Instructions: Cough, Adult, [id number] Additional Instructions: You were seen in the emergency room for cough and nausea. Your chest x-ray was unremarkable. All of your labs were unremarkable. Please follow-up with your doctor at [facility] if symptoms continue. Return emergency room with worsening symptoms or concerns EMERGENCY DEPARTMENT GENERAL DISCHARGE INSTRUCTIONS Thank you for coming to [facility] (ED) today and trusting us with you care. We trust that you had a positivie experience in our Emergency Department. If you wish to speak to the department management, you may call the director at [phone]. YOUR FOLLOW UP INSTRUCTIONS ARE FOLLOWS: 1. Do you have a private Doctor? If you do not have a private doctor, please ask for a resource list of physicians or clinics that may be able to assist you with follow up care. 2. The Emergency Physician has interpreted your x-rays. The X-Ray specialist will also review them. If there is a change in the findings, you will be notified in 48 hours when at all possible. 3. A lab test or culture has been done, your results will be reviewed and you will be notified if you need a change in treatment. ADDITIONAL INSTRUCTIONS AND INFORMATION: 1. Your care today has been supervised by a physician who is specially trained in emergency care. Many problems require more than one evaluation for a complete diagnosis and treatment. We recommend that you schedule your follow up appointment as recommended to ensure complete treatment of you illness or injury. If you are unable to obtain follow up care and continue to have a problem, or if your condition worsens, we recommend that you return to the ED. 2. We are not able to safely determine your condition over the phone nor are we able to give sound medical advice over the phone. For these safety reasons, if you call for medical advice we will ask you to come to the ED for further evaluation. 3. If you have any questions regarding these discharge instructions please call the ED at [phone]. SAFETY INFORMATION: In the interest of safety, wellness, and injury prevention; we encourage you to wear your sealbelt, if you smoke; quite smoking, and we encourage family to use a protective helmet for bicycling and other sporting events that present an increased risk for head injury. IF YOUR SYMPTOMS WORSEN OR NEW SYMPTOMS DEVELOP, OR YOU HAVE CONCERNS ABOUT YOUR CONDITION; OR IF YOUR CONDITION WORSENS WHILE YOU ARE WAITING FOR YOUR FOLLOW UP APPOINTMENT; EITHER CONTACT YOUR PRIMARY CARE DOCTOR, THE PHYSICIAN WHOSE NAME AND NUMBER YOU WERE GIVEN, OR RETURN TO THE ED IMMEDIATELY. Scripts Ondansetron Hcl (ZOFRAN) 4 Mg Tablet 4 MG PO TID PRN PRN for NAUSEA for 10 Days, #9 TAB Prov: CURRY NOEL APRN 02/02/21 CURRY NOEL APRN Feb 02, 2021 13:33 RL JARQUIN DO Feb 06, 2021 07:48
[2021-02-02 13:35] LABS: BASO % 1 % (0-3); EOS # 0.1 x10^3/uL (0.0-0.7); EOS % 1 % (0-3); HEMATOCRIT 38.2 % (36.0-47.0); HEMOGLOBIN 12.6 g/dL (12.0-15.5); LYMPH # 1.8 x10^3/uL (1.0-4.8); LYMPH % 41 % (24-48); MEAN CORPUSCULAR HEMOGLOBIN 30 pg (25-35); MEAN CORPUSCULAR HGB CONC 33 g/dL (31-37); MEAN CORPUSCULAR VOLUME 93 fL (79-100); MONO # 0.5 x10^3/uL (0.0-1.1); MONO % 10 % (0-9); NEUT # 2.1 x10^3uL (1.8-7.7); NEUT % 48 % (31-73); PLATELET COUNT 176 x10^3/uL (140-400); RED BLOOD COUNT 4.13 x10^6/uL (3.50-5.40); RED CELL DISTRIBUTION WIDTH 14.9 % (11.5-14.5); WHITE BLOOD COUNT 4.5 x10^3/uL (4.0-11.0)
--- NOTE | 2021-02-02 13:41 | RAD ---
EXAMINATION: XR CHEST 1V CLINICAL HISTORY: COUGH, SHORTNESS OF BREATH HX COVID 06/2020 EXAM DATE/TIME: 02/02/2021 1:20 PM COMPARISON: 01/14/2021 FINDINGS: Lines, Tubes, and Devices: None. Cardiomediastinal Silhouette: Within normal limits. Lungs and Pleura: No evidence of focal airspace consolidation or pleural effusion. Pulmonary vasculat ure unremarkable. Bones and Soft Tissues: No acute osseous abnormality. IMPRESSION: No evidence of acute cardiopulmonary abnormality or significant interval change. Electronically signed by: Jassi Kelly DO (02/02/2021 1:39 PM) [id number]
[2021-02-02 14:02] LABS: BACTERIA,URINE 0 /HPF (0-FEW); BILIRUBIN,URINE NEG (NEG); CLARITY,URINE HAZY; COLOR,URINE YELLOW; GLUCOSE,URINE NEG (NEG); NITRITE,URINE NEG (NEG); SQUAMOUS EPITHELIAL CELL,UR FEW /LPF
[2021-02-02] MEDS ORDERED: ONDA4TAB7 PO (14:12)
== END 2021-02-02 14:17 | disposition home or self-care (01) ==
LOC: ER 11:51
DX: R05.9 Cough, unspecified (principal); R11.0 Nausea; E78.00 Pure hypercholesterolemia, unspecified; G43.909 Migraine, unspecified, not intractable, without status migrainosus; F41.9 Anxiety disorder, unspecified; Z87.442 Personal history of urinary calculi
CPT/HCPCS: 36415; 71045; 80048; 81001; 85025; 87086; 96374; 99284; J1100; J2405

== ENCOUNTER 2021-02-21 09:25 | Emergency (ER) | payer MEDICAID ==
[~2021-02-21] VITALS: Ht 167.6 cm; Wt 110.0 kg
[2021-02-21 09:37] VITALS: BP 130/86
--- NOTE | 2021-02-21 09:53 | PHYS DOC ---
Past History Past Medical History: Anxiety, Depression, High Cholesterol, Kidney Stones, Migraines, Other Additional Past Medical Histor: "Pre Diabetic" insomnia Past Surgical History: Appendectomy, , Hysterectomy, Oophorectomy, Tubal ligation Additional Past Surgical Histo: Back surgery of L4-L5 and S1 Alcohol Use: Rarely General Adult EDM: Chief Complaint: LOWER EXT PAIN HPI: HPI: 40-year-old female presents with right knee pain. Patient has early severe arthritis at baseline in the right knee. She is scheduled for artificial cartilage surgery next month. She presents to the ER today because she was at work a couple of days ago and had a "pop" in the knee and she was unable to bear weight. She can stand on it at this time, but it is very painful. She does not have any pain medication other than Tylenol and I at home. She also wants to make sure there is not a new problem. She denies any other injuries or complaints at this time. Review of Systems: Review of Systems: Constitutional: Denies fever or chills Eyes: Denies change in visual acuity HENT: Denies nasal congestion or sore throat Respiratory: Denies cough or shortness of breath Cardiovascular: Denies chest pain or edema GI: Denies abdominal pain, nausea, vomiting, bloody stools or diarrhea : Denies dysuria Musculoskeletal: Right knee pain Integument: Denies rash Neurologic: Denies headache, focal weakness or sensory changes Endocrine: Denies polyuria or polydipsia Lymphatic: Denies swollen glands Psychiatric: Denies depression or anxiety Allergies: Allergies: Allergies Coded Allergies Type Severity Reaction Last Updated Verified No Known Drug Allergies 01/14/21 No Physical Exam: PE: Constitutional: Well developed, well nourished, no acute distress, non-toxic meli earance. [] HENT: Normocephalic, atraumatic, bilateral external ears normal, oropharynx moist, no oral exudates, nose normal. [] Eyes: PERRLA, EOMI, conjunctiva normal, no discharge. [] Neck: Normal range of motion, no tenderness, supple, no stridor. [] Cardiovascular:Heart rate regular rhythm, no murmur [] Lungs & Thorax: Bilateral breath sounds clear to auscultation [] Abdomen: Bowel sounds normal, soft, no tenderness, no masses, no pulsatile masses. [] Skin: Warm, dry, no erythema, no rash. [] Back: No tenderness, no CVA tenderness. [] Extremities: Right knee in an immobilizer pain with weightbearing. [] Neurologic: Alert and oriented X 3, normal motor function, normal sensory function, no focal deficits noted. [] Psychologic: Affect normal, judgement normal, mood normal. [] Current Patient Data: Vital Signs: Vital Signs Date Time Temp Pulse Resp B/P (MAP) Pulse Ox O2 Delivery O2 Flow Rate FiO2 02/21/21 09:37 107 20 130/86 (101) 97 EKG: EKG: [] Radiology/Procedures: Radiology/Procedures: [] Impressions: EXAM: Right knee, 3 views. HISTORY: Popping. COMPARISON: None. FINDINGS: 3 views of the right knee are obtained. There is mild tricompartment marginal spurring. There is a moderate joint effusion. There is an intra- articular osteophyte along the tibial spines. There is no fracture, dislocation or subluxation. IMPRESSION: Mild osteoarthritis of the right knee with moderate joint effusion. Electronically signed by: Adenike Tariq MD (02/21/2021 10:09 AM) [facility] DICTATED AND SIGNED BY: ADENIKE TARIQ MD DATE: 02/21/21 1009 CC: BEVERLEY HUTCHINSON DO; NORBERT ROMERO APRN ~MTH0 0 Heart Score: C/O Chest Pain: N/A Risk Factors: Risk Factors: DM, Current or recent (<one month) smoker, HTN, HLP, family history of CAD, obesity. Risk Scores: Score 0 - 3: 2.5% MACE over next 6 weeks - Discharge Home Score 4 - 6: 20.3% MACE over next 6 weeks - Admit for Clinical Observation Score 7 - 10: 72.7% MACE over next 6 weeks - Early Invasive Strategies Course & Med Decision Making: Course & Med Decision Making Pertinent Labs and Imaging studies reviewed. (See chart for details) The patient's x-ray is negative for acute findings. She does have an effusion and this could be a meniscal tear. I have advised she follow-up with her orthopedic surgeon. I will discharge her with a short course of [place] 5/325. She is stable for discharge at this time. [] Dragon Disclaimer: Lencho Disclaimer: This electronic medical record was generated, in whole or in part, using a voice recognition dictation system. Departure Departure: Impression: Primary Impression: Knee effusion, right Additional Impression: Knee pain Qualified Codes: M25.561 - Pain in right knee Disposition: HOME / SELF CARE / HOMELESS Condition: STABLE Referrals: NORBERT ROMERO APRN (PCP) Patient Instructions: Knee Effusion, [id number] Scripts Hydrocodone/Acetaminophen (Hydrocodone-Acetamin 5-325 mg) 1 Each Tablet 1 EACH PO Q4-6HRS PRN for PAIN, #10 TAB Prov: BEVERLEY HUTCHINSON DO 02/21/21 BEVERLEY HUTCHINSON DO Feb 21, 2021 09:53
--- NOTE | 2021-02-21 10:12 | RAD ---
EXAM: Right knee, 3 views. HISTORY: Popping. COMPARISON: None. FINDINGS: 3 views of the right knee are obtained. There is mild tricompartment marginal spurring. The re is a moderate joint effusion. There is an intra-articular osteophyte along the tibial spines. Ther e is no fracture, dislocation or subluxation. IMPRESSION: Mild osteoarthritis of the right knee with moderate joint effusion. Electronically signed by: Adenike Tariq MD (02/21/2021 10:09 AM) [facility]
[2021-02-21] MEDS ORDERED: HYDR-2759 PO (10:21)
== END 2021-02-21 10:36 | disposition home or self-care (01) ==
LOC: ER 09:25
DX: M25.461 Effusion, right knee (principal); M25.561 Pain in right knee; F41.9 Anxiety disorder, unspecified; F32.9 Major depressive disorder, single episode, unspecified; E78.00 Pure hypercholesterolemia, unspecified; G43.909 Migraine, unspecified, not intractable, without status migrainosus; Z87.442 Personal history of urinary calculi
CPT/HCPCS: 73562; 99283

== ENCOUNTER 2021-04-20 17:05 | Emergency (ER) | payer MEDICAID ==
[~2021-04-20] VITALS: Ht 167.6 cm; Wt 110.0 kg
[2021-04-20 17:05] VITALS: BP 125/95
[~2021-04-20 17:05] MED LIST changes: +HYDR-2759 PO
[2021-04-20 17:43] LABS: BACTERIA,URINE 0 /HPF (0-FEW); CLARITY,URINE HAZY; COLOR,URINE YELLOW; GLUCOSE,URINE NEG (NEG); NITRITE,URINE NEG (NEG); RBC,URINE OCC /HPF (0-2); SQUAMOUS EPITHELIAL CELL,UR FEW /LPF; UROBILINOGEN,URINE 0.2 mg/dL (0.2 mg/dL)
--- NOTE | 2021-04-20 17:48 | PHYS DOC ---
Past History Past Medical History: Anxiety, Depression, High Cholesterol, Kidney Stones, Migraines, Other Additional Past Medical Histor: "Pre Diabetic" insomnia (BALDEMAR MORENO APRN) Past Surgical History: Appendectomy, , Hysterectomy, Oophorectomy, Tubal ligation Additional Past Surgical Histo: Back surgery of L4-L5 and S1 (BALDEMAR MORENO APRN) Alcohol Use: Rarely (BALDEMAR MORENO APRN) General Adult EDM: Chief Complaint: FLANK PAIN HPI: HPI: Patient is a 40-year-old female that presents today with left flank pain. Patient states the pain started a couple of days ago, she states she was seen by her primary care physician who did a UA in the office, she states that she did not have a urinary tract infection and was instructed that if the pain did not subside or get worse in any way that she was to come to the emergency department for evaluation. Patient states the pain has intensified since 10:00 this morning and she does have some slight nausea with this but has not vomited. Patient states that she has had a full hysterectomy with her ovaries also being removed, she denies any vaginal bleeding or vaginal discharge, she denies any ken blood in her urine or painful urination as well, she states that her last bowel movement was this morning and it was a little bit more firm than normal. Patient does have a past medical history of kidney stones and her last one was about 18 months ago, she was seen and had to have the stone removed by a urologist at that time because she states that it was too big for her to pass. (BALDEMAR MORENO APRN) Review of Systems: Review of Systems: Constitutional: Denies fever or chills Eyes: Denies change in visual acuity HENT: Denies nasal congestion or sore throat Respiratory: Denies cough or shortness of breath Cardiovascular: Denies chest pain or edema GI: Left flank pain and nausea denies vomiting, bloody stools or diarrhea : Denies dysuria Musculoskeletal: Denies back pain or joint pain Integument: Denies rash Neurologic: Denies headache, focal weakness or sensory changes Endocrine: Denies polyuria or polydipsia Lymphatic: Denies swollen glands Psychiatric: Denies depression or anxiety (BALDEMAR MORENO APRN) Allergies: Allergies: Allergies Coded Allergies Type Severity Reaction Last Updated Verified No Known Drug Allergies 01/14/21 No (BALDEMAR MORENO RECEIVING TELLER) Physical Exam: PE: Constitutional: Well developed, well nourished, no acute distress, non-toxic appearance. [] HENT: Normocephalic, atraumatic, bilateral external ears normal, oropharynx moist, no oral exudates, nose normal. [] Eyes: PERRLA, EOMI, conjunctiva normal, no discharge. [] Neck: Normal range of motion, no tenderness, supple, no stridor. [] Cardiovascular:Heart rate regular rhythm, no murmur [] Lungs & Thorax: Bilateral breath sounds clear to auscultation [] Abdomen: Bowel sounds normal, soft, no tenderness, no masses, no pulsatile masses. [] Skin: Warm, dry, no erythema, no rash. [] Back: No tenderness, left CVA tenderness. [] Extremities: No tenderness, no cyanosis, no clubbing, ROM intact, no edema. [] Neurologic: Alert and oriented X 3, normal motor function, normal sensory function, no focal deficits noted. [] Psychologic: Affect normal, judgement normal, mood normal. [] (BALDEMAR MORENO RECEIVING TELLER) Current Patient Data: Labs: Laboratory Tests Test 04/20/21 17:11 Urine Collection Type Unknown Urine Color Yellow Urine Clarity Hazy Urine pH 7.0 Urine Specific [place] 1.020 Urine Protein Neg (NEG-TRACE) Urine Glucose (UA) Neg mg/dL (NEG) Urine Ketones (Stick) Neg mg/dL (NEG) Urine Blood Trace (NEG) Urine Nitrite Neg (NEG) Urine Bilirubin Neg (NEG) Urine Urobilinogen Dipstick 0.2 mg/dL (0.2 mg/dL) Urine Leukocyte Esterase Trace (NEG) Urine RBC Occ /HPF (0-2) Urine WBC 1-4 /HPF (0-4) Urine Squamous Epithelial Cells Few /LPF Urine Bacteria 0 /HPF (0-FEW) Urine Mucus Slight /LPF Vital Signs: Vital Signs Date Time Temp Pulse Resp B/P (MAP) Pulse Ox O2 Delivery O2 Flow Rate FiO2 04/20/21 17:05 98.2 115 18 125/95 (105) 99 Room Air (BALDEMAR MORENO RECEIVING TELLER) EKG: EKG: [] (BALDEMAR MORENO RECEIVING TELLER) Radiology/Procedures: Radiology/Procedures: REASON: ABD AND FLANK PAIN, HX RENAL STONES PROCEDURE: CT ABDOMEN PELVIS WO CONTRAST INDICATION: Reason: ABD AND FLANK PAIN, HX RENAL STONES / Spl. Instructions: / History: COMPARISON: None. TECHNIQUE: Axial CT images were obtained through the abdomen and pelvis without intravenous contrast. One or more of the following individualized dose reduction techniques were utilized for this examination: 1. Automated exposure control; 2. Adjustment of the mA and/or kV according to patient size; 3. Use of iterative reconstruction technique. FINDINGS: Vascular: Scattered mild calcified plaque Hepatobiliary: Liver appears mildly low-density. Nonspecific but can be seen with mild fatty infiltration. Small fat-containing umbilical hernia. Pancreas: Limited assessment without contrast. Spleen: Spleen mildly prominent in size. Subcentimeter low-density structure within which could be from a small low-density lesion such as cyst or hemangioma but not well characterized on this noncontrast exam. Renal/Bladder: Numerous nonobstructive left renal stones. Moderate left-sided hydronephrosis and hydroureter with adjacent edema in the fat. 6-7 mm left distal ureter stone. Urinary bladder is largely decompressed and therefore not well evaluated. Gastrointestinal: No dilated loops of bowel to suggest obstruction. Suture line at the cecal region could be from post appendectomy changes. Scattered nonspecific mildly prominent lymph nodes within abdomen. Degenerative changes of the spine with multilevel central canal and neural foraminal stenosis. IMPRESSION: * Left-sided hydronephrosis and hydroureter with distal ureter stone. There are several additional nonobstructive left renal stones. Electronically signed by: Kimo Fisher MD (04/20/2021 6:47 PM) [id number] DICTATED AND SIGNED BY: KIMO FISHER MD DATE: 04/20/211835[] (BALDEMAR MORENO APRN) Heart Score: C/O Chest Pain: N/A Risk Factors: Risk Factors: DM, Current or recent (<one month) smoker, HTN, HLP, family history of CAD, obesity. Risk Scores: Score 0 - 3: 2.5% MACE over next 6 weeks - Discharge Home Score 4 - 6: 20.3% MACE over next 6 weeks - Admit for Clinical Observation Score 7 - 10: 72.7% MACE over next 6 weeks - Early Invasive Strategies (BALDEMAR MORENO APRN) Course & Med Decision Making: Course & Med Decision Making Pertinent Labs and Imaging studies reviewed. (See chart for details) 1855 spoke to patient regarding her CT scan did inform her she does have a renal stone on the left ureter that is 6 to 7 mm and it is possible, did inform her that we will give her a dose of Flomax here in the emergency department and ordered some Flomax for her at home to be taken on a daily basis I did recommend her taking it at night because the major adverse effect is hypotension, will also order Zofran for nausea and hydrocodone's for pain. We will refer her to urology for further management of her renal stones or she can return here if the pain becomes worse or she is unable to take her pain medication. Patient verbalizes understanding of this agreeable to the plan of care. (BALDEMAR MORENO APRN) Dragon Disclaimer: Dragon Disclaimer: This electronic medical record was generated, in whole or in part, using a voice recognition dictation system. (BALDEMAR MORENO APRN) Departure Departure: Impression: Primary Impression: Renal stones Disposition: HOME / SELF CARE / HOMELESS Condition: STABLE Referrals: LEONOR ROBISON (PCP) LYNNE FOWLER MD Patient Instructions: Kidney Stones Additional Instructions: Bactrim take 1 tablet twice daily for 7 full days this is an antibiotic for urinary tract infection Flomax take 1 tablet at in the evening to help dilate the ureter to help pass the renal stone Zofran take 1 tablet every 6-8 hours as needed for nausea and vomiting use with caution may cause constipation Hydrocodone take 1 to 2 tablets as needed every 6 hours for severe pain Follow-up with Dr. Fowler or your own urologist for further management of your renal stone. Scripts Hydrocodone Bit/Acetaminophen (HYDROCODONE-APAP 5-325 ) 1 Each Tablet 1 TAB PO PRN Q6HRS PRN for PAIN, #30 TAB 0 Refills Prov: BALDEMAR MORENO APRN 04/20/21 Ondansetron (ONDANSETRON ODT) 4 Mg Tab.rapdis 1 TAB PO PRN Q6-8HRS for NAUSEA, #16 TAB Prov: BALDEMAR MORENO APRN 04/20/21 Tamsulosin Hcl (FLOMAX) 0.4 Mg Cap.er.24h 1 CAP PO HS for RENAL STONE, #30 CAP Prov: BALDEMAR MORENO RECEIVING TELLER 04/20/21 Sulfamethoxazole/Trimethoprim (BACTRIM DS TABLET) 1 Each Tablet 1 TAB PO BID for UTI for 7 Days, #14 TAB 0 Refills Prov: BALDEMAR MORENO RECEIVING TELLER 04/20/21 Dragon Disclaimer This chart was dictated in whole or in part using Voice Recognition software in a busy, high-work load, and often noisy Emergency Department environment. It may contain unintended and wholly unrecognized errors or omissions. (ANGELIQUE MADDOX MD) Attending Co-Sign Attending Co-Sign The patient was seen and interviewed as well as examined at the bedside. The chart was reviewed. The case was discussed. Agree with the plan of care. (ANGELIQUE MADDOX MD) Attending Signature Attending Signature I have participated in the care of this patient and I have reviewed and agree with all pertinent clinical information above including history, exam, and rec ommendations. (ANGELIQUE MADDOX MD) BALDEMAR MORENO APRN Apr 20, 2021 17:48 ANGELIQUE MADDOX MD Apr 24, 2021 03:09
[2021-04-20] MEDS ORDERED: ONDANSETRON ODT 4 MG TAB.RAPDIS PO ONE (18:00)
[2021-04-20] MEDS ORDERED: KETOROLAC 60 MG/2 ML VIAL. IM ONE (18:00)
--- NOTE | 2021-04-20 18:49 | RAD ---
INDICATION: Reason: ABD AND FLANK PAIN, HX RENAL STONES / Spl. Instructions: / History: COMPARISON: None. TECHNIQUE: Axial CT images were obtained through the abdomen and pelvis without intravenous contrast. One or more of the following individualized dose reduction techniques were utilized for this examinat ion: 1. Automated exposure control; 2. Adjustment of the mA and/or kV according to patient size; 3 . Use of iterative reconstruction technique. FINDINGS: Vascular: Scattered mild calcified plaque Hepatobiliary: Liver appears mildly low-density. Nonspecific but can be seen with mild fatty infiltra tion. Small fat-containing umbilical hernia. Pancreas: Limited assessment without contrast. Spleen: Spleen mildly prominent in size. Subcentimeter low-density structure within which could be fr om a small low-density lesion such as cyst or hemangioma but not well characterized on this noncontra st exam. Renal/Bladder: Numerous nonobstructive left renal stones. Moderate left-sided hydronephrosis and hydr oureter with adjacent edema in the fat. 6-7 mm left distal ureter stone. Urinary bladder is largely d ecompressed and therefore not well evaluated. Gastrointestinal: No dilated loops of bowel to suggest obstruction. Suture line at the cecal region c ould be from post appendectomy changes. Scattered nonspecific mildly prominent lymph nodes within abdomen. Degenerative changes of the spine with multilevel central canal and neural foraminal stenosis. IMPRESSION: * Left-sided hydronephrosis and hydroureter with distal ureter stone. There are several additional nonobstructive left renal stones. Electronically signed by: Rizwan Deluca MD (04/20/2021 6:47 PM) [id number]
[2021-04-20] MEDS ORDERED: SULF1TAB24 PO (19:03)
[2021-04-20] MEDS ORDERED: HYDR-2155 PO (19:03)
[2021-04-20] MEDS ORDERED: ONDA4TAB12 PO (19:03)
[2021-04-20] MEDS ORDERED: TAMS0.4C97 PO (19:03)
[2021-04-20] MEDS ORDERED: SMZ/TMP 800/160MG TABLET. PO ONE ×2 (19:08→19:15)
[2021-04-20] MEDS ORDERED: TAMSULOSIN 0.4 MG CAP.ER.24H. PO ONE ×2 (19:08→19:15)
[2021-04-20] MEDS ORDERED: ACETAMINOPHEN/CODEINE 300/30MG 4TABLET STARTPACK. PO ONE ×2 (19:09→19:15)
== END 2021-04-20 19:17 | disposition home or self-care (01) ==
LOC: ER 17:05
DX: N13.2 Hydronephrosis with renal and ureteral calculous obstruction (principal); F41.9 Anxiety disorder, unspecified; F32.9 Major depressive disorder, single episode, unspecified; E78.00 Pure hypercholesterolemia, unspecified; G43.909 Migraine, unspecified, not intractable, without status migrainosus; Z87.442 Personal history of urinary calculi; Z90.89 Acquired absence of other organs; Z98.890 Other specified postprocedural states; Z90.710 Acquired absence of both cervix and uterus; Z98.51 Tubal ligation status; Z90.722 Acquired absence of ovaries, bilateral
CPT/HCPCS: 74176; 81001; 87086; 96372; 99284; J1885; Q0162

== ENCOUNTER 2021-06-15 12:08 | Emergency (ER) | payer MEDICAID ==
[~2021-06-15] VITALS: Ht 167.6 cm; Wt 110.0 kg
[~2021-06-15 12:08] MED LIST changes: +HYDR-2155 PO; +ONDA4TAB12 PO; +SULF1TAB24 PO; +TAMS0.4C97 PO
[2021-06-15 12:21] VITALS: BP 142/79
[2021-06-15] MEDS ORDERED: IBUPROFEN 600 MG TABLET. PO ONE (12:30)
[2021-06-15] MEDS ORDERED: DEXAMETHASONE 4 MG TABLET PO ONE (12:30)
--- NOTE | 2021-06-15 12:40 | PHYS DOC ---
Past History Past Medical History: Anxiety, Depression, High Cholesterol, Kidney Stones, Migraines, Other Additional Past Medical Histor: "Pre Diabetic" insomnia Past Surgical History: Appendectomy, , Hysterectomy, Oophorectomy, Tubal ligation Additional Past Surgical Histo: Back surgery of L4-L5 and S1 Smoking: Non-smoker Alcohol Use: Rarely Drug Use: None General Adult EDM: Chief Complaint: COUGH HPI: HPI: Pt is a 40 yo F who presents c/o cough and diarrhea. Pt states she has had a cough for a year ever since having COVID but it has recently gotten worse. Diarrhea started yesterday. Pt has had 4 loose stools this morning. She reports mild abd cramping when she needs to have a BM. Pt has a fever today but was unaware of this. Pt has been exposed to COVID at work recently. She is fully vaccinated and boosted. She denies chills, SOB, and melena. No other complaints at this time. Review of Systems: Review of Systems: Constitutional: Denies chills; Reports fever Eyes: Denies redness or eye pain HENT: Denies nasal congestion or sore throat Respiratory: Denies cough or shortness of breath Cardiovascular: Denies chest pain or palpitations GI: Denies nausea, vomiting; Reports abd cramping and diarrhea : Denies dysuria or hematuria Musculoskeletal: Denies back pain or joint pain Integument: Denies rash or skin lesions Neurologic: Denies headache, focal weakness or sensory changes Complete systems were reviewed and found to be within normal limits, except as documented in this note. Current Medications: Current Meds: Current Medications Medications (Trade) Dose Ordered Sig/Lizzie Start Time Stop Time Status Last Admin Dose Admin Dexamethasone (Decadron) 10 mg 1X ONCE 06/15/21 12:30 06/15/21 12:32 DC Ibuprofen (Motrin) 600 mg 1X ONCE 06/15/21 12:30 06/15/21 12:31 DC Allergies: Allergies: Allergies Coded Allergies Type Severity Reaction Last Updated Verified No Known Drug Allergies 01/14/21 No Physical Exam: PE: Constitutional: Well developed, well nourished, no acute distress, non-toxic appearance HENT: Normocephalic, atraumatic, no pharyngeal erythema Eyes: Conjunctiva normal, no discharge Neck: Normal range of motion, no tenderness, supple, no LAD Lungs & Thorax: No respiratory distress, equal chest rise and fall Abdomen: Soft, no tenderness, no guarding/rebound tenderness/distention Skin: Warm, dry, no erythema, no rash Back: No tenderness, no CVA tenderness Extremities: No tenderness, ROM intact, no edema Neurologic: Alert and oriented X 3, no focal deficits noted Psychologic: Affect normal, judgment normal Current Patient Data: Vital Signs: Vital Signs Date Time Temp Pulse Resp B/P (MAP) Pulse Ox O2 Delivery O2 Flow Rate FiO2 06/15/21 12:21 101.3 105 16 142/79 (100) 96 Room Air EKG: EKG: [] Radiology/Procedures: Radiology/Procedures: PROCEDURE: CHEST AP ONLY XR CHEST 1V History: Cough Comparison: 02/02/2021, 01/14/2021 Technique: AP radiograph of the chest. Findings: The lungs are adequately and symmetrically inflated. No airspace consolidation, pleural effusion or pneumothorax. The cardiomediastinal silhouette and pulmonary vasculature are within normal limits. No acute osseous abnormality. Soft tissues are unremarkable. Impression: 1. No acute cardiopulmonary process. Electronically signed by: Sandor Guillen MD (06/15/2021 12:59 PM) [id number] Heart Score: C/O Chest Pain: N/A Course & Med Decision Making: Course & Med Decision Making Pertinent Labs and Imaging studies reviewed. (See chart for details) Pt is a 40 yo M who presents c/o cough and diarrhea concerning for viral illness . Abdomen nonperitoneal. Fever addressed. Other vital signs stable. Pt given Dexamethasone and Ibuprofen. CXR and Flu/COVID ordered. Chest x-ray without acute process. Rapid flu and COVID-19 negative. Await PCR COVID-19 testing. Encouraged pt to increase fluids and eat BRAT diet. Patient stable for discharge with outpatient follow-up with PCP. Discussed findings and plan with patient, who acknowledges understanding and agreement. COVID-19 CRITERIA: The patient was evaluated during the global COVID-19 pandemic, and that diagnosis was suspected/considered upon their initial presentation. Their evaluation, treatment and testing was consistent with current guidelines for patients who present with complaints or symptoms that may be related to COVID-19. Dragon Disclaimer: Dragon Disclaimer: This electronic medical record was generated, in whole or in part, using a voice recognition dictation system. Departure Departure: Impression: Primary Impression: Viral syndrome Additional Impressions: Chronic cough Diarrhea Qualified Codes: R19.7 - Diarrhea, unspecified Disposition: 01 HOME / SELF CARE / HOMELESS Condition: STABLE Referrals: LEONOR ROBISON (PCP) Patient Instructions: Cough, Adult, [id number], Diarrhea, [id number], Diet for Diarrhea, Adult, Viral Syndrome Additional Instructions: Increase fluid hydration. Increase diet to include foods that will naturally form stool together (ie BRAT diet- bananas, rice, applesauce, toast) You have been tested for or diagnosed with COVID-19. It is an infection caused by a new type of coronavirus. COVID-19 will cause cold-like or mild flu symptoms in most. It can cause more severe symptoms like problems breathing in some. There is no treatment for COVID-19. The body will clear the infection over time. Self-care will help to ease discomfort. Steps to Take: Self-Care Rest as needed. Healthy habits may help you feel better. Steps include: Choose healthy foods including fruits and vegetables. Drink water throughout the day. Get plenty of sleep each night. If you smoke, try to quit. It may ease breathing. Avoid alcohol. Keep Others Healthy The virus can spread to others. Droplets are released every time you sneeze or cough. The droplets can get into the mouth, nose, or eyes of people near you and lead to infection. To lower the chances of spreading COVID-19 to others: Stay at home until your doctor has said it is safe to leave. If you tested positive this will mean staying isolated until both of the following are true: At least 7 days have passed since the start of illness. You are free of fever for at least 72 hours without the use of medicine. During this time: - Avoid public areas, events, or transportation. Do not return to work or school until your doctor has said it is safe to do so. - Call ahead if you need to go to a medical center. Let them know you may have COVID-19. It will help them guide you where to go. They may also ask you to wear a facemask when you come to the office. - If you call for emergency medical services, let them know you may have COVID- 19. While at home: - Try to avoid close contact with others. Stay about 6 feet away. - If possible, spend most of your time in a separate room from others. - Use a face mask if you will be in close contact with others such as sharing a room or vehicle. - Have someone wipe down common surfaces in the home. Use household general operations agent every day on areas like doorknobs, counters, or sinks. - Cough or sneeze into a tissue. Throw the tissue away right after use. If a tissue is not available, cough or sneeze into your elbow. - Wash your hands often. Wash them after sneezing or coughing. Use soap and water and wash for at least 20 seconds. Alcohol based hand fur cleaner can be used if soap and water is not available. - Do not prepare food for others. Avoid sharing personal items like forks, spoons, or toothbrushes. - Avoid close contact with pets while you are sick. There is no evidence of the virus passing to pets. This is a safety step until more is known about this virus. Isolation can be frustrating. Social interaction can help. Keep in touch with friends and family through phone and tech options. You can still interact with others in your home, just keep a safe distance of about 6 feet. Follow-up: Your doctors office will check in with you to see if there are any changes in your health. You may be asked to keep track of symptoms to share with them. They will also let you know when you are clear to be in public again. Problems to Look Out For: Contact your doctor if your recovery is not going as you expect. Get emergency care if you have problems such as: - Trouble breathing - Nonstop chest pain or pressure - Changes in awareness, confusion, or problems waking - Lips or face have bluish color - Worsening of symptoms If you think you have an emergency, call for emergency medical services right away. As taken from [facility] COVID-19 Assessment COVID-19 Patient Risks: Age 65 or older: No Sign of co-morbidity: No Exp to person + for COVID: No Exp to PUI: No Travel from affected area: No Lower respiratory symptoms: Yes Fever: Yes Other: Yes PPE Use: Full PPE with N95 mask or PAPR: Yes RAFI AZAR DO Jun 15, 2021 12:40
--- NOTE | 2021-06-15 13:02 | RAD ---
XR CHEST 1V History: Cough Comparison: 02/02/2021, 01/14/2021 Technique: AP radiograph of the chest. Findings: The lungs are adequately and symmetrically inflated. No airspace consolidation, pleural effusion or p neumothorax. The cardiomediastinal silhouette and pulmonary vasculature are within normal limits. No acute osseous abnormality. Soft tissues are unremarkable. Impression: 1. No acute cardiopulmonary process. Electronically signed by: Sandor Guillen MD (06/15/2021 12:59 PM) [id number]
[2021-06-15 13:11] LABS: INFLUENZA A PATIENT NEGATIVE (NEGATIVE); INFLUENZA B PATIENT NEGATIVE (NEGATIVE)
== END 2021-06-15 13:35 | disposition home or self-care (01) ==
LOC: ER 12:08
DX: B34.9 Viral infection, unspecified (principal); R05.3 Chronic cough; R19.7 Diarrhea, unspecified; F41.9 Anxiety disorder, unspecified; F32.9 Major depressive disorder, single episode, unspecified; E78.00 Pure hypercholesterolemia, unspecified; G43.909 Migraine, unspecified, not intractable, without status migrainosus; Z87.442 Personal history of urinary calculi; Z90.89 Acquired absence of other organs; Z98.890 Other specified postprocedural states; Z90.710 Acquired absence of both cervix and uterus; Z98.51 Tubal ligation status; Z90.722 Acquired absence of ovaries, bilateral
CPT/HCPCS: 71045; 87428; 99284; C9803; J8540; U0003

== ENCOUNTER 2021-06-23 12:05 | Emergency (ER) | payer MEDICAID ==
[~2021-06-23] VITALS: Ht 167.6 cm; Wt 110.0 kg
[2021-06-23] MEDS: IPRATRPIUM/ALBUTEROL 0.5/2.5MG 3 ML NEBU. NEB ONE (12:30)
--- NOTE | 2021-06-23 12:31 | PHYS DOC ---
Past History Past Medical History: Anxiety, Depression, High Cholesterol, Kidney Stones, Migraines, Other Additional Past Medical Histor: "Pre Diabetic" insomnia Past Surgical History: Appendectomy, , Hysterectomy, Oophorectomy, Tubal ligation Additional Past Surgical Histo: Back surgery of L4-L5 and S1 Smoking: Non-smoker Alcohol Use: None Drug Use: None General Adult EDM: Chief Complaint: COUGH HPI: HPI: Patient is a 40-year-old female presents with a cough. Patient states that she has had a chronic cough for about a year, since acquiring COVID last June. Over the last week and a half this is gotten much worse. Cough is wet sounding but nonproductive. She has not had any associated fever for the last week. She states that she had come to the emergency department 1 week ago and had a fever at that time. She had a chest x-ray, COVID and flu swabs, these were negative. She has not had a recurrence of fever but the cough has been persistent and is not getting any better. She has not had any chest pain except for some discomfort with coughing spells. No abdominal symptoms. Review of Systems: Review of Systems: Constitutional: Denies fever Eyes: Denies change in visual acuity or eye pain HENT: Denies sore throat Respiratory: Reports some shortness of breath with coughing Cardiovascular: Denies chest pain GI: Denies abd pain : Denies dysuria Musculoskeletal: Denies back or extremity injury Integument: Denies rash or skin lesions Neurologic: Denies headache, focal weakness or sensory changes All other systems were reviewed and found to be within normal limits, except as documented in this note. Current Medications: Current Meds: Current Medications Medications (Trade) Dose Ordered Sig/Lizzie Start Time Stop Time Status Last Admin Dose Admin Albuterol/ Ipratropium (Duoneb) 3 ml 1X ONCE 06/23/21 12:30 06/23/21 12:31 Allergies: Allergies: Allergies Coded Allergies Type Severity Reaction Last Updated Verified No Known Drug Allergies 01/14/21 No Physical Exam: PE: Constitutional: Well developed, well nourished, no acute distress, non-toxic appearance. HENT: Normocephalic, atraumatic, bilateral external ears normal, mucosa moist, nose normal. Eyes: EOMI, conjunctiva normal, no discharge. Neck: Normal range of motion, supple, no stridor, no meningeal signs. Cardiovascular: Regular rate and rhythm Lungs & Thorax: Scattered wheezing bilaterally with overall good air exchange Abdomen: Soft, no tenderness or obvious masses Skin: Warm, dry, no erythema, no rash. Extremities: No tenderness, no cyanosis, no clubbing, ROM intact, no edema. Neurologic: Alert and oriented, normal motor function, normal sensory function, no focal deficits noted. Psychologic: Affect normal, judgement normal, mood normal. Current Patient Data: Vital Signs: Vital Signs Date Time Temp Pulse Resp B/P (MAP) Pulse Ox O2 Delivery O2 Flow Rate FiO2 06/23/21 12:16 97.9 82 18 110/57 (74) 97 Room Air EKG: EKG: [] Radiology/Procedures: Radiology/Procedures: [] Impressions: PATIENT: LIZ DOMINGUEZUNT: [id number] : 1980 LOCATION: ER AGE: 40 SEX: F EXAM STATUS: REG ER ORD. PHYSICIAN: KIMO HARRY MD REASON: productive cough PROCEDURE: CHEST PA & LATERAL XR CHEST 2V History: Reason: productive cough / Spl. Instructions: / History: Comparison: June 15, 2021 Findings: No consolidation or pleural effusion. Normal heart size. No pneumothorax. Impression: 1. No acute cardiopulmonary process. Electronically signed by: Stephan Zavala DO (06/23/2021 1:13 PM) [facility] DICTATED AND SIGNED BY: STEPHAN ZAVALA DO DATE: 06/23/21 1311 CC: LEONOR ROBISON; KIMO HARRY MD ~ Heart Score: C/O Chest Pain: N/A Risk Factors: Risk Factors: DM, Current or recent (<one month) smoker, HTN, HLP, family history of CAD, obesity. Risk Scores: Score 0 - 3: 2.5% MACE over next 6 weeks - Discharge Home Score 4 - 6: 20.3% MACE over next 6 weeks - Admit for Clinical Observation Score 7 - 10: 72.7% MACE over next 6 weeks - Early Invasive Strategies Course & Med Decision Making: Course & Med Decision Making Pertinent Labs and Imaging studies reviewed. (See chart for details) [] Is a 4-year-old female with cough. Chest x-ray is negative and influenza and COVID screen is negative as well. Patient was given a DuoNeb treatment and has had some improvement in symptoms. We will discharge her with prescription for albuterol inhaler and have her follow-up with her primary care physician, she stable for discharge at this time. [place] Disclaimer: Dragjesus Disclaimer: This electronic medical record was generated, in whole or in part, using a voice recognition dictation system. Departure Departure: Impression: Primary Impression: Cough Disposition: HOME / SELF CARE / HOMELESS Condition: STABLE Referrals: LEONOR ROBISON (PCP) Patient Instructions: Cough, Adult Scripts Albuterol Sulfate (PROAIR HFA INHALER) 8.5 Gm Hfa.aer.ad 2 PUFF INH PRN Q6HRS PRN for SHORTNESS OF BREATH for 7 Days, #1 INHALER 0 Refills Prov: KIMO HARRY MD 06/23/21 KIMO HARRY MD Jun 23, 2021 12:31
[2021-06-23 13:03] LABS: INFLUENZA A PATIENT NEGATIVE (NEGATIVE); INFLUENZA B PATIENT NEGATIVE (NEGATIVE)
--- NOTE | 2021-06-23 13:15 | RAD ---
XR CHEST 2V History: Reason: productive cough / Spl. Instructions: / History: Comparison: June 15, 2021 Findings: No consolidation or pleural effusion. Normal heart size. No pneumothorax. Impression: 1. No acute cardiopulmonary process. Electronically signed by: Stephan Zavala DO (06/23/2021 1:13 PM) [facility]
[2021-06-23] MEDS ORDERED: ALBU2.5V8 INH (13:25)
[2021-06-23 13:30] VITALS: BP 112/62
== END 2021-06-23 13:37 | disposition home or self-care (01) ==
LOC: ER 12:05
DX: R05.3 Chronic cough (principal); R06.02 Shortness of breath; E78.00 Pure hypercholesterolemia, unspecified; G43.909 Migraine, unspecified, not intractable, without status migrainosus; Z20.822 Contact with and (suspected) exposure to COVID-19; Z87.442 Personal history of urinary calculi
CPT/HCPCS: 71046; 87428; 94640; 99284